=== PATIENT | female | born 1970 | race Caucasian/White ===

== ENCOUNTER 2017-08-11 17:50 | Observation (INO) ==
[2017-08-11] MEDS ORDERED: Aspirin 81 MG TAB.CHEW PO ONE (17:55)
--- NOTE | 2017-08-11 18:00 | Emergency Department Note ---
Disposition Clinical Impression: Chest pain Qualifiers: Chest pain type: unspecified Qualified Code(s): R07.9 - Chest pain, unspecified Dyspnea Qualifiers: Dyspnea type: unspecified Qualified Code(s): R06.00 - Dyspnea, unspecified Disposition: Admitted As Inpatient Condition: Good Referrals: Vishal Ramirez MD [Primary Care Provider] - Forms: ED Satisfaction Letter Time of Disposition: 19:24 Chest Pain HPI - General Chief Complaint: ED Chest Pain Stated Complaint: CP,AZAEL Time Seen by Provider: 08/11/17 17:53 Source: patient Mode of arrival: wheelchair Limitations: no limitations Vital Signs Reviewed: Yes Nursing Notes Reviewed: Yes - History of Present Illness HPI Narrative: 46-year-old comes in complaining of chest pain and shortness of breath for the last 2 months. Patient does have a history of CHF in the past. States that she spoke to her doctor on Saturday and the plan was to get an echo which has not been ordered yet. She states she has some exertional dyspnea. Review of records indicate an echo done back in May 2016 showed an EF of 50%, and a nuclear stress was negative at that time. Pt complaint: chest pain, other Onset (ago): week(s) (Dyspnea for) Onset: during exertion Pain Location: substernal, left chest Severity: moderate Quality: tightness, aching Pain Radiation: none Improves with: nothing Worsens with: exertion - Related Data Home Medications Medication Instructions Recorded Confirmed Carvedilol [Coreg] 25 mg PO BID 03/29/16 06/22/16 Losartan Potassium [Cozaar] 100 mg PO DAILY 03/29/16 06/22/16 Insulin Glargine,Hum.rec.anlog 50 unit SQ HS 06/22/16 06/22/16 [Lantus Solostar] Lantus 01/01/17 Lyrica 01/01/17 Amoxil 01/21/17 Eardrops 01/21/17 Previous Rx's Medication Instructions Recorded Promethazine [Phenergan] 25 mg PO Q6-8H PRN #9 tablet 01/01/17 Carbamide Peroxide 5 - 10 drop RIGHT EAR BID 4 Days 01/21/17 drops Allergies Allergy/AdvReac Type Severity Reaction Status Date / Time No Known Allergies Allergy Verified 06/22/16 08:56 All systems ED: reviewed and negative except as stated. Constitutional: Denies: fever, chills, weakness, weight change Eyes: Denies: eye pain, eye discharge, vision change ENT ED: Denies: ear pain, throat pain, dental pain, hearing loss, epistaxis, congestion, dysphagia Cardiovascular: Reports: chest pain, dyspnea on exertion. Denies: palpitations , edema, syncope Respiratory: Denies: cough, dyspnea, wheezes, hemoptysis, stridor Gastrointestinal: Denies: abdominal pain, nausea, vomiting, diarrhea, constipation, hematemesis, melena, hematochezia Genitourinary: Denies: dysuria, frequency, hematuria, discharge Musculoskeletal: Denies: back pain, neck pain, arthralgia, myalgia Integumentary: Denies: rash, abrasion, lesions Neurological: Denies: headache, weakness, numbness, paresthesias, confusion, abnormal gait, vertigo Psychiatric: Denies: anxiety, depression, suicidal thoughts, homicidal thoughts , auditory hallucinations, visual hallucinations Endocrine: Denies: fatigue Hematological/Lymphatic: Denies: easy bleeding, easy bruising Allergic/Immunologic: Denies: facial swelling, urticaria Chest Pain PMH - Past Medical History Medical history: Reports: other Surgical history: Reports: Psychiatric history: Reports: no psych history [employer] history: Reports: no [employer] history - Social History Smoking Status: Never smoker Alcohol use: Reports: none Drug use: Reports: none Physical Exam - General Limitations: no limitations General appearance: alert, in no apparent distress - Head Head exam: atraumatic, normocephalic, normal inspection - Eye Eye exam: Present: normal appearance - ENT ENT exam: normal exam, normal oropharynx, mucous membranes moist - Neck Neck exam: Present: normal inspection, full ROM, trachea midline - Chest Chest inspection: Present: normal inspection, symmetric chest wall rise - Respiratory Respiratory exam: Present: normal lung sounds bilaterally - Cardiovascular Cardiovascular exam: Present: regular rate, normal rhythm, normal heart sounds - Abdominal Exam Abdominal exam: Present: soft, Non-Tender. Absent: tenderness, distention, guarding, rebound, rigidity - Extremities Exam Extremities exam: Present: normal inspection, full ROM. Absent: tenderness, pedal edema - Expanded Lower Extremity Exam Neurovascular/Tendon exam: Absent: motor deficit, sensory deficit, tendon deficit Gait: not tested/not observed - Back Exam Back exam: Present: normal inspection, full ROM. Absent: tenderness - Neurological Exam Neurological exam: Present: alert - Psychiatric Psychiatric exam: Present: normal affect, normal mood - Skin Skin exam: Present: warm, dry, intact, normal color Course - Reevaluation(s) Reevaluation #1: 46-year-old with history CHF comes in complaining of increasing exertional dyspnea started about 2 months ago has gotten progressively worse. Workup here showed EKG shows underlying rhythm appears to be same as previous however she does have frequent PVCs. BNP is elevated 324 chest x-ray shows right perihilar opacities. No evidence of congestive changes. We'll admit. Time: 19:24 - Consultations Consultation #1: Discussed with Remedios Iverson, admit Time: 19:23 Vital Signs Temperature 98.1 F 08/11/17 17:56 Pulse Rate 85 08/11/17 17:56 Respiratory Rate 20 08/11/17 17:56 Blood Pressure 173/122 08/11/17 17:56 O2 Sat by Pulse Oximetry 94 08/11/17 17:56 Temperature 98.1 F 08/11/17 17:56 Pulse Rate 91 08/11/17 18:59 Respiratory Rate 18 08/11/17 18:59 Blood Pressure 164/89 08/11/17 18:59 O2 Sat by Pulse Oximetry 90 08/11/17 18:59 Oxygen Delivery Oxygen Delivery Room Air Chest Pain - Lab Data Result diagrams: 08/11/17 18:09 08/11/17 18:09 Lab Results 08/11/17 08/11/17 08/11/17 Range/Units 18:09 18:09 18:09 WBC 8.5 (4.3-11.1) K/mcL RBC 5.09 H (3.82-4.97) M/mcL Hgb 13.5 (11.5-15.4) g/dL Hct 41.6 (35.3-44.9) % MCV 81.7 L (83.0-100.0) fL MCH 26.5 L (28.0-33.3) pg MCHC 32.5 (31.6-35.5) g/dL RDW 13.3 (11.5-14.5) % Plt Count 188 (140-400) K/mcL MPV 12.0 (9.4-12.4) fL Immature Gran % 0.4 (0-4) % Seg Neutrophils % 66.2 % Lymphocytes % 27.1 % Monocytes % 4.7 % Eosinophils % 1.1 % Basophils % 0.5 % Neutrophils # 5.7 (1.6-8.9) K/mcL Lymphocytes # 2.3 (0.6-4.6) K/mcL Monocytes # 0.4 (0.0-1.3) K/mcL Eosinophils # 0.1 (0.0-0.6) K/mcL Basophils # 0.0 (0.0-0.2) K/mcL PT 11.7 (9.4-12.1) Seconds INR 1.1 APTT 32.6 (26.0-36.0) Seconds Sodium 135 L (136-145) mEq/L Potassium 3.9 (3.5-4.5) mEq/L Chloride 102 (98-109) mEq/L Carbon Dioxide 22 (19-29) mEq/L BUN 16 (7-20) mg/dL Creatinine 0.82 (0.57-1.11) mg/dL Est GFR ( Amer) > 60 (> 60) Est GFR (Non-Af Amer) > 60 (> 60) BUN/Creatinine Ratio 20 (6-26) Glucose 264 H (70-99) mg/dL Calculated Osmolality 290 (280-300) Calcium 9.1 (8.6-10.8) mg/dL Troponin I (0-0.03) ng/mL B-Natriuretic Peptide (0-100) pg/mL 08/11/17 08/11/17 Range/Units 18:09 18:09 WBC (4.3-11.1) K/mcL RBC (3.82-4.97) M/mcL Hgb (11.5-15.4) g/dL Hct (35.3-44.9) % MCV (83.0-100.0) fL MCH (28.0-33.3) pg MCHC (31.6-35.5) g/dL RDW (11.5-14.5) % Plt Count (140-400) K/mcL MPV (9.4-12.4) fL Immature Gran % (0-4) % Seg Neutrophils % % Lymphocytes % % Monocytes % % Eosinophils % % Basophils % % Neutrophils # (1.6-8.9) K/mcL Lymphocytes # (0.6-4.6) K/mcL Monocytes # (0.0-1.3) K/mcL Eosinophils # (0.0-0.6) K/mcL Basophils # (0.0-0.2) K/mcL PT (9.4-12.1) Seconds INR APTT (26.0-36.0) Seconds Sodium (136-145) mEq/L Potassium (3.5-4.5) mEq/L Chloride (98-109) mEq/L Carbon Dioxide (19-29) mEq/L BUN (7-20) mg/dL Creatinine (0.57-1.11) mg/dL Est GFR ( Amer) (> 60) Est GFR (Non-Af Amer) (> 60) BUN/Creatinine Ratio (6-26) Glucose (70-99) mg/dL Calculated Osmolality (280-300) Calcium (8.6-10.8) mg/dL Troponin I 0.01 (0-0.03) ng/mL B-Natriuretic Peptide 354 H (0-100) pg/mL - EKG Data EKG attestation: Yes I reviewed and interpreted this EKG. EKG shows normal: sinus rhythm Rate: normal Rhythm: NSR, PVC's When compared to previous EKG there are: changes noted (H and underlying morphology looks similar to previous EKG done on 06/23/2016 however recurrent PVCs are new) Heart Score - Score History: Moderately Suspicious EKG: Non Specific repolarisation Disturbance Age: 45-65 Risk Factors: Equal/Greater than 3 risk factor or history of atherosclerotic disease Troponin: Less than normal limit HEART Score Total: 5
[2017-08-11 18:25] LABS: Basophils % 0.5 %; Eosinophils # 0.1 K/mcL (0.0-0.6); Eosinophils % 1.1 %; Hematocrit 41.6 % (35.3-44.9); Hemoglobin 13.5 g/dL (11.5-15.4); Immature Granulocytes % 0.4 % (0-4); Lymphocytes # 2.3 K/mcL (0.6-4.6); Lymphocytes % 27.1 %; Mean Corpuscular HGB Conc 32.5 g/dL (31.6-35.5); Mean Corpuscular Hemoglobin 26.5 pg (28.0-33.3); Mean Corpuscular Volume 81.7 fL (83.0-100.0); Monocytes # 0.4 K/mcL (0.0-1.3); Monocytes % 4.7 %; Neutrophils # 5.7 K/mcL (1.6-8.9); Platelet Count 188 K/mcL (140-400); Red Blood Count 5.09 M/mcL (3.82-4.97); Red Cell Distribution Width 13.3 % (11.5-14.5); Segmented Neutrophils % 66.2 %
[2017-08-11 18:30] LABS: INR 1.1; Prothrombin Time 11.7 Seconds (9.4-12.1)
[2017-08-11 18:32] LABS: Activated Partial Thrombo Time 32.6 Seconds (26.0-36.0)
[2017-08-11 18:38] LABS: BUN/Creatinine Ratio 20 (6-26); Blood Urea Nitrogen 16 mg/dL (7-20); Calcium 9.1 mg/dL (8.6-10.8); Carbon Dioxide 22 mEq/L (19-29); Chloride 102 mEq/L (98-109); Glucose 264 mg/dL (70-99); Osmolality,Calculated 290 (280-300); Potassium 3.9 mEq/L (3.5-4.5); Sodium 135 mEq/L (136-145); eGFR For African Americans > 60 (> 60); eGFR For Non-African Americans > 60 (> 60)
[2017-08-11] MEDS ORDERED: Furosemide 40 MG/4 ML VIAL IVP ONE (19:12)
[2017-08-11] MEDS ORDERED: Nitroglycerin 1 INCH/GM PACKET TP ONE (19:13)
--- NOTE | 2017-08-11 21:34 | Internal Med History&Physical ---
Date of Encounter: 08/11/17 Time of Encounter: 21:34 Assessment and Plan (1) Dyspnea Current visit: Yes Status: Acute Patient reports acute on chronic dyspnea on exertion dating back to 2-3 months ago. She denies chest pain. She also endorsed weight gain in the past 2 months. Patient does have history of CHF but is currently euvolemic. Patient endorsed symptoms and signs consistent with obstructive sleep apnea and obesity hypoventilation syndrome. CXR with non-specific per-mediastinal opacities We will obtain echocardiogram. Her dyspnea seems to be possibly secondary to TAURUS/OHS. Oxygen supplementation when necessary PFT as out-patient Qualifiers: Dyspnea type: dyspnea on exertion Qualified Code(s): R06.09 - Other forms of dyspnea (2) Congestive heart failure (CHF) Current visit: Yes Status: Chronic Patient with chronic diastolic CHF. She does present with dyspnea on exertion, however patient is on Lasix at home and has no evidence of hypovolemia. She has no JVD, her chest is clear to auscultation bilaterally, chest x-ray shows no pulmonary edema or pulmonary vascular congestion, she has no pedal edema. She is a non-smoker We will continue her home doses of Lasix. We will repeat echocardiogram Qualifiers: Congestive heart failure type: diastolic Congestive heart failure chronicity: chronic Qualified Code(s): I50.32 - Chronic diastolic (congestive ) heart failure (3) HTN (hypertension) Current visit: Yes Status: Chronic Uncontrolled hypertension Resume home medications and titrate when necessary Qualifiers: Hypertension type: essential hypertension Qualified Code(s): I10 - Essential (primary) hypertension (4) Hypothyroid Current visit: Yes Status: Chronic Check TSH. Continue home doses of Synthroid. Qualifiers: Hypothyroidism type: unspecified Qualified Code(s): E03.9 - Hypothyroidism , unspecified (5) Insulin dependent diabetes mellitus Current visit: Yes Status: Chronic Fingerstick before meals at bedtime Resume insulin. Diabetic diet (6) Obesity (BMI 30-39.9) Current visit: Yes Status: Chronic Lifestyle modification Internal Medicine - H&P: HPI Chief complaint: Dyspnea on exertion Admitted From: Home Plans for Post Hospital Care: Home History of present illness: Ms. Woo is a 46 year old female with medical history of obesity, diabetes mellitus, hypertension, hypothyroidism, CHF with preserved ejection fraction. Patient presents to the ER with complaints of a 2 month history of shortness of breath on exertion. She denies chest pain. The patient reports that she has been having dyspnea on exertion and upon laying down for the past 2 months. She also reports having had to sleep in a recliner because of dyspnea. She denies PND. She presented to her primary care physician 3 days ago and ordered an echocardiogram however, patient reports she was also concerned with her dyspnea his she presented to the ER. The patient also reports that her partner has found her not breathing on many nights, with associated apneic episodes. She denies leg swelling. She is chronically on Lasix for her CHF. She denies any abdominal symptoms. She does not for home oxygen. Workup in the ER reveals essentially normal chemistry and CBC, troponin is negative. BNP 354. Chest x-ray shows right paramediastinal opacities that are nonspecific. Her EKG shows normal sinus rhythm with low voltage and other findings consistent with pulmonary disease. She had a catheter in 2012 and was normal. She had a negative stress test in 2016. Echocardiogram approximately 1 year ago was mild diastolic dysfunction. Past Med Surg Social Fam HX - Past Medical History Medical history: CHF, diabetes, hypertension, other Psychiatric history: anxiety - Past Surgical History Surgical History: - Social History Smoking Status: Never smoker Smokeless Tobacco Status: No Alcohol use: none Drug use: none - Family History Sister Living Status: Still Living Hx Family Cardiac Disorders: Yes Hx Family Endocrine Disorder: Yes Internal Medicine - H&P: Meds Carvedilol [Coreg] 25 mg PO BID 03/29/16 [History] Losartan Potassium [Cozaar] 100 mg PO DAILY 03/29/16 [History] Insulin Glargine,Hum.rec.anlog [Lantus Solostar] 30 unit SQ BID 06/22/16 [ History] Lyrica 100 mg PO TID 01/01/17 [History] DULoxetine [Cymbalta] 30 mg PO DAILY 08/11/17 [History] Furosemide [Lasix] 40 mg PO HS 08/11/17 [History] Levothyroxine [Synthroid] 75 mcg PO DAILY 08/11/17 [History] Levothyroxine [Synthroid] mcg PO 08/11/17 [History] 3 Allergy/AdvReac Type Severity Reaction Status Date / Time No Known Allergies Allergy Verified 06/22/16 08:56 All Systems PM: A 10-system review of systems was performed and is negative for pertinent findings except as documented above in the HPI. - Constitutional Constitutional: no chills, no fever(s), no night sweats - EENT Eyes: no change in vision, no discharge, no pain, no photophobia Nose, mouth and throat: no dysphagia, no nasal discharge, no neck pain, no sore throat - Cardiovascular Cardiovascular ROS IM: as per HPI - Respiratory Respiratory: as per HPI - Gastrointestinal Gastrointestinal: no abdominal pain, no diarrhea, no hematemesis, no hematochezia, no melena, no nausea, no vomiting - Genitourinary Genitourinary: no change in urinary stream, no dysuria, no flank pain, no hematuria - Musculoskeletal Musculoskeletal ROS IM: no numbness, no tingling - Integumentary Integumentary IM: no rash, no unusual bruising - Neurological Neurological ROS: no confusion, no convulsions, no focal weakness, no numbness, no tingling, no tremor(s) - Hematologic/Lymphatic Hematologic/Lymphatic: no easy bruising - Constitutional Vitals: Temp Pulse Resp BP Pulse Ox 98.1 F 83 20 168/94 90 08/11/17 17:56 08/11/17 19:48 08/11/17 20:35 08/11/17 20:35 08/11/17 19:54 General appearance: Present: A&O X 3, pleasant, no acute distress, obese, answers questions appropriately - Head Head exam: Present: atraumatic, normocephalic - Eye Eye exam: Present: PERRL, conjuntiva pink, sclera anicteric Pupils: Present: PERRL - ENT ENT exam: Present: mucous membranes moist - Neck Additional comments: No JVD - Respiratory Additional comments: Visit to auscultation bilaterally, no wheezing or crackles nor rhonchi - Cardiovascular Cardiovascular exam: Present: RRR, +S1, +S2. Absent: diastolic murmur, gallop, rubs, systolic murmur - GI/Abdominal GI/Abdominal exam: Present: normal bowel sounds, soft, no peritoneal signs. Absent: distended, tenderness - Extremities Exam Extremities exam: Present: warm, radial pulses palpable and symmetrical. Absent : calf tenderness, cyanotic, pedal edema - Neurological Exam Neurological exam: Present: alert, CN II-XII intact, oriented X3, no focal deficits. Absent: pronater drift, facial droop, speech deficit - Skin Skin exam: Present: dry, intact Internal Med - H&P Results - Labs CBC & Chem 7: 08/11/17 18:09 08/11/17 18:09
[2017-08-11] MEDS ORDERED: *HR* HYDROcodone/Acet 5/325 mg TABLET PO PRN (21:39)
[2017-08-11] MEDS ORDERED: *HR* Morphine 2 MG/ML SYRINGE IVP PRN (21:39)
[2017-08-11] MEDS ORDERED: Naloxone 0.4 MG/ML INJ IVP PRN (21:39)
[2017-08-11] MEDS ORDERED: Acetaminophen 325 MG TABLET PO PRN (21:39)
[2017-08-11] MEDS ORDERED: Ondansetron 4 MG/2 ML VIAL IVP PRN (21:39)
[2017-08-11] MEDS ORDERED: D5% in Water 1,000 ML IVC PRN (22:34)
[2017-08-11] MEDS ORDERED: *HR* Dextrose 50 % in Water (Syg) 50 ML SYRINGE IVP PRN (22:34)
[2017-08-11] MEDS ORDERED: Dextrose Gel 15 GM PO PRN ×2 (22:34)
[2017-08-12] MEDS: *HR* Heparin 5,000 UNIT/ML VIAL SQ SCH ×3 (00:43→15:48)
[2017-08-12 05:17] LABS: Basophils % 0.5 %; Eosinophils # 0.2 K/mcL (0.0-0.6); Eosinophils % 2.7 %; Hemoglobin 12.9 g/dL (11.5-15.4); Immature Granulocytes % 0.2 % (0-4); Lymphocytes % 33.7 %; Mean Corpuscular HGB Conc 32.3 g/dL (31.6-35.5); Mean Corpuscular Hemoglobin 26.7 pg (28.0-33.3); Mean Corpuscular Volume 82.8 fL (83.0-100.0); Mean Platelet Volume 12.4 fL (9.4-12.4); Monocytes # 0.4 K/mcL (0.0-1.3); Monocytes % 7.2 %; Neutrophils # 3.3 K/mcL (1.6-8.9); Platelet Count 164 K/mcL (140-400); Red Blood Count 4.83 M/mcL (3.82-4.97); Red Cell Distribution Width 13.4 % (11.5-14.5); Segmented Neutrophils % 55.7 %
[2017-08-12 05:46] LABS: BUN/Creatinine Ratio 20 (6-26); Blood Urea Nitrogen 18 mg/dL (7-20); Calcium 9.1 mg/dL (8.6-10.8); Carbon Dioxide 24 mEq/L (19-29); Chloride 101 mEq/L (98-109); Glucose 394 mg/dL (70-99); Osmolality,Calculated 298 (280-300); Potassium 3.8 mEq/L (3.5-4.5); Sodium 135 mEq/L (136-145); eGFR For African Americans > 60 (> 60); eGFR For Non-African Americans > 60 (> 60)
[2017-08-12] MEDS: Insulin LISPRO 300 UNITS/3 ML VIAL SQ SCH ×6 (08:11→17:40)
[2017-08-12] MEDS: Pregabalin 50 MG CAPSULE PO SCH ×2 (08:12→15:48)
[2017-08-12] MEDS ORDERED: Furosemide 40 MG/4 ML VIAL IVP SCH (09:00)
--- NOTE | 2017-08-12 12:17 | Cardiology Consult Note ---
Date of Encounter: 08/12/17 Time of Encounter: 12:15 Assessment and Plan (1) Chest pain Current Visit: Yes Status: Acute Per Cardiology: CT Negative PE. Trop negative x 1. Had negative stress test June 2016. Current echo shows EF 50%, moderate diastolic dysfunction, no significant valvular dysfunction. Atypical CP-- occurs at rest, with coughing, and deep inspiration. Normal coronary angiogram 2012. Negative nuclear stress test 2015. EF on echo 50%, no significant valvular abnormality. No further ischemic evaluation warranted at this time. Consider non-cardiac causes of CP. Discussed with Dr. Proctor, will s/o, re-consult PRN, has follow-up scheduled. Patient and verbalized understanding and agreed with plan. Qualifiers: Chest pain type: unspecified Qualified Code(s): R07.9 - Chest pain, unspecified (2) Congestive heart failure (CHF) Current Visit: Yes Status: Chronic Per Cardiology: Last echo May 2016 showed EF 50%, mild to moderate LV dilation, mild diastolic dysfunction. Current echo shows moderate diastolic dysfunction. BNP only 354. Chest x-ray shows no effusions. Clinically euvolemic on exam. On IV Lasix 40mg daily-- takes Lasix 40mg PO daily at home. Reports weight up about 15 lbs over past few months. Qualifiers: Congestive heart failure type: diastolic Congestive heart failure chronicity: chronic Qualified Code(s): I50.32 - Chronic diastolic (congestive ) heart failure (3) PVC (premature ventricular contraction) Current Visit: Yes Status: Chronic Per Cardiology: Hx of PVCs. Appears asymptomatic. On BB. Discussion w patient/family: The assessment and plan as outlined above was discussed with the patient and/or family members who expressed understanding and agreement. All questions were answered. Thank you for involving us in the care of your patient. Please call with any questions. History of Present Illness Consult date: 08/12/17 Consult reason: CP, CHF Chief complaint: CP, SOB History of present illness: Ms. Woo is a 46 year old female with a relevant past medical history of hypertension, hypothyroidism, diabetes mellitus type 2, CHF. Last seen by Dr. Thomas November 2016 with cardiology. Cardiology consult for diastolic heart failure and chest pain. Patient reports left chest wall aching sensation with coughing and deep inspiration. She reports chronic now for about 2 months with dry persistent cough. She denies any fever, chills, nausea, vomiting, diarrhea. Reports cough nonproductive. She reports concern of overall 15 pound weight gain over the past few months. Denies any edema or swelling. Reports takes Lasix 40 mg by mouth daily at home. She reports she feels "suffocating". She indicates difficulty with breathing at rest and with exertional activities. reports she stops breathing at night and snores. Never been diagnosed with sleep apnea in the past. She denies any history of nicotine abuse. She denies any active bleeding or blood loss. Denies any palpitations. Reports history PVCs. Past Med Surg Social Fam HX - Past Medical History Attestation: Yes The following information was validated with the patient. Source: patient, old records reviewed Medical history: CHF, diabetes, hypertension, other Psychiatric history: anxiety - Past Surgical History Surgical History: - Social History Smoking Status: Never smoker Smokeless Tobacco Status: No Alcohol use: none Drug use: none - Family History Sister Living Status: Still Living Hx Family Cardiac Disorders: Yes Hx Family Endocrine Disorder: Yes Medications and Allergies Carvedilol [Coreg] 25 mg PO BID 03/29/16 [History] Losartan Potassium [Cozaar] 100 mg PO DAILY 03/29/16 [History] Insulin Glargine,Hum.rec.anlog [Lantus Solostar] 30 unit SQ BID 06/22/16 [ History] Lyrica 100 mg PO TID 01/01/17 [History] DULoxetine [Cymbalta] 30 mg PO DAILY 08/11/17 [History] Furosemide [Lasix] 40 mg PO HS 08/11/17 [History] Levothyroxine [Synthroid] 75 mcg PO DAILY 08/11/17 [History] Levothyroxine [Synthroid] mcg PO 08/11/17 [History] 3 Allergy/AdvReac Type Severity Reaction Status Date / Time No Known Allergies Allergy Verified 06/22/16 08:56 All Systems Review: A 10-system review of systems was performed and is negative for pertinent findings except as documented above in the HPI. - Constitutional Constitutional: fatigue - Cardiovascular Cardiovascular: as per HPI, chest pain at rest, dyspnea at rest, dyspnea on exertion Physical Examination Vital Signs, Last 4 Hours Temp Pulse Resp BP Pulse Ox 08/12/17 11:13 97.6 F 65 16 112/75 96 General: Conversant, No Apparent Distress HEENT: Atraumatic, Normocephaly, Mucus Membranes Moist Neck: No JVD, Normal carotid pulses Cardiac: Reg Rate and Rhythm, Normal S1 and S2, No Murmur Lungs: Normal Breath Sounds, No Wheeze, Rales, Rhonchi Neuro: Alert and responsive, No focal deficits noted Abdomen: Soft, Non-Tender Skin: No rashes noted on visualized skin Musculoskeletal: No Chest Wall Tenderness Extremities: No Clubbing, No Cyanosis, No Edema, Normal Pulses Results 08/12/17 04:38 08/12/17 04:38 Lab Results Laboratory Tests 08/11/17 08/11/17 08/11/17 18:09 18:09 18:09 INR 1.1 Troponin I 0.01 B-Natriuretic Peptide 354 H TSH 08/12/17 04:38 INR Troponin I B-Natriuretic Peptide TSH 5.687 H ITS Impressions Chest X-Ray 08/11/17 17:55 IMPRESSION: Mild hazy right paramediastinal opacities. D/ / Avel Vazquez MD / Avel Vazquez MD Interpreting Provider: Avel Vazquez MD Chest CTA 08/12/17 00:01 IMPRESSION: 1. No evidence of pulmonary embolism. 2. Constellation of findings as described is suggestive of CHF. 3. Enlarged central pulmonary trunk which may be correlated for pulmonary hypertension. D/ / Parag Ramos MD / Parag Ramos MD Interpreting Provider: Parag Ramos MD Echocardiogram 08/12/17 21:46 Impressions: LVEF 50%. Many LV segments were not well visualized. Overall, LVEF appears grossly low normal. Mildly dilated left ventricle. Moderate left ventricular diastolic dysfunction. Mildly dilated right ventricle with normal function. Moderately dilated left atrium. No evidence of pulmonary hypertension. No obvious significant valvular dysfunction. Contrast enhancement should be used with future echocardiograms. Findings: Study Quality * Technically sub-optimal due to body habitus. ECG Findings * Normal sinus rhythm. Left Ventricle * LVEF 50%. Many LV segments were not well visualized. Overall, LVEF appears grossly low normal. * Mildly dilated left ventricle. * Moderate left ventricular diastolic dysfunction. Right Ventricle * Mildly dilated right ventricle with normal function. Left Atrium * Moderately dilated left atrium. Right Atrium * Mildly dilated right atrium. Interatrial Septum * Interatrial septum not well evaluated. Aortic Valve * Aortic valve not well visualized. * No aortic regurgitation. * No aortic stenosis. Mitral Valve * Normal mitral valve structure and function. * No mitral stenosis. * No mitral regurgitation. Tricuspid Valve * Normal tricuspid valve structure and function. * Trace tricuspid regurgitation. * No evidence of pulmonary hypertension. Pulmonic Valve * Pulmonic valve not well visualized. Aorta * Normally sized aortic root. Pericardium * The pericardium appears normal. IVC * Normal IVC dimensions and inspiratory collapse. Pulmonary Artery * Normal visualized portions of the main pulmonary artery. - Imaging and Cardiology Chest Xray: report reviewed Stress Test: report reviewed Echo: report reviewed - EKG Interpretation EKG results cardiology: personally reviewed (ST with PVCs), other Consult Discharge Plan - Plan [place] [facility] [place] [Primary Care Provider] -
[2017-08-12 14:39] VITALS: BP 126/81
--- NOTE | 2017-08-12 14:58 | Electrocardiograph Report ---
[address] [address] Test Date: 2017-08-11 Pat Name: Ally Woo Department: 102 Room: 3A33 Gender: F Block Mason: George : 1970 Requested By: Juan Méndez Order Number: [id number] Reading MD: Josué Castillo MD Measurements Intervals [place] Rate: 102 P: 17 OR: 161 QRS: 34 QRSD: 88 T: 10 QT: 424 QTc: 483 Interpretive Statements SINUS TACHYCARDIA WITH FREQUENT VENTRICULAR PREMATURE COMPLEXES INDETERMINATE AXIS LOW QRS VOLTAGE IN EXTREMITY LEADS Poor R wave progression Electronically Signed On 08-12-2017 14:56:36 EDT by Josué Castillo MD
--- NOTE | 2017-08-12 16:16 | Discharge Summary ---
Date of Encounter: 08/12/17 Time of Encounter: 16:14 - Discharge Diagnosis (1) Congestive heart failure (CHF) Priority: Primary Status: Chronic Qualifiers: Congestive heart failure type: diastolic Congestive heart failure chronicity: acute on chronic Qualified Code(s): I50.33 - Acute on chronic diastolic (congestive) heart failure (2) Dyspnea Priority: Secondary Status: Acute Qualifiers: Dyspnea type: dyspnea on exertion Qualified Code(s): R06.09 - Other forms of dyspnea (3) HTN (hypertension) Priority: Secondary Status: Chronic Qualifiers: Hypertension type: essential hypertension Qualified Code(s): I10 - Essential (primary) hypertension (4) Hypothyroid Priority: Secondary Status: Chronic Qualifiers: Hypothyroidism type: unspecified Qualified Code(s): E03.9 - Hypothyroidism , unspecified (5) Insulin dependent diabetes mellitus Priority: Secondary Status: Chronic (6) Obesity (BMI 30-39.9) Priority: Secondary Status: Chronic (7) Bilateral pleural effusion Priority: Secondary Status: Acute - Discharge Medications Prescriptions: Furosemide [Lasix] 40 mg PO BID #30 tablet Home Medications: Carvedilol [Coreg] 25 mg PO BID 03/29/16 [History] Losartan Potassium [Cozaar] 100 mg PO DAILY 03/29/16 [History] Insulin Glargine,Hum.rec.anlog [Lantus Solostar] 30 unit SQ BID 06/22/16 [ History] Lyrica 100 mg PO TID 01/01/17 [History] DULoxetine [Cymbalta] 30 mg PO DAILY 08/11/17 [History] Levothyroxine [Synthroid] 75 mcg PO DAILY 08/11/17 [History] Levothyroxine [Synthroid] mcg PO 08/11/17 [History] Furosemide [Lasix] 40 mg PO BID #30 tablet 08/12/17 [Rx] Allergies/Adverse Reactions: 3 Allergy/AdvReac Type Severity Reaction Status Date / Time No Known Allergies Allergy Verified 06/22/16 08:56 Procedures/tests Complete & Pending: Procedures Performed prior 72 hours Category Date Time Status CT angio chest [CT] Stat Cat Scan 08/12/17 00:01 Completed EV echocardiogram Routine Y 08/12/17 21:46 Completed - Notes to Outpatient Provider TSH slightly elevated at 5.6. Consider increasing the levothyroxine dosage if not recently increased. Date of admission: 08/11/17 20:04 Primary care physician: Vishal Ramirez MD Consults: 08/12/17 11:27 Consult to Cardiology [CONS] Routine Comment: Consulting Provider: Olaf Pino Reason for Consult: Diastolic CHF- per Echo/ Chest pain Time Notified: 11:31 Call Completed: Yes Discharging clinician: Lu Liriano Anticipated date of discharge: 08/12/17 - Patient Status Disposition: Home, Self-Care Condition: Good Functional capacity at discharge: independent ambulation Overall status at discharge: patient is progressing back to baseline - Ambulatory Orders Ambulatory Orders: XR chest 1V [XR] Time Frame: 1 Month, Facility: [facility], Location: Radiology Basic Metabolic Panel [CHEM] Time Frame: 1 Week, Facility: [facility], Location: Lab - Discharge Instructions Instructions: Heart Failure (DC), Chronic Hypertension (DC) Follow Up With: Vishal Ramirez MD [Primary Care Provider] - (in 1 week) Additional Instructions: Follow up with cardiology as scheduled. Sleep study as outpatient. Take Lasix 40 mg twice daily for 1 week and then change back to 40 mg daily. - Diet and Activity Activity: increase activity as tolerated (Return to work 08/14/17) Diet: diabetic diet, low fat, low cholesterol, low salt diet, other (Fluid restriction to 1.5-2 L per 24 hours) Hospital course: Ms. Woo is a 46 year old female sent with a history of diastolic heart failure who came to the ER with complaints of worsening exertional dyspnea for the past 2-3 months with worsening weight gain, orthopnea and PND. She had also been having episodes of snoring at night she stops breathing. She follows up with cardiology as outpatient. Her chest x-ray suggested pulmonary congestion. CT scan of the chest was also done which did not show any pulmonary embolism. Patient did have mild to moderate bilateral pleural effusions. Her BNP was slightly elevated at 354 which is above her baseline. She had also been having increased weight gain recently. Given these findings, she was observed for evaluation for dyspnea and exertion possibly related to acute congestive heart failure. She was treated with IV Lasix. This morning she feels somewhat better but also reported some left-sided chest pain. Cardiology was consulted. They evaluated the patient and did not think that the patient was having anginal pain. They recommended no further ischemic workup. For her heart failure, and recommended continuing Lasix and outpatient follow-up in the clinic. At this time, patient is stable to be discharged home. I am increasing her Lasix dosage to 40 mg twice daily which she can continue for 1 week and then switch back down to 40 mg daily. She will also be referred for sleep study as outpatient as she is having undiagnosed obstructive sleep apnea. I did discuss with her about the need to do pulmonary function tests but the symptoms that she had lung function test done within the past 2 years which did not show any obstructive disease. Patient does have hypothyroidism and takes levothyroxine. Her TSH level was 5.6. She can follow up further with her primary care provider. I do recommend increasing dosage of levothyroxine if this was not recently increased. - Time Spent with Patient Total time spent providing and/or coordinating discharge services: Greater than 30 minutes (32 min) - Constitutional Vitals: Temp Pulse Resp BP Pulse Ox 97.4 F L 63 16 126/81 97 08/12/17 14:36 08/12/17 14:36 08/12/17 14:36 08/12/17 14:36 08/12/17 14:36 General appearance: Present: A&O X 3, pleasant, no acute distress, obese, answers questions appropriately - Neck Neck exam general surgery: Present: supple, trachea midline. Absent: lymphadenopathy - Respiratory Respiratory exam: Present: decreased breath sounds (At both bases). Absent: accessory muscle use, rales, rhonchi, wheezes - Cardiovascular Cardiovascular exam: Present: RRR, +S1, +S2. Absent: diastolic murmur, gallop, rubs, systolic murmur - GI/Abdominal GI/Abdominal exam: Present: normal bowel sounds, soft, no peritoneal signs. Absent: distended, tenderness - Extremities Exam Extremities exam: Present: pedal edema, warm, radial pulses palpable and symmetrical. Absent: calf tenderness, cyanotic
[2017-08-12] MEDS ORDERED: Nitroglycerin 0.4 MG TAB.SUBL SL PRN (16:31)
[2017-08-12] MEDS ORDERED: FLUARIX QUAD 2017-18 36MOS UP/PF 0.5 ML SYRINGE IM ONE (17:11)
[2017-08-12] MEDS ORDERED: Insulin LISPRO 300 UNITS/3 ML VIAL SQ SCH (21:00)
[2017-08-12] MEDS ORDERED: Insulin DETEMIR 100 UNIT/ML X5UNITS SQ SCH (21:00)
== END 2017-08-12 18:00 | disposition home or self-care (01) ==
LOC: EMEROO 17:50 → 3NENU 17:50 → 3ANU 08-12 10:06
PROVIDERS: ADMIT Internal Medicine; ATTEND Internal Medicine

== ENCOUNTER 2019-02-28 15:46 | Inpatient (IN) ==
[2019-02-28] MEDS ORDERED: *HR* HYDROmorphone (PF) 1 MG/ML SYRINGE IVP ONE (17:50)
--- NOTE | 2019-02-28 18:42 | Podiatry Consult Note ---
Date of Encounter: 02/28/19 Time of Encounter: 17:35 Assessment and Plan (1) Closed trimalleolar fracture of right ankle Current visit: Yes Status: Acute Uncontrolled diabetic neuropathic female with right trimalleolar ankle fracture/dislocation unable to be reduced, transferred from [place] I had a thorough review with the patient regarding her injury/condition, my findings, and recommendations for treatment. We discussed the fracture and dislocation of the right ankle joint. We discussed that she will have arthritis of her ankle joint due to her injury. Discussed the fracture does need surgical intervention and with the tenting of the skin present and inability to reduce the ankle the patient will be brought to the operating room for ORIF of the right trimalleolar ankle fracture. Nature of this procedure, risks versus benefits potential complications and consequences of surgery and her condition discussed at length including but not limited to infection bleeding swelling numbness tingling nerve damage persistent or worsening pain heart attack pulmonary embolism blood clot pneumonia scar wound healing problems delayed or nonunion of fracture lack of procedure to produce desired outcome loss of functionality loss of leg need for hardware removal need for further surgery etc. all of her questions were answered and the informed consent was signed. We did discuss a typical course of recovery and she will be nonweightbearing for at least 2-3 months or longer. The patient directly told me that she is not going to be compliant with nonweightbearing status. I told her if she is not compliant in the increased risks she has 4 developing delayed or nonhealing of bone or disrupting the healing and causing deformity and dislocation of her ankle or wound healing problems or other complications that could ultimately result in the loss of her leg or her demise. Patient says she understands. I did discuss with the patient that it is imperative that she control her blood sugar otherwise she is been more likely to have complications. Patient was discussed with hospitalist DANAO. call center associate to OR. Qualifiers: Encounter type: initial encounter Qualified Code(s): S82.851A - Displaced trimalleolar fracture of right lower leg, initial encounter for closed fracture History of Present Illness Chief complaint: right ankle fracture/dislocation HPI: Ms. Woo is a 48 year old uncontrolled diabetic female who was transferred from [place] with a right ankle fracture dislocation. The patient said she had just been discharged from the ER in [facility] where she says she was treated for a UTI and prescribed two antibiotics of which she does not know the name. She went to the [facility]. She says there she twisted her ankle and fell. She was unable to walk and was taken by EMS back to the ER. She says her ankle was deformed. She says she is an uncontrolled diabetic and does have neuropathy but she does have pain all around the right ankle. She says her knees have been unstable and had previously seen Dr. Suarez but does not know if her knees gave out and caused this fall. The ER in [place] reported the ankle fracture was open. I came in to examine the patient. Her ankle was not reduced and skin significantly tenting the skin but not open. She last ate or drank any thing at noon today. She says she is diabetic and it is not controlled well. She does not know her A1c but says she knows it's higher than 10%. Past Med Surg Social Fam HX - Past Medical History Medical history: CHF, diabetes, hypertension, migraine, thyroid disease, other Additional medical history: UTI Psychiatric history: anxiety - Past Surgical History Surgical History: Additional surgical history: LEEP procedure x2 - Social History Smoking Status: Never smoker Smokeless Tobacco Status: No Alcohol use: none Drug use: none - Family History Sister Living Status: Still Living Hx Family Cardiac Disorders: Yes (MIx2) Hx Family Endocrine Disorder: Yes Medications and Allergies Carvedilol [Coreg] 25 mg PO BID 03/29/16 [History] Insulin Glargine,Hum.rec.anlog [Lantus Solostar] 30 unit SQ BID 06/22/16 [History] Lyrica 100 mg PO TID 01/01/17 [History] DULoxetine [Cymbalta] 30 mg PO DAILY 08/11/17 [History] Levothyroxine [Synthroid] 75 mcg PO DAILY 08/11/17 [History] Furosemide [Lasix] 40 mg PO BID #30 tablet 08/12/17 [Rx] Allergy/AdvReac Type Severity Reaction Status Date / Time No Known Allergies Allergy Verified 06/22/16 08:56 All Systems Reviewed: The remainder of the systems were reviewed and are negative - Constitutional Constitutional: no fever(s) - Cardiovascular Cardiovascular: no chest pain, no dyspnea - Respiratory Respiratory: no cough, no dyspnea - Musculoskeletal Musculoskeletal: as per HPI, joint swelling, numbness, other (ankle deformity) Physical Exam - Constitutional Vitals: Temp Pulse Resp BP Pulse Ox 97.7 F 68 16 117/70 97 02/28/19 17:26 02/28/19 17:26 02/28/19 17:26 02/28/19 17:26 02/28/19 17:26 General appearance: cooperative, obese - Head Head exam: Present: atraumatic - Eye Eye exam: Present: EOMI - Respiratory Respiratory exam: Absent: respiratory distress - Cardiovascular Cardiovascular exam: Present: +S1, +S2 - Skin Skin Exam: Present: cyanosis Additional comments: ecchymosis - Ankle & Foot Appearance ankle: swelling, abrasion Tenderness with palpation ankle: anterior ankle, anteromedial ankle, lateral ankle Exam: Capillary refill time is intact to all digits of the right foot. Unable to assess range of motion secondary to injury and pain. Patient has pain with palpation medial lateral and anterior medial ankle. Abrasion is present anteromedial ankle. Small area of necrosis. No exposed bone. The dislocation of the ankle joint is significantly tenting the medial ankle skin. Patient has absent sensation to touch. X-rays: Trimalleolar ankle fracture dislocation Results - Labs Labs: All other labs normal. Consult Discharge Plan - Plan Referrals: Tracy Rizzo CNP [Primary Care Provider] -
--- NOTE | 2019-02-28 19:11 | Internal Med History&Physical ---
Date of Encounter: 02/28/19 Time of Encounter: 17:00 Internal Medicine - H&P: HPI Chief complaint: Ankle pain Admitted From: Home Plans for Post Hospital Care: Home History of present illness: Patient is a 48-year-old female with past medical history significant for systolic heart failure, hypertension, hypothyroid, diabetes and obesity who presents after tripping over a curb fracturing her ankle. Patient was taken to [facility] ER where she was found to have right trimalleolar ankle fracture/dislocation and was subsequently transferred here for surgical management. Surgery team has assessed the patient with recommendations to take patient to the OR today. Past Med Surg Social Fam HX - Past Medical History Medical history: CHF, diabetes, hypertension, migraine, thyroid disease, other Additional medical history: UTI Psychiatric history: anxiety - Past Surgical History Surgical History: Additional surgical history: LEEP procedure x2 - Social History Smoking Status: Never smoker Smokeless Tobacco Status: No Alcohol use: none Drug use: none - Family History Sister Living Status: Still Living Hx Family Cardiac Disorders: Yes (MIx2) Hx Family Endocrine Disorder: Yes Internal Medicine - H&P: Meds Carvedilol [Coreg] 25 mg PO BID 03/29/16 [History] Insulin Glargine,Hum.rec.anlog [Lantus Solostar] 30 unit SQ BID 06/22/16 [History] Lyrica 100 mg PO TID 01/01/17 [History] DULoxetine [Cymbalta] 30 mg PO DAILY 08/11/17 [History] Levothyroxine [Synthroid] 75 mcg PO DAILY 08/11/17 [History] Furosemide [Lasix] 40 mg PO BID #30 tablet 08/12/17 [Rx] Allergy/AdvReac Type Severity Reaction Status Date / Time No Known Allergies Allergy Verified 06/22/16 08:56 All Systems PM: A 10-system review of systems was performed and is negative for pertinent findings except as documented above in the HPI. - Constitutional Vitals: Temp Pulse Resp BP Pulse Ox 97.9 F 63 17 130/79 96 02/28/19 18:40 02/28/19 18:40 02/28/19 18:40 02/28/19 18:40 02/28/19 18:40 Exam: General appearance: Present: A&O X 3, no acute distress - Head Head exam: Present: normocephalic - Eye Eye exam: Present: normal appearance - ENT ENT exam: Present: mucous membranes moist - Respiratory Respiratory exam: Present: CTAB. Absent: accessory muscle use, rales, rhonchi, wheezes - Cardiovascular Cardiovascular exam: Present: RRR, +S1, +S2. Absent: diastolic murmur, gallop, rubs, systolic murmur - GI/Abdominal GI/Abdominal exam: Present: normal bowel sounds, soft, no peritoneal signs. Absent: distended, tenderness - Extremities Exam Extremities exam: Absent: pedal edema - Neurological Exam Neurological exam: Present: alert, oriented X3, no focal deficits. Absent: altered - Psychiatric Psychiatric exam: -normal mood Skin exam: -normal color - Assessment and Plan (1) Closed trimalleolar fracture of right ankle Current Visit: Yes Status: Acute Assessment and plan: Patient was taken to [facility] ER where she was found to have right trimalleolar ankle fracture/dislocation and was subsequently transferred here for surgical management. Surgery team has assessed the patient with recommendations to take patient to the OR today. Qualifiers: Encounter type: initial encounter Qualified Code(s): S82.851A - Displaced trimalleolar fracture of right lower leg, initial encounter for closed fracture (2) HTN (hypertension) Current Visit: No Status: Chronic Assessment and plan: Continue home medications Qualifiers: Hypertension type: essential hypertension Qualified Code(s): I10 - Essential (primary) hypertension (3) Hypothyroid Current Visit: No Status: Chronic Assessment and plan: Continue home medications Qualifiers: Hypothyroidism type: unspecified Qualified Code(s): E03.9 - Hypothyroidism, unspecified (4) Insulin dependent diabetes mellitus Current Visit: No Status: Chronic Assessment and plan: Continue home medications (5) CHF (congestive heart failure) Current Visit: Yes Status: Acute Assessment and plan: Euvolemic; continue home medications Qualifiers: Heart failure chronicity: chronic Qualified Code(s): I50.9 - Heart failure, unspecified - Time Spent With Patient Total time spent is greater than 50% in coordination of care (as documented) at patient's floor/unit and/or counseling patient:
[2019-02-28] MEDS ORDERED: Naloxone 0.4 MG/ML INJ IVP PRN ×2 (19:14→19:16)
--- NOTE | 2019-02-28 20:10 | Anesthesia Evaluation PreOp ---
Date of Encounter: 02/28/19 Time of Encounter: 20:08 - Past History Planned Operation: ORIF Right Ankle Cardiac History: CHF, HTN Pulmonary History: Denies Any Significant HX DIGITAL PRODUCT MANAGER History: Denies Any Significant HX, Other (Anxiety) Other Medical History: Diabetes Type II (Diabetic Neuropathy), Thyroid (Hypo) Anesthesia History: No Prior Anesthetic Complications, Past Anesthesia (c/s, LEEP x 2) : No Test: Negative (02/28/2019) Alcohol Use: none Drug use: none Medications and Allergies RX: Carvedilol [Coreg] 25 mg PO BID 03/29/16 [History] Lyrica 100 mg PO QAM 01/01/17 [History] RX: DULoxetine [Cymbalta] 30 mg PO DAILY 08/11/17 [History] RX: Levothyroxine [Synthroid] 75 mcg PO DAILY 08/11/17 [History] Furosemide [Lasix] 40 mg PO BID #30 tablet 08/12/17 [Rx] Aspirin [Lo-Dose Aspirin EC] 81 mg PO DAILY 02/28/19 [History] Entresto 97 mg-103 mg Tablet 02/28/19 [History] HumuLIN R U-500 BID 02/28/19 [History] Pregabalin [Lyrica] 200 mg PO QPM 02/28/19 [History] Trulicity QWEEK 02/28/19 [History] Allergy/AdvReac Type Severity Reaction Status Date / Time No Known Allergies Allergy Verified 06/22/16 08:56 - Meds/Allergy Pre-op Review Medications Reviewed: Yes Allergies Reviewed: Yes Beta Blockers on Current Med List: Yes If Beta Blockers taken, Date/Time (Last Dose taken): 18:23 02/28/2019 Anesthesia Results - Labs Laboratory Tests 08/11/17 10/04/18 10/04/18 18:09 17:05 17:05 WBC 7.5 Hgb 13.1 Hct 40.7 Plt Count 211 INR 1.1 Sodium 136 Potassium 4.1 Chloride 101 Carbon Dioxide 21 L BUN 37 H Creatinine 1.12 - Imaging EKG: report reviewed (SINUS RHYTHM PATTERN CONSISTENT WITH PULMONARY DISEASE LEFT ANTERIOR FASCICULAR BLOCK) Additional studies: Echocardiogram Name: Ally Tea Woo Date of Study: 03/31/2018 EV/EV echocardiogram Impressions: Unable to accurately determine the LVEF. Grossly, it appears low normal. Recommend a repeat study with [facility] at [facility]. Mildly dilated left ventricle. Indeterminate diastolic function. Normal right ventricular structure and function. No evidence of pulmonary hypertension. No significant valvular dysfunction. 07/03 Stress No ischemia EF - 57% June 2016. Echo shows EF 50%, moderate diastolic dysfunction, no significant valvular dysfunction. Anesthesia Exam Vital Signs/O2 Sat, Most Current Temp Pulse Resp BP Pulse Ox 97.9 F 63 17 130/79 96 02/28/19 18:40 02/28/19 18:40 02/28/19 18:40 02/28/19 18:40 02/28/19 18:40 Blood glucose: 142 NPO (# of Hours): > 8 hrs Pain Scale: 0 Pain Scale Used: Numeric (1 - 10) - HEENT Pupil (Motor): Pupils equal, EOMI Mallampati: II Teeth: Normal Oral Opening: Greater than 3 - DIGITAL PRODUCT MANAGER LOC: Oriented DIGITAL PRODUCT MANAGER Motor: Normal RUE, Normal LUE, Normal RLE, Normal LLE, Normal Face DIGITAL PRODUCT MANAGER Sensory: Normal: RUE, LUE, RLE, LLE, Face - Cardiac Rhythm: Regular Murmur: None JVD: No Carotid Bruit: No - Pulmonary Breath Sounds: bilateral Clear Respiratory Effort: Symmetrical Anesthesia Assess/Plan ASA Score: 3 Level of consciousness: Cooperative Anesthetic Plan: General Autologous Blood: Yes Monitoring Plan: Standard Monitors Recovery Plan: PACU
[2019-02-28] MEDS ORDERED: *HR* OxyCODONE/APAP 5/325 TABLET PO PRN (21:36)
[2019-02-28] MEDS ORDERED: *HR* Propofol 200 MG/20 ML VIAL IVP ONE (23:11)
[2019-02-28] MEDS ORDERED: *HR* FentaNYL (PF) 100 MCG/2 ML VIAL ONE (23:11)
[2019-02-28] MEDS ORDERED: Bupivacaine/EPI 1:200k 0.25%PF 30 ML VIAL ONE (23:14)
[2019-02-28] MEDS ORDERED: *HR* Labetalol 20 MG/4 ML SYRINGE IVP PRN (23:40)
[2019-02-28] MEDS ORDERED: *HR* Promethazine 25 MG/ML VIAL IVP PRN (23:40)
[2019-02-28] MEDS ORDERED: *HR* OxyCODONE Immed Rel 5 MG TABLET PO PRN (23:40)
[2019-02-28] MEDS ORDERED: Ondansetron 4 MG/2 ML VIAL IVP ONE (23:40)
[2019-02-28] MEDS ORDERED: Albuterol 2.5 MG/3 ML NEBULIZER IH ONE (23:40)
[2019-02-28] MEDS ORDERED: *HR* Morphine 2 MG/ML SYRINGE IVP PRN (23:40)
[2019-02-28] MEDS ORDERED: ceFAZolin 2,000 MG in Water for inj. (sterile) 20 ML IVP ONE (23:48)
[2019-03-01] MEDS ORDERED: *HR* Rocuronium Bromide 50 MG/5 ML VIAL ONE (00:02)
[2019-03-01] MEDS ORDERED: Dexamethasone 4 MG/ML VIAL ONE (00:02)
[2019-03-01] MEDS ORDERED: Ondansetron 4 MG/2 ML VIAL ONE (00:02)
[2019-03-01] MEDS ORDERED: *HR* Succinylcholine 200 MG/10 ML VIAL IVP ONE (00:02)
[2019-03-01] MEDS ORDERED: Lidocaine -MPF 2% 2 ML VIAL ONE (00:02)
[2019-03-01] MEDS ORDERED: ceFAZolin 2,000 MG in 0.9 % Sodium Chloride 100 ML IVP ONE (02:00)
--- NOTE | 2019-03-01 02:04 | Anesthesia Evaluation Post Op ---
Date of Encounter: 03/01/19 Time of Encounter: 02:18 - Vital Signs Vital Signs: Vital Signs/O2 Sat, Most Current Temp Pulse Resp BP Pulse Ox 98.2 F 67 14 129/73 92 03/01/19 01:54 03/01/19 02:14 03/01/19 02:14 03/01/19 02:14 03/01/19 02:14 - Lungs Lungs: Clear Ascult./Percussion - Airway Airway: Non-obstructed - Cardiovascular Regular Rate - Mental Status Mental Status: Alert & Oriented, Answers Appropriately - Pain Pain Scale: 0 Pain Scale used: Numeric (1 - 10) - Nausea Vomiting Nausea Vomiting: Not Present - Hydration Hydration: Ice chips, Has not voided - Discharge PostOp Status: Transfer Patient to floor
--- NOTE | 2019-03-01 02:08 | Operative Note ---
Date of procedure: 03/01/19 Pre-op diagnosis: right ankle fracture/dislocation Post-op diagnosis: same Procedure: ORIF right trimalleolar ankle fracture Implants: [id number] locking plate/screws, 4.0mm cannulated screw Complications: none Anesthesia: GETA Local Anesthetics: 0.25% Sensorcaine HCL with Epinephrine 1:200,000 SubQ (cc) Surgeon: Bassam Chaves Was there an purchasing assistant present: No Estimated blood loss (cc): 5 Specimen: right 5th toe culture Condition: stable Disposition: PACU Procedure in Detail: Indications: 48-year-old uncontrolled diabetic female with neuropathy sustained a right trimalleolar ankle fracture dislocation with tenting of the medial skin. Nature of procedure, risks versus benefits potential complications and consequences of surgery and her condition discussed at length. Discussed with patient is imperative that she controls her blood sugar and adheres to nonweightbearing instructions to the right lower extremity. Discussed that she is at increased risk for complications with her high blood sugar and not following directions. It was explained to the patient that she could lose her leg. All of her questions have been answered and informed consent was signed. Patient was taken from the preoperative holding area and operating room placed on the operating room table in the supine position. The right lower extremity was scrubbed prepped and draped in the usual sterile fashion. The right ankle had 0.25% Marcaine with epinephrine injected around it. Patient was also given a common peroneal posterior tibial nerve block. A thigh tourniquet was applied and inflated to 300 mmHg. The following procedure then began. ORIF right trimalleolar ankle fracture. Attention was directed to the lateral aspect of the patient's right ankle were #15 blade was used to make a skin incision approximately 8 cm in length over the fibula. The skin incision was deepened through blunt dissection, all traversing veins were divided and ligated using the Bovie or Vicryl ties as deemed appropriate. Care was taken to avoid neurovascular tendon structures. The periosteal layer was incised and freed from the fibula exposing the fracture zone of the lateral malleolus which was obliquely oriented. Hematoma was evacuated from the fracture zone. The ankle was held in a reduced position with the talus under the tibia and well aligned and the ankle mortise. C-arm was utilized to confirm reduction of the talus and the ankle mortise and that the fibula was out to length. Reduction clamps were used to stabilize the fracture zone and an aj0nwidy 3.5 cortical lag screw was thrown using standard technique. Excellent compression was noted across the fracture zone clinically. Using standard technique an [id number] locking plate was applied using 3.5 mm locking and nonlocking screws and 2.7mm locking screws to the lateral aspect of the fibula bridging the fracture zone. Given her profound neuropathy 3 screws were thrown through the plate [id number]. The fibula was out to length. The site was flushed with saline irrigation. Stability of the fracture zone was assessed and the fracture zone had good apposition and the ankle was noted to be in good position and alignment on the C-arm. Attention was then directed medially where a #15 blade was used to make a skin incision over the medial malleolus. Skin incision was deepened through blunt dissection care was taken to avoid neurovascular tendinous structures. Hematoma was evacuated from the fracture zone and periosteum removed from the fracture zone. The medial malleolar fracture fragment was then reduced with a reduction clamp and pinned temporarily. C-arm was utilized to confirm position and alignment of the k-wire traversing the fracture zone. Fracture was noted to be reduced haydee 4.0mm partially threaded cannulated [id number] screw was thrown across the fracture zone. No increase in medial clear space was noted and good tib-fib overlap was present. Reduction of the fracture zone was noted. The posterior malleolar fragment was small and the decision was made not to fixate the fragment. C-arm was utilized to confirm position and alignment of the fracture zones. There was no increased and medial clear space there was good tib-fib overlap and the talus was aligned in the ankle mortise and the fibula was out to length. Periosteal and deep layers were closed with 0 Vicryl and subcutaneous tissues were closed with 2-0 Vicryl. The skin was reapproximated with toby laterally. Postoperative bandaging included Xeroform, Adpatic (over site where skin had been tented), 4 x 4 gauze, Kerlix and an adequately padded posterior splint. The patient tolerated the anesthesia and the procedure well and was escorted to the recovery room with vital signs stable and vascular status intact to the right foot noted by instant capillary refill time to all digits of the right foot. Elevation. Strict instructions given for non-weightbearing to the right lower extremity. She will return to the floor after being monitored in the PACU. Of note at the conclusion of the procedure while applying the splint a blister was noted on the dorsolateral aspect of the 5th digit which did contain purulent drainage. A culture was obtained. toe was dressed with a sterile dressing.
[2019-03-01] MEDS ORDERED: Naloxone 0.4 MG/ML INJ IVP PRN (02:26)
[2019-03-01] MEDS ORDERED: *HR* Promethazine 25 MG/ML VIAL IVP PRN (02:26)
[2019-03-01] MEDS: *HR* OxyCODONE/APAP 5/325 TABLET PO PRN ×2 (03:16→08:07)
[2019-03-01] MEDS ORDERED: Dextrose Gel 15 GM/37.5 ML TUBE PO PRN ×2 (03:25)
[2019-03-01] MEDS ORDERED: *HR* Dextrose 50 % in Water (Syg) 50 ML SYRINGE IVP PRN (03:25)
[2019-03-01] MEDS ORDERED: D5% in Water 1,000 ML IVC PRN (03:25)
[2019-03-01] MEDS: Pregabalin 50 MG CAPSULE PO SCH ×2 (03:49→17:39)
[2019-03-01] MEDS: Insulin LISPRO 300 UNITS/3 ML VIAL SQ SCH ×5 (03:50→20:43)
[2019-03-01] MEDS: *HR* Heparin 5,000 UNIT/ML VIAL SQ SCH ×3 (06:14→21:44)
[2019-03-01 07:53] LABS: Basophils % 0.2 %; Hematocrit 31.4 % (35.3-44.9); Hemoglobin 9.9 g/dL (11.5-15.4); Immature Granulocytes % 0.5 % (0-4); Lymphocytes # 0.7 K/mcL (0.6-4.6); Lymphocytes % 11.6 %; Mean Corpuscular HGB Conc 31.5 g/dL (31.6-35.5); Mean Corpuscular Volume 85.8 fL (83.0-100.0); Monocytes # 0.2 K/mcL (0.0-1.3); Monocytes % 3.6 %; Neutrophils # 5.2 K/mcL (1.6-8.9); Platelet Count 122 K/mcL (140-400); Red Blood Count 3.66 M/mcL (3.82-4.97); Red Cell Distribution Width 13.8 % (11.5-14.5); Segmented Neutrophils % 84.1 %
[2019-03-01] MEDS ORDERED: ceFAZolin 2,000 MG in D5% in Water 100 ML IVPB SCH (08:00)
[2019-03-01] MEDS: ceFAZolin 2,000 MG in 0.9 % Sodium Chloride 100 ML IVPB SCH ×2 (08:06→16:17)
[2019-03-01 09:00] LABS: BUN/Creatinine Ratio 33 (6-26); Blood Urea Nitrogen 38 mg/dL (6-20); Calcium 8.6 mg/dL (8.6-10.3); Carbon Dioxide 25 mEq/L (23-29); Chloride 101 mEq/L (98-107); Glucose 377 mg/dL (70-105); Osmolality,Calculated 303 (280-300); Potassium 4.7 mEq/L (3.5-5.1); Sodium 134 mEq/L (136-145); eGFR For Non-African Americans 50 (> 60)
--- NOTE | 2019-03-01 09:04 | Internal Med Progress Note ---
Hospitalist Progress Note - Encounter Date of Encounter: 03/01/19 Time of Encounter: 09:00 - Subjective Interval History: Had ankle ORIF ovenright - Exam Vitals: Temp Pulse Resp BP Pulse Ox 97.5 F L 66 16 141/70 95 03/01/19 07:00 03/01/19 07:00 03/01/19 07:00 03/01/19 07:00 03/01/19 07:00 Exam: General appearance: Present: A&O X 3, no acute distress Head exam: Present: normocephalic Respiratory exam: Present: CTAB. Absent: accessory muscle use, rales, rhonchi, wheezes Cardiovascular exam: Present: RRR, +S1, +S2. Absent: diastolic murmur, gallop, rubs, systolic murmur GI/Abdominal exam: Soft, NT, ND, +BS Extremities exam: Ankle boot in place Neurological exam: Present: alert, oriented X3, no focal deficits. - Assessment and Plan (1) Closed trimalleolar fracture of right ankle Current Visit: Yes Status: Acute Assessment and Plan: Patient was taken to [facility] ER where she was found to have right trimalleolar ankle fracture/dislocation and was subsequently transferred here for surgical management. Seen by podiatry and had ORIF done in last 24hrs . PT on board and plan for discharge to rehab [facility] for DVT prophylaxis (2) HTN (hypertension) Current Visit: Yes Status: Chronic Assessment and Plan: Continue home medications (3) Hypothyroid Current Visit: Yes Status: Chronic Assessment and Plan: Continue levothyroxine (4) Insulin dependent diabetes mellitus Current Visit: Yes Status: Chronic Assessment and Plan: Patient has poor compliance with diet and insulin use Continue short and long acting insulin. Monitor fingersticks (5) CHF (congestive heart failure) Current Visit: Yes Status: Acute Assessment and Plan: Euvolemic; continue home medications. No acute exacerbation DVT Prophylaxis: Heparin sc q 8 - Time Spent with Patient Total time spent is greater than 50% in coordination of care (as documented) at patient's floor/unit and/or counseling patient: Internal Medicine: Result - Labs CBC & Chem 7: 03/01/19 07:24 03/01/19 07:24 Labs: Short CBC 03/01/19 Range/Units 07:24 WBC 6.1 (4.3-11.1) K/mcL Hgb 9.9 L (11.5-15.4) g/dL Hct 31.4 L (35.3-44.9) % Plt Count 122 L (140-400) K/mcL Neutrophils # 5.2 (1.6-8.9) K/mcL BMP 03/01/19 07:24 Sodium 134 L Potassium 4.7 Chloride 101 Carbon Dioxide 25 BUN 38 H Creatinine 1.16 Glucose 377 H Calcium 8.6 - Impressions Impressions Fluoroscopy 03/01/19 00:00 IMPRESSION: Right ankle open reduction and internal fixation with fluoroscopic guidance and spot images as above. D/ / Sancho Brady MD / Sancho Brady MD Interpreting Provider: Sancho Brady MD Consult Discharge Plan - Plan Referrals: Tracy Rizzo, BR[employer] HEAD MAKER [Primary Care Provider] - (1) Closed trimalleolar fracture of right ankle Qualifiers: Encounter type: subsequent encounter Fracture healing: with routine healing Qualified Code(s): S82.851D - Displaced trimalleolar fracture of right lower leg, subsequent encounter for closed fracture with routine healing (2) HTN (hypertension) Qualifiers: Hypertension type: essential hypertension Qualified Code(s): I10 - Essential (primary) hypertension (3) Hypothyroid Qualifiers: Hypothyroidism type: unspecified Qualified Code(s): E03.9 - Hypothyroidism, unspecified (5) CHF (congestive heart failure) Qualifiers: Heart failure chronicity: chronic
--- NOTE | 2019-03-01 09:46 | Podiatry Progress Note ---
Date of Encounter: 03/01/19 Time of Encounter: 09:42 - Assessment and Plan (1) Closed trimalleolar fracture of right ankle Current Visit: Yes Status: Acute 1. Patient progressing well POD 1 s/p ORIF right ankle fracture. Continue NWB and keep dressing/splint intact. Do not get the dressing wet. Rest and elevation of the limb above the level of the heart recommended. 2. Will need PT/OT evaluation prior to discharge. She prefers to use the walker and has a knee scooter at home. 3. Follow up with Podiatry 1 week after discharge. 4. Xarelto 10mg daily for 21 days at discharge for DVT prophylaxis. Qualifiers: Encounter type: subsequent encounter Fracture healing: with routine healing Qualified Code(s): S82.851D - Displaced trimalleolar fracture of right lower leg, subsequent encounter for closed fracture with routine healing Subjective Principal diagnosis: s/p ORIF right ankle fracture Interval history: Patient progressing well POD 1 s/p ORIF right trimalleolar ankle fracture performed by Dr. Chaves. She denies pain. Dressing and splint clean, dry, intact. She has foot in dependent position at bedside. 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 She states that she has been NWB and using walker to get to the bathroom. She denies n/v/f/c, chest pain, SOB, calf pain. Objective - Vital Signs Vital Signs: Vital Signs Temp Pulse Resp BP Pulse Ox 03/01/19 07:00 97.5 F L 66 16 141/70 95 03/01/19 06:09 98.2 F 64 14 131/71 96 03/01/19 04:55 98.4 F 70 16 112/72 96 03/01/19 03:47 98.2 F 70 14 123/67 96 03/01/19 03:10 98.2 F 68 16 136/81 96 03/01/19 02:48 84 03/01/19 02:37 97.7 F 79 14 128/85 94 03/01/19 02:24 98.1 F 67 16 137/77 92 03/01/19 02:14 67 14 129/73 92 03/01/19 02:04 67 12 133/83 92 03/01/19 01:54 98.2 F 71 12 132/76 93 02/28/19 18:40 97.9 F 63 17 130/79 96 02/28/19 17:26 97.7 F 68 16 117/70 97 Intake and Output 02/28/19 03/01/19 03/01/19 23:59 07:59 15:59 Intake Total Output Total 200 / 200 Balance -200 / -200 Intake: IV Fluids Ancef 2,000 MG In Water for inj . (sterile) 20 ML @ 200 mls/hr IVP PREOP ONE Rx#:[id number] Output: Urine 200 / 200 Estimated Blood Loss Other: # Voids 1 Weight 124 kg 125.6 kg Blood Glucose* 142 271 318 Patient Weight 03/01/19 23:59 Weight 125.6 kg - Exam Exam: Alert, oriented x3, no acute distress. Vascular: Capillary refill less than 3 seconds to digits of right foot. Dermatology: No streaking redness of the foot or leg. No strikethrough of dressing. Musculoskeletal: No pain with manual compression of calf. Able to actively move all toes of right foot. Neuro: Sensations diminished to toes of right foot. - Lab Result Diagrams: 03/01/19 07:24 03/01/19 07:24 Labs: Abnormal lab results RBC 3.66 M/mcL (3.82-4.97) L 03/01/19 07:24 Hgb 9.9 g/dL (11.5-15.4) L 03/01/19 07:24 Hct 31.4 % (35.3-44.9) L 03/01/19 07:24 MCH 27.0 pg (28.0-33.3) L 03/01/19 07:24 MCHC 31.5 g/dL (31.6-35.5) L 03/01/19 07:24 Plt Count 122 K/mcL (140-400) L 03/01/19 07:24 MPV 13.0 fL (9.4-12.4) H 03/01/19 07:24 Sodium 134 mEq/L (136-145) L 03/01/19 07:24 BUN 38 mg/dL (6-20) H 03/01/19 07:24 Est GFR (Non-Af Amer) 50 (> 60) L 03/01/19 07:24 BUN/Creatinine Ratio 33 (6-26) H 03/01/19 07:24 Glucose 377 mg/dL (70-105) H 03/01/19 07:24 POC Glucose 318 mg/dL (70-99) H 03/01/19 08:01 Calculated Osmolality 303 (280-300) H 03/01/19 07:24 Microbiology, Last 48 Hours 03/01/19 01:33 Wound Culture - Preliminary Right Fifth Toe Culture is incubating. 03/01/19 01:33 Anaerobic Culture - Preliminary Right Fifth Toe Culture is incubating. Consult Discharge Plan - Plan Referrals: Tracy Rizzo, BACK ORDER CLERK [Primary Care Provider] -
[2019-03-01] MEDS: *HR* OxyCODONE/APAP 10/325 TABLET PO PRN ×2 (12:13→18:46)
[2019-03-01] MEDS ORDERED: Insulin LISPRO 300 UNITS/3 ML VIAL SQ ONE ×2 (14:17→18:39)
[2019-03-01 19:20] LABS: Calcium 8.7 mg/dL (8.6-10.3); Potassium 4.3 mEq/L (3.5-5.1)
[2019-03-01] MEDS: Insulin DETEMIR 100 UNIT/ML X5UNITS SQ SCH (20:43)
[2019-03-01] MEDS: Doxycycline 100 MG CAPSULE PO SCH (20:43)
[2019-03-01] MEDS: levoFLOXacin 750 MG TABLET PO SCH (20:43)
[2019-03-01] MEDS ORDERED: Insulin DETEMIR 100 UNIT/ML X5UNITS SQ SCH (21:00)
[2019-03-01] MEDS: *HR* HYDROcodone/Acet 5/325 mg TABLET PO PRN (22:29)
[2019-03-02] MEDS: ceFAZolin 2,000 MG in 0.9 % Sodium Chloride 100 ML IVPB SCH ×2 (00:24→07:40)
[2019-03-02] MEDS: *HR* Heparin 5,000 UNIT/ML VIAL SQ SCH ×3 (05:01→21:08)
[2019-03-02] MEDS: *HR* OxyCODONE/APAP 10/325 TABLET PO PRN ×2 (05:01→11:40)
[2019-03-02 07:13] LABS: Basophils % 0.2 %; Eosinophils # 0.1 K/mcL (0.0-0.6); Eosinophils % 0.9 %; Hematocrit 27.3 % (35.3-44.9); Hemoglobin 8.8 g/dL (11.5-15.4); Immature Granulocytes % 0.2 % (0-4); Lymphocytes # 1.7 K/mcL (0.6-4.6); Lymphocytes % 31.1 %; Mean Corpuscular HGB Conc 32.2 g/dL (31.6-35.5); Mean Corpuscular Hemoglobin 26.9 pg (28.0-33.3); Mean Corpuscular Volume 83.5 fL (83.0-100.0); Monocytes # 0.6 K/mcL (0.0-1.3); Monocytes % 11.3 %; Neutrophils # 3.1 K/mcL (1.6-8.9); Platelet Count 110 K/mcL (140-400); Red Blood Count 3.27 M/mcL (3.82-4.97); Red Cell Distribution Width 13.9 % (11.5-14.5); Segmented Neutrophils % 56.3 %
[2019-03-02 07:33] LABS: BUN/Creatinine Ratio 32 (6-26); Blood Urea Nitrogen 33 mg/dL (6-20); Calcium 8.4 mg/dL (8.6-10.3); Carbon Dioxide 26 mEq/L (23-29); Chloride 103 mEq/L (98-107); Glucose 177 mg/dL (70-105); Magnesium 1.7 mg/dL (1.6-2.6); Osmolality,Calculated 292 (280-300); Phosphorous 3.1 mg/dL (2.7-4.5); Potassium 3.9 mEq/L (3.5-5.1); Sodium 135 mEq/L (136-145); eGFR For Non-African Americans 57 (> 60)
[2019-03-02] MEDS: Doxycycline 100 MG CAPSULE PO SCH ×2 (07:37→21:07)
[2019-03-02] MEDS: Insulin LISPRO 300 UNITS/3 ML VIAL SQ SCH ×4 (07:39→21:07)
[2019-03-02 08:28] LABS: Estimated Average Glucose 318 mg/dl; Hemoglobin A1C 12.7 %
--- NOTE | 2019-03-02 09:11 | Internal Med Progress Note ---
Hospitalist Progress Note - Encounter Date of Encounter: 03/02/19 Time of Encounter: 09:00 - Subjective Interval History: No acute events overnight - Exam Vitals: Temp Pulse Resp BP Pulse Ox 97.4 F L 56 16 116/74 96 03/02/19 07:15 03/02/19 07:15 03/02/19 07:15 03/02/19 07:15 03/02/19 07:15 Exam: General appearance: Present: A&O X 3, no acute distress Head exam: Present: normocephalic Respiratory exam: Present: CTAB. Absent: accessory muscle use, rales, rhonchi, wheezes Cardiovascular exam: Present: RRR, +S1, +S2. Absent: diastolic murmur, gallop, rubs, systolic murmur GI/Abdominal exam: Soft, NT, ND, +BS Extremities exam: Ankle boot in place Neurological exam: Present: alert, oriented X3, no focal deficits. - Assessment and Plan (1) Closed trimalleolar fracture of right ankle Current Visit: Yes Status: Acute Assessment and Plan: Patient was taken to [facility] ER where she was found to have right trimalleolar ankle fracture/dislocation and was subsequently transferred here for surgical management. Seen by podiatry and had ORIF done in last 24hrs . PT on board. Patient refusing rehab and wants to go home with home health Has multiple home needs include ramp that will need to be setup prior to d/c. Await clearance from s/w Brendanrelto for DVT prophylaxis (2) HTN (hypertension) Current Visit: Yes Status: Chronic Assessment and Plan: Continue home medications (3) Hypothyroid Current Visit: Yes Status: Chronic Assessment and Plan: Continue levothyroxine (4) Insulin dependent diabetes mellitus Current Visit: Yes Status: Chronic Assessment and Plan: Patient has poor compliance with diet and insulin use Continue short and long acting insulin. Monitor fingersticks (5) CHF (congestive heart failure) Current Visit: Yes Status: Acute Assessment and Plan: Euvolemic; continue home medications. No acute exacerbation DVT Prophylaxis: Heparin sc q 8 - Time Spent with Patient Total time spent is greater than 50% in coordination of care (as documented) at patient's floor/unit and/or counseling patient: Internal Medicine: Result - Labs CBC & Chem 7: 03/02/19 05:53 03/02/19 05:53 Labs: Short CBC 03/02/19 Range/Units 05:53 WBC 5.5 (4.3-11.1) K/mcL Hgb 8.8 L (11.5-15.4) g/dL Hct 27.3 L (35.3-44.9) % Plt Count 110 L (140-400) K/mcL Neutrophils # 3.1 (1.6-8.9) K/mcL BMP 03/01/19 03/02/19 18:49 05:53 Sodium 131 L 135 L Potassium 4.3 3.9 Chloride 97 L 103 Carbon Dioxide 26 26 BUN 38 H 33 H Creatinine 1.27 H 1.04 Glucose 470 H 177 H Calcium 8.7 8.4 L Consult Discharge Plan - Plan Referrals: Tracy Rizzo, SPLICING TECHNICIAN [Primary Care Provider] - (1) Closed trimalleolar fracture of right ankle Qualifiers: Qualified Code(s): S82.851D - Displaced trimalleolar fracture of right lower leg, subsequent encounter for closed fracture with routine healing (2) HTN (hypertension) Qualifiers: Qualified Code(s): I10 - Essential (primary) hypertension (3) Hypothyroid Qualifiers: Qualified Code(s): E03.9 - Hypothyroidism, unspecified
--- NOTE | 2019-03-02 15:48 | Podiatry Progress Note ---
Date of Encounter: 03/02/19 Time of Encounter: 15:46 - Assessment and Plan (1) Closed trimalleolar fracture of right ankle Current Visit: Yes Status: Acute Assessment: S/P ORIF right trimalleolar ankle fracture on 03/[address] Chaves Ecchymosis noted to medial aspect of right lower extremity No tenting noted, minimal erythema and edema noted WBC 5.5 WC pending right 5th toe Plan: Removed splint Cleansed incisions and right 5th toe with 0.9 NS Painted right 5th toe with betadine Covered incisions with adaptic, 4x4 dry gauze, and kerlix Secured RLE with cast padding, splint, and DOUG bandage Ok to D/C once evaluated by PT/OT and ok with hard candy spinner. Patient to follow up in office in 1 week. Please make appointment prior to d/c. Qualifiers: Encounter type: subsequent encounter Fracture healing: with routine healing Qualified Code(s): S82.851D - Displaced trimalleolar fracture of right lower leg, subsequent encounter for closed fracture with routine healing Subjective Principal diagnosis: s/p ORIF right ankle fracture Interval history: Patient awake sitting in chair. Transfers to bed with minimal assistance. Denies any fevers, chills, nausea, vomiting, or diarrhea. Denies any calf pain, chest pain, or shortness of breath. States she was evaluated by PT/OT but can not go home d/t no way to get home at this time. Denies any overnight events. No questions or concerns at this time. Objective - Vital Signs Vital Signs: Vital Signs Temp Pulse Resp BP Pulse Ox 03/02/19 15:11 97.8 F 63 18 121/71 94 03/02/19 11:15 97.5 F L 65 18 145/91 99 03/02/19 07:15 97.4 F L 56 16 116/74 96 03/02/19 05:16 97.6 F 63 20 114/66 93 03/01/19 21:47 98.4 F 71 16 126/80 94 03/01/19 18:51 97.6 F 71 17 135/81 96 03/01/19 16:05 97.8 F 65 16 163/82 93 Intake and Output 03/01/19 03/02/19 03/02/19 23:59 07:59 15:59 Intake Total 100 / 100 100 / 100 100 / 100 Output Total 800 / 800 Balance 100 / 100 -700 / -700 100 / 100 Intake: IV Fluids 100 / 100 100 / 100 100 / 100 Ancef 2,000 MG In 0.9 % Sodium 100 / 100 100 / 100 100 / 100 Chloride 100 ML @ 200 mls/hr IVPB Q8HR VITO Rx#:[id number] Oral 0 / 0 Output: Urine 800 / 800 Other: Meal Lunch Percent of Meal Consumed 90% # Voids 1 1 Blood Glucose* 358 146 123 - Exam Exam: Constitiutional: Alert and oriented x 3. Well nourished. No acute distress noted Vascular: 2/4 DP/PT RLE, CFT <3 sec to all digits RLE, warm to warm from tibia to toes RLE, no calf pain with squeeze RLE Neurologic: Diminished sensation to touch, normal plantar response Dermatologic: Incision noted to right lateral mal with toby noted. Well approximated, minimal erythema noted, expected postoperatively. Incision noted to right medial mal with toby noted. Ecchymosis noted above incision. No tenting noted. Minimal erythema noted. Moderate edema noted 2/4 to RLE. Stable diabetic ulcer grade 1 noted to 2nd met head, plantar aspect. Right 5th digit with open bullae noted. No drainage noted. No foul odor noted. No streaking noted. Musculoskeletal: 3/5 muscle strength and normal tone RLE. - Lab Result Diagrams: 03/02/19 05:53 03/02/19 05:53 Labs: Abnormal lab results RBC 3.27 M/mcL (3.82-4.97) L 03/02/19 05:53 Hgb 8.8 g/dL (11.5-15.4) L 03/02/19 05:53 Hct 27.3 % (35.3-44.9) L 03/02/19 05:53 MCH 26.9 pg (28.0-33.3) L 03/02/19 05:53 Plt Count 110 K/mcL (140-400) L 03/02/19 05:53 MPV 13.0 fL (9.4-12.4) H 03/02/19 05:53 Sodium 135 mEq/L (136-145) L 03/02/19 05:53 BUN 33 mg/dL (6-20) H 03/02/19 05:53 Est GFR (Non-Af Amer) 57 (> 60) L 03/02/19 05:53 BUN/Creatinine Ratio 32 (6-26) H 03/02/19 05:53 Glucose 177 mg/dL (70-105) H 03/02/19 05:53 POC Glucose 146 mg/dL (70-99) H 03/02/19 07:18 Hemoglobin A1c 12.7 % (-5.6) H 03/02/19 05:53 Calcium 8.4 mg/dL (8.6-10.3) L 03/02/19 05:53 Microbiology, Last 48 Hours 03/01/19 01:33 Wound Culture - Final Right Fifth Toe Strep agalactiae - (Group B) 03/01/19 01:33 Anaerobic Culture - Preliminary Right Fifth Toe Culture is incubating. Consult Discharge Plan - Plan Additional Instructions: Follow up in podiatry office in 1 week. Please make appointment prior to d/c. Referrals: Tracy Rizzo CRIPPLE CUTTER [Primary Care Provider] -
[2019-03-02] MEDS: Pregabalin 50 MG CAPSULE PO SCH (17:43)
[2019-03-02] MEDS ORDERED: levoFLOXacin 750 MG TABLET PO SCH (21:00)
[2019-03-02] MEDS: Insulin DETEMIR 100 UNIT/ML X5UNITS SQ SCH (21:07)
[2019-03-02] MEDS: levoFLOXacin 750 MG TABLET PO SCH (21:07)
[2019-03-03 02:56] LABS: Basophils % 0.2 %; Eosinophils % 0.7 %; Hematocrit 29.4 % (35.3-44.9); Hemoglobin 9.3 g/dL (11.5-15.4); Immature Granulocytes % 0.2 % (0-4); Lymphocytes # 1.8 K/mcL (0.6-4.6); Lymphocytes % 31.2 %; Mean Corpuscular HGB Conc 31.6 g/dL (31.6-35.5); Mean Corpuscular Hemoglobin 26.6 pg (28.0-33.3); Mean Platelet Volume 12.2 fL (9.4-12.4); Monocytes # 0.7 K/mcL (0.0-1.3); Monocytes % 11.6 %; Neutrophils # 3.3 K/mcL (1.6-8.9); Platelet Count 131 K/mcL (140-400); Red Cell Distribution Width 14.1 % (11.5-14.5); Segmented Neutrophils % 56.1 %
[2019-03-03 03:12] LABS: BUN/Creatinine Ratio 27 (6-26); Blood Urea Nitrogen 25 mg/dL (6-20); Calcium 8.8 mg/dL (8.6-10.3); Carbon Dioxide 26 mEq/L (23-29); Chloride 103 mEq/L (98-107); Glucose 108 mg/dL (70-105); Magnesium 1.6 mg/dL (1.6-2.6); Osmolality,Calculated 289 (280-300); Phosphorous 2.6 mg/dL (2.7-4.5); Sodium 137 mEq/L (136-145); eGFR For Non-African Americans > 60 (> 60)
[2019-03-03] MEDS: Nitroglycerin 0.4 MG TAB.SUBL SL PRN ×2 (03:21→03:29)
[2019-03-03] MEDS ORDERED: *HR* Morphine 2 MG/ML SYRINGE IVP ONE (03:34)
[2019-03-03] MEDS ORDERED: Isovue-370 500 ML BOTTLE IVP ONE (04:35)
--- NOTE | 2019-03-03 05:58 | Event Note ---
Date of Encounter: 03/03/19 Time of Encounter: 02:31 Alerted by patient's nurse REYNOLD Garcia that patient had been admitted for ankle fracture. Patient reporting midsternal chest pain rated 7 out of 10 with no radiation. Patient reports heavy pressure in chest and heart pounding. BP 157/99 and HR 73 at the time. Stat EKG ordered which shows sinus rhythm with occasional PVCs. Sublingual nitroglycerin ordered and patient given dose. Stat troponin ordered which was less than 0.03. Nitroglycerin administration, patient still reporting chest pain 7 out of 10. BP 158/84 and heart rate 74 at the time. Nurse instructed to administer second dose of nitroglycerin. Pt. rated CP 3/10 following second SL nitro. Went to see patient immediately who is resting in bed. Due to sudden onset of chest pain and shortness of breath, stat d-dimer ordered returned elevated at 1126. Stat CT of the chest to rule out PE ordered which showed negative study for acute pulmonary embolism. Marked enlargement of the main pulmonary artery suggesting underlying pulmonary hypertension, unchanged. Mild cardiomegaly. Nurse instructed to continue monit oring patient very closely and alert me immediately of any adverse changes.
[2019-03-03] MEDS: *HR* Heparin 5,000 UNIT/ML VIAL SQ SCH ×3 (06:48→22:53)
[2019-03-03] MEDS: Insulin LISPRO 300 UNITS/3 ML VIAL SQ SCH ×4 (07:41→20:56)
[2019-03-03] MEDS: Doxycycline 100 MG CAPSULE PO SCH ×2 (08:44→20:52)
--- NOTE | 2019-03-03 09:10 | Internal Med Progress Note ---
Hospitalist Progress Note - Encounter Date of Encounter: 03/03/19 Time of Encounter: 08:00 - Subjective Interval History: No acute events overnight - Exam Vitals: Temp Pulse Resp BP Pulse Ox 97.6 F 66 16 159/85 96 03/03/19 07:27 03/03/19 07:27 03/03/19 07:27 03/03/19 07:27 03/03/19 07:27 Exam: General appearance: Present: A&O X 3, no acute distress Head exam: Present: normocephalic Respiratory exam: Present: CTAB. Absent: accessory muscle use, rales, rhonchi, wheezes Cardiovascular exam: Present: RRR, +S1, +S2. Absent: diastolic murmur, gallop, rubs, systolic murmur GI/Abdominal exam: Soft, NT, ND, +BS Extremities exam: Ankle boot in place Neurological exam: Present: alert, oriented X3, no focal deficits. - Assessment and Plan (1) Chest pain Current Visit: Yes Status: Acute Assessment and Plan: Patient complained of chest pain overnight. Has risk factors for CAD. Pain was relieved by nitroglycerin Obtain 2d echo and stress test. troponins negative (2) Closed trimalleolar fracture of right ankle Current Visit: Yes Status: Acute Assessment and Plan: Patient was taken to [facility] ER where she was found to have right trimalleolar ankle fracture/dislocation and was subsequently transferred here for surgical management. Seen by podiatry and had ORIF done in last 24hrs . PT on board. Patient refusing rehab and wants to go home with home health Has multiple home needs include ramp that will need to be setup prior to d/c. Await clearance from s/w Yohannes for DVT prophylaxis (3) HTN (hypertension) Current Visit: Yes Status: Chronic Assessment and Plan: Continue home medications (4) Hypothyroid Current Visit: Yes Status: Chronic Assessment and Plan: Continue levothyroxine (5) Insulin dependent diabetes mellitus Current Visit: Yes Status: Chronic Assessment and Plan: Patient has poor compliance with diet and insulin use Continue short and long acting insulin. Monitor fingersticks (6) CHF (congestive heart failure) Current Visit: Yes Status: Acute Assessment and Plan: Euvolemic; continue home medications. No acute exacerbation DVT Prophylaxis: Heparin sc q 8 - Time Spent with Patient Total time spent is greater than 50% in coordination of care (as documented) at patient's floor/unit and/or counseling patient: Internal Medicine: Result - Labs CBC & Chem 7: 03/03/19 02:41 03/03/19 02:41 Labs: Short CBC 03/03/19 Range/Units 02:41 WBC 5.8 (4.3-11.1) K/mcL Hgb 9.3 L (11.5-15.4) g/dL Hct 29.4 L (35.3-44.9) % Plt Count 131 L (140-400) K/mcL Neutrophils # 3.3 (1.6-8.9) K/mcL BMP 03/03/19 02:41 Sodium 137 Potassium 4.0 Chloride 103 Carbon Dioxide 26 BUN 25 H Creatinine 0.92 Glucose 108 H Calcium 8.8 Cardiac Enzymes 03/03/19 Range/Units 02:41 Troponin I < 0.03 (< 0.04) ng/mL - ABG Interpretation ABG results: PT/INR, D-dimer D-Dimer 1126 ng/mLFEU (0-500) H 03/03/19 02:41 - Impressions Impressions Chest CTA 03/03/19 04:35 IMPRESSION: Negative for acute pulmonary embolism. Marked enlargement of the main pulmonary artery suggests underlying pulmonary hypertension, unchanged. Mild cardiomegaly. D/ / Carlos Davis / Carlos Davis Interpreting Provider: Carlos Davis Consult Discharge Plan - Plan Additional Instructions: Follow up in podiatry office in 1 week. Please make appointment prior to d/c. Referrals: Tracy Rizzo, CLINICAL INVESTIGATOR [Primary Care Provider] - (1) Chest pain Qualifiers: Chest pain type: unspecified Qualified Code(s): R07.9 - Chest pain, unspecified (2) Closed trimalleolar fracture of right ankle Qualifiers: Encounter type: subsequent encounter Fracture healing: with routine healing Qualified Code(s): S82.851D - Displaced trimalleolar fracture of right lower leg, subsequent encounter for closed fracture with routine healing (3) HTN (hypertension) Qualifiers: Hypertension type: essential hypertension Qualified Code(s): I10 - Essential (primary) hypertension (4) Hypothyroid Qualifiers: Hypothyroidism type: unspecified Qualified Code(s): E03.9 - Hypothyroidism, unspecified (6) CHF (congestive heart failure) Qualifiers: Heart failure chronicity: chronic
[2019-03-03] MEDS ORDERED: Perflutren Lipid Microsphere 1.3 ML in 0.9 % Sodium Chloride 8.7 ML IVP ONE (11:21)
[2019-03-03] MEDS ORDERED: Perflutren Lipid Microsphere 2 ML VIAL ONE (11:24)
--- NOTE | 2019-03-03 15:11 | Physician Discharge Referral ---
Home Health/Hosp Referral Info Transfer to: Home Health - Diagnosis (1) Closed trimalleolar fracture of right ankle Priority: Primary Status: Acute (2) HTN (hypertension) Priority: Primary Status: Chronic (3) Hypothyroid Priority: Primary Status: Chronic (4) Insulin dependent diabetes mellitus Priority: Primary Status: Chronic (5) CHF (congestive heart failure) Priority: Primary Status: Acute - Respiratory Orders Smoking Cessation: Smoking cessation has been advised. For more information, call the [place] Tobacco Quit Line at 8-003-ZNXC-NOW. - Diet/Nutrition Diet/Nutrition Orders: Cardiac - Activity Activity Orders: Walker - Services Needed Following services are medically necessary services: Nursing, Home Health Aide, Physical Therapy - Transfer Medications Home Medications: Carvedilol [Coreg] 50 mg PO BID 03/29/16 [History] DULoxetine [Cymbalta] 30 mg PO BID 08/11/17 [History] Levothyroxine [Synthroid] 75 mcg PO DAILY 08/11/17 [History] Furosemide [Lasix] 40 mg PO BID #30 tablet 08/12/17 [Rx] Aspirin [Lo-Dose Aspirin EC] 81 mg PO DAILY 02/28/19 [History] Pregabalin [Lyrica] 200 mg PO QPM 02/28/19 [History] Doxycycline 100 mg PO BID 03/01/19 [History] Dulaglutide [Trulicity] 1.5 mg SQ MO 03/01/19 [History] Insulin Regular U-500 [HumuLIN R U-500] 60 unit SQ BID 03/01/19 [History] Levofloxacin [Levaquin] 750 mg PO DAILY 03/01/19 [History] Pregabalin [Lyrica] 100 mg PO QAM 03/01/19 [History] Sacubitril/Valsartan 97/103 mg [Entresto 97 mg-103 mg Tablet] 1 tab PO BID 03/01/19 [History] Spironolactone 25 mg PO QAM 03/02/19 [History] Trazodone HCl 100 mg PO HS PRN 03/02/19 [History] Allergies/Adverse Reactions: Allergy/AdvReac Type Severity Reaction Status Date / Time vancomycin Allergy Severe See Verified 03/02/19 13:23 Comments Certification: Further, I certify that my clinical findings support that this patient is homebound (i.e. absences from home require considerable and taxing effort and are for medical reasons or jewish services or infrequently or short duration when for other reasons) because: Homebound Reason: Patient requires assistance of a person or device to safely leave home Attestation: My signature below is to certify that this patient is under my care and that I, or nurse practitioner, or a physician's acute care assistant working with me, has a [id number] encounter with this patient.
[2019-03-03] MEDS: Pregabalin 50 MG CAPSULE PO SCH (17:01)
[2019-03-03] MEDS: *HR* HYDROcodone/Acet 5/325 mg TABLET PO PRN (17:01)
[2019-03-03] MEDS: levoFLOXacin 750 MG TABLET PO SCH (20:52)
[2019-03-03] MEDS: Insulin DETEMIR 100 UNIT/ML X5UNITS SQ SCH (20:55)
[2019-03-04] MEDS: *HR* OxyCODONE/APAP 5/325 TABLET PO PRN ×3 (01:36→15:34)
[2019-03-04] MEDS: *HR* Heparin 5,000 UNIT/ML VIAL SQ SCH ×3 (04:14→21:29)
[2019-03-04] MEDS ORDERED: Regadenoson 0.4 MG/5 ML SYRINGE IVP ONE (06:24)
[2019-03-04 07:39] LABS: Basophils % 0.3 %; Eosinophils # 0.1 K/mcL (0.0-0.6); Eosinophils % 1.2 %; Hematocrit 30.5 % (35.3-44.9); Hemoglobin 9.5 g/dL (11.5-15.4); Immature Granulocytes % 0.5 % (0-4); Lymphocytes # 1.4 K/mcL (0.6-4.6); Lymphocytes % 24.3 %; Mean Corpuscular HGB Conc 31.1 g/dL (31.6-35.5); Mean Corpuscular Hemoglobin 26.6 pg (28.0-33.3); Mean Corpuscular Volume 85.4 fL (83.0-100.0); Mean Platelet Volume 11.9 fL (9.4-12.4); Monocytes # 0.6 K/mcL (0.0-1.3); Monocytes % 9.9 %; Neutrophils # 3.8 K/mcL (1.6-8.9); Platelet Count 147 K/mcL (140-400); Red Blood Count 3.57 M/mcL (3.82-4.97); Red Cell Distribution Width 13.6 % (11.5-14.5); Segmented Neutrophils % 63.8 %
[2019-03-04] MEDS: Insulin LISPRO 300 UNITS/3 ML VIAL SQ SCH ×4 (07:51→21:28)
[2019-03-04 07:59] LABS: BUN/Creatinine Ratio 19 (6-26); Blood Urea Nitrogen 16 mg/dL (6-20); Calcium 8.9 mg/dL (8.6-10.3); Carbon Dioxide 30 mEq/L (23-29); Chloride 101 mEq/L (98-107); Glucose 117 mg/dL (70-105); Magnesium 1.6 mg/dL (1.6-2.6); Osmolality,Calculated 286 (280-300); Phosphorous 3.5 mg/dL (2.7-4.5); Potassium 3.9 mEq/L (3.5-5.1); Sodium 137 mEq/L (136-145); eGFR For Non-African Americans > 60 (> 60)
[2019-03-04] MEDS: Doxycycline 100 MG CAPSULE PO SCH ×2 (09:07→21:29)
[2019-03-04] MEDS: Ondansetron 4 MG/2 ML VIAL IVP PRN (10:14)
--- NOTE | 2019-03-04 10:17 | Podiatry Progress Note ---
Date of Encounter: 03/04/19 Time of Encounter: 10:14 - Assessment and Plan (1) Closed trimalleolar fracture of right ankle Current Visit: Yes Status: Acute Assessment: S/P ORIF right trimalleolar ankle fracture on 03/[address] Chaves Ecchymosis noted to medial aspect of right lower extremity Fracture blisters noted anteriorly Tenting of right medial aspect of ankle noted. Ecchymosis noted to medial aspect of ankle. WBC 5.9 WC returned group b strep, purulent drainage noted of right 5th toe Plan: NWB RLE XR ordered of right ankle/foot for evaluation NPO at [facility] OR tomorrow for revision of ORIF Removed splint Cleansed incisions and right 5th toe with 0.9 NS Painted right 5th toe with betadine Covered incisions with adaptic, 4x4 dry gauze, and kerlix Secured RLE with cast padding, splint, and DOUG bandage Patient currently on heparin subq, will need transitioned to xarelto prior to d/c Qualifiers: Encounter type: subsequent encounter Fracture healing: with routine healing Qualified Code(s): S82.851D - Displaced trimalleolar fracture of right lower leg, subsequent encounter for closed fracture with routine healing Subjective Principal diagnosis: s/p ORIF right ankle fracture Interval history: Patient awake in bed. Reports when going for stress test she went to transfer and placed weight to E and felt a pop. Reports pain 10/10. States the pain is worse than when she originally fractured ankle. Denies any fevers, chills, vomiting, or diarrhea. Reports nausea. Denies any calf pain, chest pain, or shortness of breath. No questions or concerns at this time. Objective - Vital Signs Vital Signs: Vital Signs Temp Pulse Resp BP Pulse Ox 03/04/19 07:02 98.3 F 62 15 148/91 97 03/03/19 23:18 97.5 F L 67 15 161/83 93 03/03/19 19:38 98.0 F 64 16 151/87 94 03/03/19 15:00 98.6 F 69 14 152/88 96 03/03/19 12:25 98.6 F 65 14 153/86 96 Intake and Output 03/03/19 03/04/19 03/04/19 23:59 07:59 15:59 Output Total 250 / 250 400 / 400 Balance -250 / -250 -400 / -400 Output: Urine 250 / 250 400 / 400 Other: # Voids 1 Blood Glucose* 159 112 - Exam Exam: Constitiutional: Alert and oriented x 3. Well nourished. No acute distress noted Vascular: nonpalpable DP/PT RLE d/t edema, 3/4 edema RLE, CFT <3 sec to all digits RLE, warm to warm from tibia to toes RLE, no calf pain with squeeze RLE Neurologic: Diminished sensation to touch, normal plantar response Dermatologic: Incision noted to right lateral mal with toby noted. Well approximated, minimal erythema noted, expected postoperatively. Incision noted to right medial mal with toby noted. Ecchymosis noted above incision. Tenting noted to right medial mal. Minimal erythema noted. Edema noted 3/4 to RLE. Fract ure blistering noted to right anterior medial and lateral lower extremity. Stable diabetic ulcer grade 1 noted to 2nd met head, plantar aspect. Right 5th digit with open bullae noted. Purulent drainage noted. Erythema noted. No foul odor noted. No streaking noted. Musculoskeletal: 3/5 muscle strength and normal tone RLE. - Lab Result Diagrams: 03/04/19 04:00 03/04/19 04:00 Labs: Abnormal lab results RBC 3.57 M/mcL (3.82-4.97) L 03/04/19 04:00 Hgb 9.5 g/dL (11.5-15.4) L 03/04/19 04:00 Hct 30.5 % (35.3-44.9) L 03/04/19 04:00 MCH 26.6 pg (28.0-33.3) L 03/04/19 04:00 MCHC 31.1 g/dL (31.6-35.5) L 03/04/19 04:00 D-Dimer 1126 ng/mLFEU (0-500) H 03/03/19 02:41 Carbon Dioxide 30 mEq/L (23-29) H 03/04/19 04:00 Glucose 117 mg/dL (70-105) H 03/04/19 04:00 POC Glucose 112 mg/dL (70-99) H 03/04/19 07:02 Hemoglobin A1c 12.7 % (-5.6) H 03/02/19 05:53 Microbiology, Last 48 Hours 03/01/19 01:33 Anaerobic Culture - Preliminary Right Fifth Toe At this time, no anaerobic growth is present. The culture will be finalized after 5 days of incubation. 03/01/19 01:33 Wound Culture - Final Right Fifth Toe Strep agalactiae - (Group B) Consult Discharge Plan - Plan Additional Instructions: Follow up in podiatry office in 1 week. Please make appointment prior to d/c. Referrals: Tracy Rizzo CLINICAL CYTOPATHOLOGIST [Primary Care Provider] -
--- NOTE | 2019-03-04 11:25 | Internal Med Progress Note ---
Hospitalist Progress Note - Encounter Date of Encounter: 03/04/19 Time of Encounter: 11:23 - Subjective Interval History: Patient was seen and examined. She status post right ORIF with complications while here. Podiatry is following with plans to take back to the OR for revision as x-ray showed persistent subluxation. Stay, thereby chest pain with remarkable EKG, troponins are negative, negative CK. Stress test was done this morning and pending results. - Exam Vitals: Temp Pulse Resp BP Pulse Ox 98.4 F 69 15 150/86 97 03/04/19 11:03 03/04/19 11:03 03/04/19 11:03 03/04/19 11:03 03/04/19 11:03 Exam: GEN: NAD CVS: RRR. S1, S2, No m/r/g RESP: CTAB ABD: Soft, NT, ND, +BS EXT: No edema. 2+ DP. No rashes NEURO: Nonfocal - Assessment and Plan (1) Closed trimalleolar fracture of right ankle Current Visit: Yes Status: Acute Assessment and Plan: Status post ORIF. Seems to be undergoing complications and x-ray done this morning showed subluxation. Plan to take the OR tomorrow per the screener operator noted. (2) Chest pain Current Visit: Yes Status: Acute Assessment and Plan: Stress test pending this morning. No chest pain (3) Diabetic foot ulcer Current Visit: Yes Status: Acute Assessment and Plan: Cultures are positive for strep agalactiae. Patient has been started on doxycycline since admission. (4) HTN (hypertension) Current Visit: Yes Status: Chronic Assessment and Plan: Continue home meds (5) Hypothyroid Current Visit: Yes Status: Chronic Assessment and Plan: Continue home meds (6) Insulin dependent diabetes mellitus Current Visit: Yes Status: Chronic Assessment and Plan: Continue sliding scale insulin. On Levemir 45 units daily at bedtime. Continue Accu-Cheks. (7) CHF (congestive heart failure) Current Visit: Yes Status: Acute Assessment and Plan: Stable continue home meds. DVT Prophylaxis: Patient is on Xarelto - Time Spent with Patient Total time spent is greater than 50% in coordination of care (as documented) at patient's floor/unit and/or counseling patient: Internal Medicine: Result - Labs CBC & Chem 7: 03/04/19 04:00 03/04/19 04:00 Labs: Short CBC 03/04/19 Range/Units 04:00 WBC 5.9 (4.3-11.1) K/mcL Hgb 9.5 L (11.5-15.4) g/dL Hct 30.5 L (35.3-44.9) % Plt Count 147 (140-400) K/mcL Neutrophils # 3.8 (1.6-8.9) K/mcL BMP 03/04/19 04:00 Sodium 137 Potassium 3.9 Chloride 101 Carbon Dioxide 30 H BUN 16 Creatinine 0.86 Glucose 117 H Calcium 8.9 - ABG Interpretation ABG results: PT/INR, D-dimer D-Dimer 1126 ng/mLFEU (0-500) H 03/03/19 02:41 - Impressions Impressions Echocardiogram Limited Views 03/03/19 09:01 Impressions: LVEF 55-60%. Mildly dilated left ventricle. Moderately dilated left atrium. Mild segmental left ventricular systolic dysfunction. The IVC is dilated. Left Ventricular Wall Motion: Rest Echo Findings The apical anterior wall was hypokinetic. All other wall segments showed normal motion. Findings: Study Quality * Technically adequate exam. ECG Findings * Normal sinus rhythm. Left Ventricle * LVEF 55%. * Definity echo contrast was used. * Atypical septal motion noted. * Mildly dilated left ventricle. * There is no LV thrombus. * Mild segmental left ventricular systolic dysfunction. Left Atrium * Moderately dilated left atrium. Right Atrium * Mildly dilated right atrium. IVC * The IVC is dilated. Ankle X-Ray 03/04/19 09:12 IMPRESSION: Postsurgical changes as described above. Medial subluxation of the tibial plafond with respect to the talus. D/ / 03/04/2019 10:55:27 Kofi Urbina MD / Michelle Suarez Interpreting Provider: Kofi Urbina MD Foot X-Ray 03/04/19 10:08 IMPRESSION: 1. Soft tissue gas in the 5th digit. No acute osseous abnormality in the forefoot. 2. Disruption/dislocation of the ankle better characterized on the concurrent ankle radiographs. D/ / 03/04/2019 11:10:02 Mike Sprague MD / eric Interpreting Provider: Mike Sprague MD Consult Discharge Plan - Plan Additional Instructions: Follow up in podiatry office in 1 week. Please make appointment prior to d/c. Referrals: Tracy Rizzo CNP [Primary Care Provider] - ___ (1) Closed trimalleolar fracture of right ankle Qualifiers: Encounter type: subsequent encounter Fracture healing: with routine healing Qualified Code(s): S82.851D - Displaced trimalleolar fracture of right lower leg, subsequent encounter for closed fracture with routine healing (2) Chest pain Qualifiers: Chest pain type: unspecified Qualified Code(s): R07.9 - Chest pain, unsp ecified (3) Diabetic foot ulcer Qualifiers: Diabetic foot ulcer location: toe Diabetes mellitus type: type 2 Laterality: right Non-pressure ulcer stage: unspecified non-pressure ulcer stage Qualified Code(s): E11.621 - Type 2 diabetes mellitus with foot ulcer; L97.519 - Non- pressure chronic ulcer of other part of right foot with unspecified severity (4) HTN (hypertension) Qualifiers: Hypertension type: essential hypertension Qualified Code(s): I10 - Essential (primary) hypertension (5) Hypothyroid Qualifiers: Hypothyroidism type: unspecified Qualified Code(s): E03.9 - Hypothyroidism, unspecified (7) CHF (congestive heart failure) Qualifiers: Heart failure chronicity: chronic
[2019-03-04] MEDS ORDERED: Magnesium Oxide 400 MG TABLET PO ONE (11:28)
[2019-03-04] MEDS: Furosemide 40 MG TABLET PO SCH (16:44)
[2019-03-04] MEDS: Pregabalin 50 MG CAPSULE PO SCH (16:45)
--- NOTE | 2019-03-04 17:53 | Electrocardiograph Report ---
[address] [address] Test Date: 2019-03-03 Pat Name: Ally Woo Department: 114 Room: [facility] Gender: F Senior Sharepoint Architect: LAKEISHA : 1970 Requested By: Gilbert Lindsay Order Number: [id number] Reading MD: Avel Fulton Measurements Intervals [place] Rate: 68 P: 50 [place]: 172 QRS: -4 QRSD: 105 T: 4 QT: 387 QTc: 404 Interpretive Statements SINUS RHYTHM WITH OCCASIONAL ECTOPIC PREMATURE COMPLEXES INDETERMINATE AXIS Low-voltage QRS complexes Electronically Signed On 03-04-2019 17:51:43 EDT by Avel Fulton
--- NOTE | 2019-03-04 17:55 | Anesthesia Evaluation PreOp ---
Addendum entered and electronically signed by Carolyn Gill MD 03/05/19 15:37: Vital Signs Temp Pulse Resp BP Pulse Ox 03/05/19 10:59 98.6 F 61 18 143/84 96 03/05/19 07:55 97.8 F 61 18 146/86 96 03/05/19 03:45 98.0 F 62 15 143/86 92 03/04/19 23:55 98.5 F 64 15 141/71 95 03/04/19 19:22 98.4 F 66 15 107/70 94 03/04/19 15:39 97.4 F L 71 14 132/94 96 Intake and Output 03/04/19 03/05/19 03/05/19 23:59 07:59 15:59 Intake Total 0 / 0 Balance 0 / 0 Intake: Oral 0 / 0 Other: Meal Lunch Percent of Meal Consumed 0% # Voids 0 Weight 125.7 kg Blood Glucose* 213 82 Patient Weight 03/05/19 23:59 Weight 125.7 kg Laboratory Results WBC 6.5 K/mcL (4.3-11.1) 03/05/19 03:10 RBC 3.56 M/mcL (3.82-4.97) L 03/05/19 03:10 Hgb 9.5 g/dL (11.5-15.4) L 03/05/19 03:10 Hct 30.7 % (35.3-44.9) L 03/05/19 03:10 MCV 86.2 fL (83.0-100.0) 03/05/19 03:10 MCH 26.7 pg (28.0-33.3) L 03/05/19 03:10 MCHC 30.9 g/dL (31.6-35.5) L 03/05/19 03:10 RDW 13.5 % (11.5-14.5) 03/05/19 03:10 Plt Count 167 K/mcL (140-400) 03/05/19 03:10 MPV 11.9 fL (9.4-12.4) 03/05/19 03:10 Immature Gran % 0.3 % (0-4) 03/05/19 03:10 Seg Neutrophils % 63.2 % 03/05/19 03:10 Lymphocytes % 26.1 % 03/05/19 03:10 Monocytes % 8.6 % 03/05/19 03:10 Eosinophils % 1.5 % 03/05/19 03:10 Basophils % 0.3 % 03/05/19 03:10 Neutrophils # 4.1 K/mcL (1.6-8.9) 03/05/19 03:10 Lymphocytes # 1.7 K/mcL (0.6-4.6) 03/05/19 03:10 Monocytes # 0.6 K/mcL (0.0-1.3) 03/05/19 03:10 Eosinophils # 0.1 K/mcL (0.0-0.6) 03/05/19 03:10 Basophils # 0.0 K/mcL (0.0-0.2) 03/05/19 03:10 D-Dimer 1126 ng/mLFEU (0-500) H 03/03/19 02:41 Sodium 140 mEq/L (136-145) 03/05/19 03:10 Potassium 4.0 mEq/L (3.5-5.1) 03/05/19 03:10 Chloride 102 mEq/L (98-107) 03/05/19 03:10 Carbon Dioxide 31 mEq/L (23-29) H 03/05/19 03:10 BUN 20 mg/dL (6-20) 03/05/19 03:10 Creatinine 0.93 mg/dL (0.60-1.20) 03/05/19 03:10 Est GFR ( Amer) > 60 (> 60) 03/05/19 03:10 Est GFR (Non-Af Amer) > 60 (> 60) 03/05/19 03:10 BUN/Creatinine Ratio 22 (6-26) 03/05/19 03:10 Glucose 105 mg/dL (70-105) 03/05/19 03:10 POC Glucose 70 mg/dL (70-99) 03/05/19 08:05 Est Mean Plasma Glucose 318 mg/dl 03/02/19 05:53 Hemoglobin A1c 12.7 % (-5.6) H 03/02/19 05:53 Calculated Osmolality 293 (280-300) 03/05/19 03:10 Calcium 8.8 mg/dL (8.6-10.3) 03/05/19 03:10 Phosphorus 3.9 mg/dL (2.7-4.5) 03/05/19 03:10 Magnesium 1.5 mg/dL (1.6-2.6) L 03/05/19 03:10 Troponin I < 0.03 ng/mL (< 0.04) 03/03/19 08:53 Urine Test Negative (Negative) 02/28/19 20:20 Impressions \ Echocardiogram Limited Views 03/03/19 09:01 Impressions: LVEF 55-60%. Mildly dilated left ventricle. Moderately dilated left atrium. Mild segmental left ventricular systolic dysfunction. The IVC is dilated. Left Ventricular Wall Motion: Rest Echo Findings The apical anterior wall was hypokinetic. All other wall segments showed normal motion. Findings: Study Quality * Technically adequate exam. ECG Findings * Normal sinus rhythm. Left Ventricle * LVEF 55%. * Definity echo contrast was used. * Atypical septal motion noted. * Mildly dilated left ventricle. * There is no LV thrombus. * Mild segmental left ventricular systolic dysfunction. Left Atrium * Moderately dilated left atrium. Right Atrium * Mildly dilated right atrium. IVC * The IVC is dilated. Original Note: Date of Encounter: 03/04/19 Time of Encounter: 17:53 - Past History Planned Operation: Right Subtalor Joint Fusion Cardiac History: CHF (H/O CHF), HTN Pulmonary History: Other (Anxiety) SUPERVISOR TELEVISION CHASSIS REPAIR History: Other (Diabetic Neuropathy) Other Medical History: Diabetes Type II, Thyroid (Hypo) Anesthesia History: No Prior Anesthetic Complications, Past Anesthesia (c/s, LEEP x 2, ORIF R-ankle) : No Test: Negative Alcohol Use: none Drug use: none Medications and Allergies Carvedilol [Coreg] 50 mg PO BID 03/29/16 [History] DULoxetine [Cymbalta] 30 mg PO BID 08/11/17 [History] Levothyroxine [Synthroid] 75 mcg PO DAILY 08/11/17 [History] Furosemide [Lasix] 40 mg PO BID #30 tablet 08/12/17 [Rx] Aspirin [Lo-Dose Aspirin EC] 81 mg PO DAILY 02/28/19 [History] Pregabalin [Lyrica] 200 mg PO QPM 02/28/19 [History] Doxycycline 100 mg PO BID 03/01/19 [History] Dulaglutide [Trulicity] 1.5 mg SQ MO 03/01/19 [History] Insulin Regular U-500 [HumuLIN R U-500] 60 unit SQ BID 03/01/19 [History] Levofloxacin [Levaquin] 750 mg PO DAILY 03/01/19 [History] Pregabalin [Lyrica] 100 mg PO QAM 03/01/19 [History] Sacubitril/Valsartan 97/103 mg [Entresto 97 mg-103 mg Tablet] 1 tab PO BID 03/01/19 [History] Spironolactone 25 mg PO QAM 03/02/19 [History] Trazodone HCl 100 mg PO HS PRN 03/02/19 [History] Allergy/AdvReac Type Severity Reaction Status Date / Time vancomycin Allergy Severe See Verified 03/02/19 13:23 Comments - Meds/Allergy Pre-op Review Medications Reviewed: Yes Allergies Reviewed: Yes Beta Blockers on Current Med List: No Anesthesia Results - Labs 03/04/19 04:00 03/04/19 04:00 - Imaging EKG: report reviewed (SINUS RHYTHM WITH OCCASIONAL ECTOPIC PREMATURE COMPLEXES INDETERMINATE AXIS Low-voltage QRS complexes) Additional studies: Limited Echo with Imaging Enhancement Agent Name: Ally Woo Date of Study: 03/03/2019 EV/EV limited echo w enhance Impressions: LVEF 55-60%. Mildly dilated left ventricle. Moderately dilated left atrium. Mild segmental left ventricular systolic dysfunction. The IVC is dilated. 03/03/19 Fixed perfusion Defecit Apical inferior, Apical septa, and apical wall EF- 53% No Ischemia Anesthesia Exam Vital Signs/O2 Sat, Most Current Temp Pulse Resp BP Pulse Ox 98.4 F 66 15 107/70 94 03/04/19 19:22 03/04/19 19:22 03/04/19 19:22 03/04/19 19:22 03/04/19 19:22 - HEENT Pupil (Motor): Pupils equal, EOMI Mallampati: II Teeth: Normal Oral Opening: Greater than 3 - SUPERVISOR TELEVISION CHASSIS REPAIR LOC: Oriented SUPERVISOR TELEVISION CHASSIS REPAIR Motor: Normal RUE, Normal LUE, Normal RLE, Normal LLE, Normal Face SUPERVISOR TELEVISION CHASSIS REPAIR Sensory: Normal: RUE, LUE, RLE, LLE, Face - Cardiac Rhythm: Regular Murmur: None JVD: No Carotid Bruit: No - Pulmonary Breath Sounds: bilateral Clear Respiratory Effort: Symmetrical Anesthesia Assess/Plan ASA Score: 3 Level of consciousness: Cooperative Anesthetic Plan: General, Regional Nerve Block Regional Nerve Block Plan: Popliteal Autologous Blood: Yes Monitoring Plan: Standard Monitors Recovery Plan: PACU
[2019-03-04] MEDS: Insulin DETEMIR 100 UNIT/ML X5UNITS SQ SCH (21:28)
[2019-03-04] MEDS: levoFLOXacin 750 MG TABLET PO SCH (21:29)
--- NOTE | 2019-03-04 21:34 | Podiatry Progress Note ---
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 I asked the patient if she wants an amputation of her leg now and she said no. I told her she is not going to have a choice other than an above or below the knee amputation should she mess up surgery if we do it again. She is going to require a tibiotalocalcaneal arthrodesis with hardware and bone graft. I discussed with her should she put any pressure whatsoever on her operated leg that she is most likely going to cause the surgery to fail and will need an amputation of the leg. Discussed it is imperative she improve her A1c or the likelihood of infection is signficant which could also lead to an amputation of her leg. I told the patient she is her own detriment and has to remain non- weight bearing and has to be compliant with trying to help herself or the complications that arise are no ones fault but her own. I told her the likelihood of her leg be salvaged should she continue down this path is very low and I don't think she will have a leg in the near future. Nature of this procedure, risks versus benefits potential complications and consequences of surgery and her condition discussed at length including but not limited to infection bleeding swelling numbness tingling nerve damage persistent or worsening pain heart attack pulmonary embolism blood clot pneumonia scar wound healing problems delayed or nonunion of fracture/fusion lack of procedure to produce desired outcome loss of functionality loss of leg need for hardware removal need for further surgery etc. all of her questions were answered and the informed consent was signed. We did discuss a typical course of recovery and she will be nonweightbearing for at least 3 months or longer. I made it clear to her these complications could ultimately lead to her demise. Patient says she understands. Patient requested to stay at [facility]. All questions answered, informed consent was signed. NPO after midnight. Qualifiers: Encounter type: subsequent encounter Fracture healing: with nonunion Qualified Code(s): S82.851K - Displaced trimalleolar fracture of right lower leg, subsequent encounter for closed fracture with nonunion Subjective Principal diagnosis: s/p ORIF right ankle fracture Interval history: Reported to me patient was standing and walking on her right LE which had been operated on and she heard a "crunch". Xray was ordered showing a dislocated tibiotalar joint with disruption of her ankle fracture repair. When I came to the room to evaluate the patient she said "I didn't walk on it that much." She says she should have been in a boot so she can walk on it. She says she has pain in the leg and asks what we can do to fix it. Objective - Vital Signs Vital Signs: Vital Signs Temp Pulse Resp BP Pulse Ox 03/04/19 19:22 98.4 F 66 15 107/70 94 03/04/19 15:39 97.4 F L 71 14 132/94 96 03/04/19 11:03 98.4 F 69 15 150/86 97 03/04/19 07:02 98.3 F 62 15 148/91 97 03/03/19 23:18 97.5 F L 67 15 161/83 93 Intake and Output 03/04/19 03/04/19 03/04/19 07:59 15:59 23:59 Output Total 400 / 400 Balance -400 / -400 Output: Urine 400 / 400 Other: # Voids 1 1 Blood Glucose* 112 101 213 - Exam Exam: feet warm to touch. CFT intact. no purulence from 5th digit. obvious deformity of the medial leg without tenting or new necrosis. xray: dislocated tibiotalar joint with hardware disruption there is no soft tissue gas around her right 5th toe - Lab Result Diagrams: 03/05/19 03:10 03/05/19 03:10 Labs: Abnormal lab results RBC 3.57 M/mcL (3.82-4.97) L 03/04/19 04:00 Hgb 9.5 g/dL (11.5-15.4) L 03/04/19 04:00 Hct 30.5 % (35.3-44.9) L 03/04/19 04:00 MCH 26.6 pg (28.0-33.3) L 03/04/19 04:00 MCHC 31.1 g/dL (31.6-35.5) L 03/04/19 04:00 D-Dimer 1126 ng/mLFEU (0-500) H 03/03/19 02:41 Carbon Dioxide 30 mEq/L (23-29) H 03/04/19 04:00 Glucose 117 mg/dL (70-105) H 03/04/19 04:00 POC Glucose 176 mg/dL (70-99) H 03/04/19 16:07 Hemoglobin A1c 12.7 % (-5.6) H 03/02/19 05:53 Microbiology, Last 48 Hours 03/01/19 01:33 Anaerobic Culture - Preliminary Right Fifth Toe At this time, no anaerobic growth is present. The culture will be finalized after 5 days of incubation. Consult Discharge Plan - Plan Additional Instructions: Follow up in podiatry office in 1 week. Please make appointment prior to d/c. Referrals: Tracy Rizzo WHARF WORKER [Primary Care Provider] -
[2019-03-05] MEDS: *HR* OxyCODONE/APAP 5/325 TABLET PO PRN ×2 (03:27→13:26)
[2019-03-05 03:37] LABS: Basophils % 0.3 %; Eosinophils # 0.1 K/mcL (0.0-0.6); Eosinophils % 1.5 %; Hematocrit 30.7 % (35.3-44.9); Hemoglobin 9.5 g/dL (11.5-15.4); Immature Granulocytes % 0.3 % (0-4); Lymphocytes # 1.7 K/mcL (0.6-4.6); Lymphocytes % 26.1 %; Mean Corpuscular HGB Conc 30.9 g/dL (31.6-35.5); Mean Corpuscular Hemoglobin 26.7 pg (28.0-33.3); Mean Corpuscular Volume 86.2 fL (83.0-100.0); Mean Platelet Volume 11.9 fL (9.4-12.4); Monocytes # 0.6 K/mcL (0.0-1.3); Monocytes % 8.6 %; Neutrophils # 4.1 K/mcL (1.6-8.9); Platelet Count 167 K/mcL (140-400); Red Blood Count 3.56 M/mcL (3.82-4.97); Red Cell Distribution Width 13.5 % (11.5-14.5); Segmented Neutrophils % 63.2 %
[2019-03-05 03:58] LABS: BUN/Creatinine Ratio 22 (6-26); Blood Urea Nitrogen 20 mg/dL (6-20); Calcium 8.8 mg/dL (8.6-10.3); Carbon Dioxide 31 mEq/L (23-29); Chloride 102 mEq/L (98-107); Glucose 105 mg/dL (70-105); Magnesium 1.5 mg/dL (1.6-2.6); Osmolality,Calculated 293 (280-300); Phosphorous 3.9 mg/dL (2.7-4.5); Sodium 140 mEq/L (136-145); eGFR For Non-African Americans > 60 (> 60)
[2019-03-05] MEDS: *HR* Heparin 5,000 UNIT/ML VIAL SQ SCH ×3 (05:33→21:40)
[2019-03-05] MEDS: Doxycycline 100 MG CAPSULE PO SCH ×2 (08:29→21:10)
[2019-03-05] MEDS: Pregabalin 50 MG CAPSULE PO SCH ×2 (08:30→16:56)
[2019-03-05] MEDS: Insulin LISPRO 300 UNITS/3 ML VIAL SQ SCH ×4 (08:52→21:40)
--- NOTE | 2019-03-05 11:04 | Internal Med Progress Note ---
Hospitalist Progress Note - Encounter Date of Encounter: 03/05/19 Time of Encounter: 11:02 - Subjective Interval History: Patient was seen and examined. She status post right ORIF of ankle with complications while here. She was not compliant with nonweightbearing instructions and ended up dislocating the ORIF area. Podiatry is following with plans to take back to the OR for revision today as x-ray showed persistent subluxation. Stress test was negative. No chest pain - Exam Vitals: Temp Pulse Resp BP Pulse Ox 98.6 F 61 18 143/84 96 03/05/19 10:59 03/05/19 10:59 03/05/19 10:59 03/05/19 10:59 03/05/19 10:59 Exam: GEN: NAD CVS: RRR. S1, S2, No m/r/g RESP: CTAB ABD: Soft, NT, ND, +BS EXT: No edema. 2+ DP. No rashes NEURO: Nonfocal - Assessment and Plan (1) Closed trimalleolar fracture of right ankle Current Visit: Yes Status: Acute Assessment and Plan: Status post ORIF. Was not compliant with nonweightbearing instructions and ended up with subluxation at the area of the previous ORIF. Plan to take the OR today for revision. (2) Chest pain Current Visit: Yes Status: Acute Assessment and Plan: Stress test negative. Chest chest pain free. (3) Diabetic foot ulcer Current Visit: Yes Status: Acute Assessment and Plan: Cultures are positive for strep agalactiae. Patient has been started on doxycycline since admission. (4) HTN (hypertension) Current Visit: Yes Status: Chronic Assessment and Plan: Continue home meds (5) Hypothyroid Current Visit: Yes Status: Chronic Assessment and Plan: Continue home meds (6) Insulin dependent diabetes mellitus Current Visit: Yes Status: Chronic Assessment and Plan: Continue sliding scale insulin. On Levemir 45 units daily at bedtime. Continue Accu-Cheks. (7) CHF (congestive heart failure) Current Visit: Yes Status: Acute Assessment and Plan: Stable continue home meds. DVT Prophylaxis: Patient is on Xarelto - Time Spent with Patient Total time spent is greater than 50% in coordination of care (as documented) at patient's floor/unit and/or counseling patient: Internal Medicine: Result - Labs CBC & Chem 7: 03/05/19 03:10 04/18/19 03:10 Labs: Short CBC 03/05/19 Range/Units 03:10 WBC 6.5 (4.3-11.1) K/mcL Hgb 9.5 L (11.5-15.4) g/dL Hct 30.7 L (35.3-44.9) % Plt Count 167 (140-400) K/mcL Neutrophils # 4.1 (1.6-8.9) K/mcL BMP 03/05/19 03:10 Sodium 140 Potassium 4.0 Chloride 102 Carbon Dioxide 31 H BUN 20 Creatinine 0.93 Glucose 105 Calcium 8.8 - ABG Interpretation ABG results: PT/INR, D-dimer D-Dimer 1126 ng/mLFEU (0-500) H 03/03/19 02:41 - Impressions Impressions Foot X-Ray 03/04/19 10:08 IMPRESSION: 1. Soft tissue gas in the 5th digit. No acute osseous abnormality in the forefoot. 2. Disruption/dislocation of the ankle better characterized on the concurrent ankle radiographs. D/ / 03/04/2019 11:10:02 Mike Sprague MD / eric Interpreting Provider: Mike Sprague MD Consult Discharge Plan - Plan Additional Instructions: Follow up in podiatry office in 1 week. Please make appointment prior to d/c. Referrals: Tracy Rizzo, SHIPPING AND RECEIVING [Primary Care Provider] - (1) Closed trimalleolar fracture of right ankle Qualifiers: Encounter type: subsequent encounter Fracture healing: with nonunion Qualified Code(s): S82.851K - Displaced trimalleolar fracture of right lower leg, subsequent encounter for closed fracture with nonunion (2) Chest pain Qualifiers: Chest pain type: unspecified Qualified Code(s): R07.9 - Chest pain, unspecified (3) Diabetic foot ulcer Qualifiers: Diabetic foot ulcer location: toe Diabetes mellitus type: type 2 Laterality: right Non-pressure ulcer stage: unspecified non-pressure ulcer stage Qualified Code(s): E11.621 - Type 2 diabetes mellitus with foot ulcer; L97.519 - Non- pressure chronic ulcer of other part of right foot with unspecified severity (4) HTN (hypertension) Qualifiers: Hypertension type: essential hypertension Qualified Code(s): I10 - Essential (primary) hypertension (5) Hypothyroid Qualifiers: Hypothyroidism type: unspecified Qualified Code(s): E03.9 - Hypothyroidism, unspecified (7) CHF (congestive heart failure) Qualifiers: Heart failure chronicity: chronic
[2019-03-05] MEDS: *HR* Morphine 2 MG/ML SYRINGE IVP PRN ×3 (11:33→21:40)
[2019-03-05] MEDS: Furosemide 40 MG TABLET PO SCH (16:57)
--- NOTE | 2019-03-05 17:06 | Operative Note ---
Date of procedure: 03/05/19 Pre-op diagnosis: right ankle fracture/dislocation non-union Post-op diagnosis: same Procedure: right ankle arthrodesis subtalar arthrodesis removal of hardware Implants: [id number] intramedullary nail, bone graft Anesthesia: ANATOLIYA Surgeon: Bassam Chaves Was there an business assistant present: No Estimated blood loss (cc): 50 Specimen: none Condition: stable Disposition: PACU Procedure in Detail: Indications: 48-year-old diabetic neuropathic female who is admittedly noncompliant with weightbearing status after her ankle fracture ORIF and sustained further ankle fracture/dislocation of the right lower extremity due to walking on her ankle. No guarantees were made that the patient's leg would be able to be salvaged and it was explained to the patient that she could end up requiring an amputation of her leg due to her noncompliance and this surgery would be her last chance at salvaging her right lower extremity. Nature of the procedure, risks versus benefits potential complications consequences of surgery and her condition discussed at length. She understood and it was repeatedly explained it is imperative that she remain nonweightbearing to the right lower extremity and control her blood sugar otherwise she is looking at an amputation of her leg. All of her questions have been answered and the informed consent was signed. Patient was taken from the preoperative holding area into the operating room and placed on the operating room table in the supine position. A thigh tourniquet was applied and inflated to 300 mmHg. The right lower extremity was scrubbed prepped and draped in the usual sterile fashion and the following procedure began. Removal of hardware right ankle. Attention was direct lateral aspect of the patient's right ankle where toby were removed and a skin incision made over the previous incision site and blunt dissection was carried out down to the level of the hardware and the soft tissue was freed surrounding the hardware and the lateral ankle plate and screws were removed. Attention was then directed medially stab incision was made and K wire inserted into the cannulated screw and the screw was removed. Right ankle and subtalar joint arthrodesis. Attention was then directed to the proximal aspect of the fibula through the lateral incision which was lengthened proximally. A sagittal saw was used to resect the fibula and the ankle joint was identified as well as the subtalar joint. Using a combination of the curette, osteotomes and rotary bur the cartilage was removed from the tibiotalar joint as well as the subtalar joint. Infuse was applied to the ankle joint and subtalar joint fusion zone. Bleeding cancellous bone was present and the ankle joint and subtalar joint were held in alignment and temporarily pinned. Next under fluoroscopy a guidewire was thrown and using standard technique a 12 mm Triway [id number] intramedullary nail was inserted using standard technique. Appropriate screws were placed and clinically good apposition was obtained of the fusion zones with the ankle in good position and alignment. C-arm was utilized to confirm position and alignment under fluoroscopy. Deep and subcutaneous tissue was reapproximated with 0 Vicryl and skin reapproximated with toby and 2-0 Prolene. Patient tolerated anesthesia procedure well. Postoperative bandaging included Xeroform, 4 x 4 gauze Kerlix and an adequately padded posterior splint. Prior to surgery and again after surgery was discussed with the patient that she is to remain nonweightbearing to the right lower extremity and she demonstrated understanding by nodding her head. She will return to the floor.
[2019-03-05] MEDS: levoFLOXacin 750 MG TABLET PO SCH (21:10)
--- NOTE | 2019-03-05 21:11 | Event Note ---
Date of Encounter: 03/05/19 Time of Encounter: 09:00 Discussed with patient current situation with operating room still doing scheduled cases and there are emergent add ons that are going to be going on well into tomorrow that have bumped our surgery. Patient in agreement to proceed tomorrow instead of waiting into the morning hours. She may eat/drink until midnight and then she will be NPO after midnight. Discussed with nurse. Plan is for OR tomorrow but again she was made aware this is as an add on and I cannot guarantee a time.
[2019-03-05] MEDS: Insulin DETEMIR 100 UNIT/ML X5UNITS SQ SCH (22:00)
[2019-03-06] MEDS: *HR* Morphine 2 MG/ML SYRINGE IVP PRN ×5 (01:32→16:35)
[2019-03-06 03:30] LABS: Basophils % 0.2 %; Eosinophils # 0.1 K/mcL (0.0-0.6); Eosinophils % 1.8 %; Hematocrit 32.9 % (35.3-44.9); Hemoglobin 10.4 g/dL (11.5-15.4); Immature Granulocytes % 0.7 % (0-4); Lymphocytes # 1.6 K/mcL (0.6-4.6); Lymphocytes % 26.5 %; Mean Corpuscular HGB Conc 31.6 g/dL (31.6-35.5); Mean Corpuscular Hemoglobin 26.7 pg (28.0-33.3); Mean Corpuscular Volume 84.6 fL (83.0-100.0); Mean Platelet Volume 11.5 fL (9.4-12.4); Monocytes # 0.5 K/mcL (0.0-1.3); Monocytes % 8.9 %; Neutrophils # 3.7 K/mcL (1.6-8.9); Platelet Count 198 K/mcL (140-400); Red Blood Count 3.89 M/mcL (3.82-4.97); Red Cell Distribution Width 13.5 % (11.5-14.5); Segmented Neutrophils % 61.9 %
[2019-03-06 03:47] LABS: BUN/Creatinine Ratio 21 (6-26); Blood Urea Nitrogen 24 mg/dL (6-20); Calcium 9.1 mg/dL (8.6-10.3); Carbon Dioxide 31 mEq/L (23-29); Chloride 97 mEq/L (98-107); Glucose 181 mg/dL (70-105); Magnesium 1.7 mg/dL (1.6-2.6); Osmolality,Calculated 297 (280-300); Phosphorous 4.6 mg/dL (2.7-4.5); Potassium 3.6 mEq/L (3.5-5.1); Sodium 139 mEq/L (136-145); eGFR For Non-African Americans 51 (> 60)
[2019-03-06] MEDS: *HR* Heparin 5,000 UNIT/ML VIAL SQ SCH ×3 (05:29→22:22)
[2019-03-06] MEDS: Pregabalin 50 MG CAPSULE PO SCH ×2 (08:33→16:40)
[2019-03-06] MEDS: Furosemide 40 MG TABLET PO SCH ×2 (08:33→16:35)
[2019-03-06] MEDS: Ondansetron 4 MG/2 ML VIAL IVP PRN (08:34)
[2019-03-06] MEDS: Doxycycline 100 MG CAPSULE PO SCH ×2 (08:35→22:22)
[2019-03-06] MEDS: Insulin LISPRO 300 UNITS/3 ML VIAL SQ SCH ×3 (08:36→16:35)
--- NOTE | 2019-03-06 11:23 | Podiatry Progress Note ---
Date of Encounter: 03/06/19 Time of Encounter: 11:17 - Assessment and Plan (1) Closed trimalleolar fracture of right ankle Current Visit: Yes Status: Acute Assessment: S/P ORIF right trimalleolar ankle fracture on 03/[address] Chaves Splint noted to RLE. No strike through noted WC returned group b strep Plan: NWB RLE NPO at SD OR today for revision of ORIF Patient currently on heparin subq, will need transitioned to xarelto prior to d/c Qualifiers: Encounter type: subsequent encounter Fracture healing: with nonunion Qualified Code(s): S82.851K - Displaced trimalleolar fracture of right lower leg, subsequent encounter for closed fracture with nonunion Subjective Principal diagnosis: s/p ORIF right ankle fracture Interval history: Patient awake in bed. Reports plan for OR tonight. Reports pain /10. Patient questioning why she may need an amputation if stands of foot again. Denies any fevers, chills, vomiting, or diarrhea. Reports nausea. Denies any calf pain or chest pain. Reports shortness of breath. No questions or concerns at this time Objective - Vital Signs Vital Signs: Vital Signs Temp Pulse Resp BP Pulse Ox 03/06/19 08:15 97.9 F 61 12 145/82 98 03/06/19 06:48 97.5 F L 62 19 145/85 90 03/06/19 03:04 98.7 F 63 15 137/82 90 03/05/19 23:37 98.7 F 63 16 128/80 95 03/05/19 19:25 97.2 F L 59 17 172/91 96 03/05/19 16:41 98.3 F 60 15 164/81 96 Intake and Output 03/05/19 03/06/19 03/06/19 23:59 07:59 15:59 Intake Total 0 / 0 Output Total 1000 / 1000 Balance -1000 / -1000 Intake: Oral 0 / 0 Output: Urine 1000 / 1000 Other: # Voids 1 1 Weight 125.8 kg Blood Glucose* 73 196 135 Patient Weight 03/06/19 23:59 Weight 125.8 kg - Exam Exam: Constitiutional: Alert and oriented x 3. Well nourished. No acute distress noted Vascular: splint in place, CFT <3 sec to all digits, Neurologic: Diminished sensation to touch, Dermatologic: Splint in place, no strike through Musculoskeletal: 2/5 muscle strength and normal tone bilaterally. - Lab Result Diagrams: 03/06/19 03:07 03/06/19 03:07 Labs: Abnormal lab results Hgb 10.4 g/dL (11.5-15.4) L 03/06/19 03:07 Hct 32.9 % (35.3-44.9) L 03/06/19 03:07 MCH 26.7 pg (28.0-33.3) L 03/06/19 03:07 D-Dimer 1126 ng/mLFEU (0-500) H 03/03/19 02:41 Chloride 97 mEq/L (98-107) L 03/06/19 03:07 Carbon Dioxide 31 mEq/L (23-29) H 03/06/19 03:07 BUN 24 mg/dL (6-20) H 03/06/19 03:07 Est GFR (Non-Af Amer) 51 (> 60) L 03/06/19 03:07 Glucose 181 mg/dL (70-105) H 03/06/19 03:07 Hemoglobin A1c 12.7 % (-5.6) H 03/02/19 05:53 Phosphorus 4.6 mg/dL (2.7-4.5) H 03/06/19 03:07 Microbiology, Last 48 Hours 03/01/19 01:33 Anaerobic Culture - Preliminary Right Fifth Toe At this time, no anaerobic growth is present. The culture will be finalized after 5 days of incubation. Consult Discharge Plan - Plan Additional Instructions: Follow up in podiatry office in 1 week. Please make appointment prior to d/c. Referrals: Tracy Rizzo, FINGER BUFFS ASSEMBLER [Primary Care Provider] -
[2019-03-06] MEDS: *HR* OxyCODONE/APAP 5/325 TABLET PO PRN (13:04)
[2019-03-06] MEDS ORDERED: Bupivacaine/EPI 1:200k 0.25%PF 30 ML VIAL ONE (16:45)
--- NOTE | 2019-03-06 17:00 | Anesthesia Evaluation PreOp ---
Date of Encounter: 03/06/19 Time of Encounter: 17:00 - Past History Planned Operation: right ankle fx Cardiac History: CHF, HTN, Other Pulmonary History: Denies Any Significant HX CROSSBAR SWITCH ADJUSTER History: Denies Any Significant HX Other Medical History: Thyroid, Other (anxiety chronic pain) Anesthesia History: No Prior Anesthetic Complications, Past Anesthesia (leepx2) Alcohol Use: none Drug use: none Medications and Allergies Carvedilol [Coreg] 50 mg PO BID 03/29/16 [History] DULoxetine [Cymbalta] 30 mg PO BID 08/11/17 [History] Levothyroxine [Synthroid] 75 mcg PO DAILY 08/11/17 [History] Furosemide [Lasix] 40 mg PO BID #30 tablet 08/12/17 [Rx] Aspirin [Lo-Dose Aspirin EC] 81 mg PO DAILY 02/28/19 [History] Pregabalin [Lyrica] 200 mg PO QPM 02/28/19 [History] Doxycycline 100 mg PO BID 03/01/19 [History] Dulaglutide [Trulicity] 1.5 mg SQ MO 03/01/19 [History] Insulin Regular U-500 [HumuLIN R U-500] 60 unit SQ BID 03/01/19 [History] Levofloxacin [Levaquin] 750 mg PO DAILY 03/01/19 [History] Pregabalin [Lyrica] 100 mg PO QAM 03/01/19 [History] Sacubitril/Valsartan 97/103 mg [Entresto 97 mg-103 mg Tablet] 1 tab PO BID 03/01/19 [History] Spironolactone 25 mg PO QAM 03/02/19 [History] Trazodone HCl 100 mg PO HS PRN 03/02/19 [History] Allergy/AdvReac Type Severity Reaction Status Date / Time vancomycin Allergy Severe See Verified 03/02/19 13:23 Comments Anesthesia Results - Labs 03/06/19 03:07 03/06/19 03:07
[2019-03-06] MEDS ORDERED: ROPIVACAINE HCL/PF 0.5% 30 ML VIAL ONE (17:06)
[2019-03-06] MEDS ORDERED: ROPIVACAINE/PF/NS SYRINGE INTRAART ONE (17:06)
--- NOTE | 2019-03-06 17:42 | Anesthesia Procedures ---
Date of Encounter: 03/06/19 Time of Encounter: 17:30 Procedures: Anesthesia - Nerve Block Procedure Date: 03/06/19 Time: 17:30 Allergies/Adv Reactions: vanco Pre-op Diagnosis: right ankle dislocation/fx Surgical Procedure: right ankle fx orif Checklist: Correct Patient Identifier, Correct procedure, History checked Correct side: Right Blood Thinner: No Monitor Applied: EKG, BP, Pulse Oximetry Supplemental Oxygen via Nasal Cannula (L/min): 2 Sedation: Fentanyl (mcg): 100 Indication: Post Op Analgesia Pre-op Neuro Deficits: No Block Type: Popliteal, Other (adductor canal ) Catheter placed: No Sterile Technique: Yes Ultrasound used: Yes Anatomy identified: Yes Visual spread of Local: Yes Neuro Stimulation: Yes Nerve Stimulator Range: 0.2 - 0.4 mA Blood on Needle Aspiration: No Smooth Injection of Local: Yes Pain with Injection of Local: No Prep: Chlorhexadine Needle: 21 x 100 mm Stimuplex Local: Ropivacaine (0.5% with 8mg decadron( pop block) + ropi 0.25% (adductor canal) ) Volume (cc): 50 Number of Attempts: 1 Complications: None/effective block Vitals: Vital Signs - Last 8 Hours Temp Pulse Resp BP Pulse Ox 03/06/19 17:38 61 140/78 99 03/06/19 17:34 63 145/81 99 03/06/19 15:34 97.9 F 60 17 152/86 92 03/06/19 10:50 97.8 F 60 12 127/82 98 Intake and Output 03/06/19 03/06/19 03/06/19 07:59 15:59 23:59 Other: # Voids 1 1 Weight 125.8 kg Blood Glucose* 196 135 93 Patient Weight 03/06/19 23:59 Weight 125.8 kg
[2019-03-06] MEDS ORDERED: Dexamethasone 4 MG/ML VIAL ONE (18:12)
[2019-03-06] MEDS ORDERED: Ondansetron 4 MG/2 ML VIAL ONE (18:12)
[2019-03-06] MEDS ORDERED: Lidocaine -MPF 2% 2 ML VIAL ONE (18:12)
[2019-03-06] MEDS ORDERED: *HR* FentaNYL (PF) 100 MCG/2 ML VIAL ONE (18:12)
[2019-03-06] MEDS ORDERED: *HR* Propofol 200 MG/20 ML VIAL IVP ONE (18:12)
--- NOTE | 2019-03-06 18:27 | Internal Med Progress Note ---
Hospitalist Progress Note - Encounter Date of Encounter: 03/06/19 Time of Encounter: 11:25 - Subjective Interval History: Patient waiting to get surgery today. Nothing by mouth. Review of the lab. Pain is appropriately controlled on current medicine Denies fever chills nausea vomiting headache dizziness chest pain short of breath abdominal pain urinary bowel complaint - Exam Vitals: Temp Pulse Resp BP Pulse Ox 97.9 F 61 17 140/78 99 03/06/19 15:34 03/06/19 17:38 03/06/19 15:34 03/06/19 17:38 03/06/19 17:38 Exam: GEN: NAD , alert awake oriented CVS: RRR. S1, S2, No m/r/g RESP: CTAB ABD: Soft, NT, ND, +BS EXT: No edema. 2+ DP. No rashes right ankle wrapped NEURO: Nonfocal neurological deficit - Assessment and Plan (1) Closed trimalleolar fracture of right ankle Current Visit: Yes Status: Acute Assessment and Plan: Status post ORIF. Was not compliant with nonweightbearing instructions and ended up with subluxation at the area of the previous ORIF. Plan to take the OR today for revision. The patient nothing by mouth. (2) HTN (hypertension) Current Visit: Yes Status: Chronic Assessment and Plan: Continue home meds (3) Hypothyroid Current Visit: Yes Status: Chronic Assessment and Plan: Continue home meds (4) Chest pain Current Visit: Yes Status: Acute Assessment and Plan: Stress test negative. Chest chest pain free. (5) Insulin dependent diabetes mellitus Current Visit: Yes Status: Chronic Assessment and Plan: Continue sliding scale insulin. On Levemir 45 units daily at bedtime. Continue Accu-Cheks. Diabetes diet able to eat (6) CHF (congestive heart failure) Current Visit: Yes Status: Acute Assessment and Plan: Stable continue home meds. (7) Diabetic foot ulcer Current Visit: Yes Status: Acute Assessment and Plan: Cultures are positive for strep agalactiae. Patient has been started on doxycycline since admission. - Time Spent with Patient Total time spent is greater than 50% in coordination of care (as documented) at patient's floor/unit and/or counseling patient: 25 - 35 minutes Plan of Care Discussed with: patient Internal Medicine: Result - Labs CBC & Chem 7: 03/06/19 03:07 03/06/19 03:07 Labs: Short CBC 03/06/19 Range/Units 03:07 WBC 6.0 (4.3-11.1) K/mcL Hgb 10.4 L (11.5-15.4) g/dL Hct 32.9 L (35.3-44.9) % Plt Count 198 (140-400) K/mcL Neutrophils # 3.7 (1.6-8.9) K/mcL BMP 03/06/19 03:07 Sodium 139 Potassium 3.6 Chloride 97 L Carbon Dioxide 31 H BUN 24 H Creatinine 1.13 Glucose 181 H Calcium 9.1 - ABG Interpretation ABG results: PT/INR, D-dimer D-Dimer 1126 ng/mLFEU (0-500) H 03/03/19 02:41 - Impressions Impressions Ankle X-Ray 03/04/19 09:12 IMPRESSION: Postsurgical changes as described above. Medial subluxation of the tibial plafond with respect to the talus. D/ / 03/04/2019 10:55:27 Kofi Urbina MD / Michelle Suarez Interpreting Provider: Kofi Urbina MD Consult Discharge Plan - Plan Additional Instructions: Follow up in podiatry office in 1 week. Please make appointment prior to d/c. Referrals: Tracy Rizzo, BLEACH MACHINE OPERATOR [Primary Care Provider] - (1) Closed trimalleolar fracture of right ankle Qualifiers: Encounter type: subsequent encounter Fracture healing: with nonunion Qualified Code(s): S82.851K - Displaced trimalleolar fracture of right lower leg, subsequent encounter for closed fracture with nonunion (2) HTN (hypertension) Qualifiers: Hypertension type: essential hypertension Qualified Code(s): I10 - Essential (primary) hypertension (3) Hypothyroid Qualifiers: Hypothyroidism type: unspecified Qualified Code(s): E03.9 - Hypothyroidism, unspecified (4) Chest pain Qualifiers: Chest pain type: unspecified Qualified Code(s): R07.9 - Chest pain, unspecified (6) CHF (congestive heart failure) Qualifiers: Heart failure chronicity: chronic (7) Diabetic foot ulcer Qualifiers: Diabetic foot ulcer location: toe Diabetes mellitus type: type 2 Laterality: right Non-pressure ulcer stage: unspecified non-pressure ulcer stage Qualified Code(s): E11.621 - Type 2 diabetes mellitus with foot ulcer; L97.519 - Non- pressure chronic ulcer of other part of right foot with unspecified severity
--- NOTE | 2019-03-06 21:08 | Operative Note ---
Date of procedure: 03/06/19 Pre-op diagnosis: right ankle fracture/dislocation, diabetes with neuropathy with use of insu Post-op diagnosis: same Procedure: Removal of right ankle hardware right ankle joint fusion right subtalar joint fusion Implants: [id number] Triway 11mm tibiotalocalcaneal intramedullary arthrodesis nail, In-fuse (2.5cc) Complications: none Anesthesia: GETA Surgeon: Bassam Chaves Was there an patent legal assistant present: No Estimated blood loss (cc): 75 Tourniquet Time (Minutes): 120 Specimen: none Condition: stable Disposition: PACU Procedure in Detail: Indications: 48-year-old diabetic neuropathic female who is admittedly noncompliant with weightbearing status after her ankle fracture ORIF and sustained further ankle fracture/dislocation of the right lower extremity due to walking on her ankle. No guarantees were made that the patient's leg would be able to be salvaged and it was explained to the patient that she could end up requiring an amputation of her leg due to her noncompliance and this surgery would be her last chance at salvaging her right lower extremity. Nature of the procedure, risks versus benefits potential complications consequences of surgery and her condition discussed at length. She understood and it was repeatedly explained it is imperative that she remain nonweightbearing to the right lower extremity and control her blood sugar otherwise she is looking at an amputation of her leg. All of her questions have been answered and the informed consent was signed. Patient was taken from the preoperative holding area, given a popliteal block by anesthesia and then brought into the operating room and placed on the operating room table in the supine position. A thigh tourniquet was applied and inflated to 300 mmHg. The right lower extremity was scrubbed prepped and draped in the usual sterile fashion and the following procedure began. Removal of hardware right ankle. Attention was direct lateral aspect of the patient's right ankle where toby were removed and a skin incision made over the previous incision site and blunt dissection was carried out down to the level of the hardware which was disrupted and the soft tissue was freed surrou nding the hardware and the lateral ankle plate and screws were removed. The plate was broken. All of the hardware was removed from the lateral ankle. Attention was then directed medially stab incision was made and K wire inserted into the cannulated screw and the screw was removed. Right ankle and subtalar joint arthrodesis. Attention was then directed to the proximal aspect of the fibula through the lateral incision which was lengthened proximally and distally. A sagittal saw was used to resect the fibula and the ankle joint was identified as well as the subtalar joint. Using a combination of the curettes, osteotomes and rotary bur the cartilage was removed from the tibiotalar joint as well as the subtalar joint. In-fuse was applied to the ankle joint and subtalar joint fusion zone. Bleeding cancellous bone was present and the ankle joint and subtalar joint and the joints were fenestrated with a drill. They were held in alignment and temporarily pinned. Next under fluoroscopy a guidewire was thrown and using standard technique a 11 mm Triway [id number] intramedullary nail was inserted using standard technique. Appropriate screws were placed and clinically good apposition was obtained of the fusion zones with the ankle in neutral position and alignment. C-arm was utilized to confirm position and alignment under fluoroscopy. The tourniquet was deflated. The bovie was used to cauterize any bleeders. Adequate hemostasis was present. Deep and subcutaneous tissue were reapproximated with 0-Vicryl and skin reapproximated with toby and 2-0 Prolene. Patient tolerated anesthesia procedure well. Postoperative bandaging included Xeroform, 4 x 4 gauze Kerlix and an adequately padded posterior splint. Prior to surgery and again after surgery was discussed with the patient that she is to remain nonweightbearing to the right lower extremity and she demonstrated understanding by nodding her head. She will return to the floor.
--- NOTE | 2019-03-06 21:11 | Anesthesia Evaluation Post Op ---
Date of Encounter: 03/06/19 Time of Encounter: 21:10 - Vital Signs Vital Signs: Vital Signs/O2 Sat, Most Current Temp Pulse Resp BP Pulse Ox 98.7 F 63 14 144/71 97 03/06/19 20:46 03/06/19 21:06 03/06/19 21:06 03/06/19 21:06 03/06/19 21:06 - Lungs Lungs: Clear Ascult./Percussion - Airway Airway: Non-obstructed - Cardiovascular Regular Rate - Mental Status Mental Status: Alert & Oriented, Answers Appropriately - Pain Pain Scale: 0 Pain Scale used: Numeric (1 - 10) - Nausea Vomiting Nausea Vomiting: Not Present - Hydration Hydration: Ice chips, Has not voided - Discharge PostOp Status: Transfer Patient to floor
[2019-03-06] MEDS ORDERED: *HR* Promethazine 25 MG/ML VIAL IVP PRN (21:31)
[2019-03-06] MEDS ORDERED: Naloxone 0.4 MG/ML INJ IVP PRN (21:31)
[2019-03-06] MEDS ORDERED: Ondansetron 4 MG/2 ML VIAL IVP PRN (21:31)
[2019-03-06] MEDS ORDERED: *HR* Dextrose 50 % in Water (Syg) 50 ML SYRINGE IVP PRN (21:31)
[2019-03-06] MEDS ORDERED: Dextrose Gel 15 GM/37.5 ML TUBE PO PRN ×2 (21:31)
[2019-03-06] MEDS ORDERED: D5% in Water 1,000 ML IVC PRN (21:31)
[2019-03-06] MEDS ORDERED: Nitroglycerin 0.4 MG TAB.SUBL SL PRN (21:31)
[2019-03-07 01:31] LABS: Basophils % 0.2 %; Eosinophils % 0.1 %; Hematocrit 33.9 % (35.3-44.9); Hemoglobin 10.6 g/dL (11.5-15.4); Lymphocytes # 0.7 K/mcL (0.6-4.6); Lymphocytes % 7.6 %; Mean Corpuscular HGB Conc 31.3 g/dL (31.6-35.5); Mean Corpuscular Hemoglobin 26.4 pg (28.0-33.3); Mean Corpuscular Volume 84.3 fL (83.0-100.0); Mean Platelet Volume 11.7 fL (9.4-12.4); Monocytes # 0.1 K/mcL (0.0-1.3); Monocytes % 1.3 %; Neutrophils # 7.8 K/mcL (1.6-8.9); Platelet Count 224 K/mcL (140-400); Red Blood Count 4.02 M/mcL (3.82-4.97); Red Cell Distribution Width 13.5 % (11.5-14.5); Segmented Neutrophils % 89.8 %
[2019-03-07 02:06] LABS: Calcium 8.9 mg/dL (8.6-10.3); Magnesium 1.7 mg/dL (1.6-2.6); Phosphorous 4.7 mg/dL (2.7-4.5); Potassium 4.7 mEq/L (3.5-5.1)
[2019-03-07] MEDS: *HR* Heparin 5,000 UNIT/ML VIAL SQ SCH ×3 (05:54→20:17)
[2019-03-07] MEDS: *HR* OxyCODONE/APAP 5/325 TABLET PO PRN ×2 (06:03→14:39)
[2019-03-07] MEDS: Insulin LISPRO 300 UNITS/3 ML VIAL SQ SCH ×4 (08:52→20:09)
[2019-03-07] MEDS: *HR* HYDROcodone/Acet 5/325 mg TABLET PO PRN ×2 (08:52→19:38)
[2019-03-07] MEDS: Doxycycline 100 MG CAPSULE PO SCH ×2 (08:52→20:09)
[2019-03-07] MEDS: Furosemide 40 MG TABLET PO SCH ×2 (08:53→16:58)
[2019-03-07] MEDS: Pregabalin 50 MG CAPSULE PO SCH ×2 (08:54→16:58)
--- NOTE | 2019-03-07 09:46 | Podiatry Progress Note ---
Date of Encounter: 03/07/19 Time of Encounter: 08:30 - Assessment and Plan (1) Closed trimalleolar fracture of right ankle Current Visit: Yes Status: Acute Uncontrolled diabetic neuropathic female with right trimalleolar ankle fracture/dislocation revision with intramedullary nail Says her right foot/ankle/leg hurt some. No falls. Says she is not going to put weight on her right foot. Says she is going to use a knee scooter which she has to stay off her right foot. No calf pain with squeeze. No strikethrough on bandage. Posterior splint is clean dry and intact. Reviewed with patient her surgical procedure and intraoperative findings and course of recovery. We discussed again as we have multiple times the importance of remaining nonweigh tbearing to the right lower extremity otherwise her surgery will not heal and she will ultimately lose her leg. Patient would benefit from ECF stay. Qualifiers: Encounter type: subsequent encounter Fracture healing: with nonunion Qualified Code(s): S82.851K - Displaced trimalleolar fracture of right lower leg, subsequent encounter for closed fracture with nonunion Subjective Principal diagnosis: s/p ORIF right ankle fracture Interval history: . Objective - Vital Signs Vital Signs: Vital Signs Temp Pulse Resp BP Pulse Ox 03/07/19 06:35 97.4 F L 75 16 145/77 92 03/07/19 00:18 97.5 F L 67 15 130/76 95 03/06/19 23:45 98.7 F 88 16 132/84 96 03/06/19 22:45 98.5 F 76 16 142/88 95 03/06/19 22:15 98.3 F 68 16 129/78 96 03/06/19 21:45 98.4 F 78 16 142/89 95 03/06/19 21:16 98.4 F 61 14 144/80 99 03/06/19 21:06 63 14 144/71 97 03/06/19 20:56 62 14 152/80 94 03/06/19 20:46 98.7 F 65 16 130/86 91 03/06/19 17:38 61 140/78 99 03/06/19 17:34 63 145/81 99 03/06/19 15:34 97.9 F 60 17 152/86 92 03/06/19 10:50 97.8 F 60 12 127/82 98 Intake and Output 03/06/19 03/07/19 03/07/19 23:59 07:59 15:59 Output Total 75 / 75 300 / 300 Balance -75 / -75 -300 / -300 Output: Urine 300 / 300 Estimated Blood Loss 75 / 75 Other: # Voids 1 Blood Glucose* 135 331 - Lab Result Diagrams: 03/07/19 01:05 03/07/19 01:05 Labs: Abnormal lab results Hgb 10.6 g/dL (11.5-15.4) L 03/07/19 01:05 Hct 33.9 % (35.3-44.9) L 03/07/19 01:05 MCH 26.4 pg (28.0-33.3) L 03/07/19 01:05 MCHC 31.3 g/dL (31.6-35.5) L 03/07/19 01:05 D-Dimer 1126 ng/mLFEU (0-500) H 03/03/19 02:41 Sodium 134 mEq/L (136-145) L 03/07/19 01:05 Chloride 95 mEq/L (98-107) L 03/07/19 01:05 BUN 32 mg/dL (6-20) H 03/07/19 01:05 Creatinine 1.24 mg/dL (0.60-1.20) H 03/07/19 01:05 Est GFR ( Amer) 56 (> 60) L 03/07/19 01:05 Est GFR (Non-Af Amer) 46 (> 60) L 03/07/19 01:05 Glucose 374 mg/dL (70-105) H 03/07/19 01:05 POC Glucose 331 mg/dL (70-99) H 03/07/19 07:33 Hemoglobin A1c 12.7 % (-5.6) H 03/02/19 05:53 Phosphorus 4.7 mg/dL (2.7-4.5) H 03/07/19 01:05 Microbiology, Last 48 Hours 03/01/19 01:33 Anaerobic Culture - Final Right Fifth Toe No anaerobes were recovered. Consult Discharge Plan - Plan Additional Instructions: Follow up in podiatry office in 1 week. Please make appointment prior to d/c. Referrals: Tracy Rizzo ENGINE ROOM HELPER [Primary Care Provider] -
--- NOTE | 2019-03-07 14:27 | Internal Med Progress Note ---
Hospitalist Progress Note - Encounter Date of Encounter: 03/07/19 Time of Encounter: 14:27 - Subjective Interval History: Postop day 1. Pain is appropriately controlled. PT OT on board. Labs reviewed. High blood glucose level. Levemir was put on hold as patient was in operating room last evening Denies fever chills nausea vomiting chest pain shortness of breath abdominal pain urinary or bowel complaint - Exam Vitals: Temp Pulse Resp BP Pulse Ox 97.4 F L 75 16 145/77 92 03/07/19 06:35 03/07/19 06:35 03/07/19 06:35 03/07/19 06:35 03/07/19 06:35 Exam: GEN: NAD , alert awake oriented CVS: RRR. S1, S2, No m/r/g RESP: CTAB ABD: Soft, NT, ND, +BS EXT: No edema. 2+ DP. Right lower extremity wrapped status post surgery NEURO: Nonfocal neurological deficit - Assessment and Plan (1) Closed trimalleolar fracture of right ankle Current Visit: Yes Status: Acute Assessment and Plan: Patient has revised surgery of trimalleolar ankle fracture with dislocation with intramedullary nail, postop day 1. Pain control. Stopped IV fluid. Tolerating oral diet. PT OT on board. Plan to discharge once social staff worker back on the Saturday . DVT prophylaxis with heparin subcutaneous Status post ORIF. Was not compliant with nonweightbearing instructions and ended up with subluxation at the area of the previous ORIF. (2) HTN (hypertension) Current Visit: Yes Status: Chronic Assessment and Plan: Continue home meds (3) Hypothyroid Current Visit: Yes Status: Chronic Assessment and Plan: Continue home meds (4) Chest pain Current Visit: Yes Status: Acute Assessment and Plan: Stress test negative. Chest chest pain free. (5) Insulin dependent diabetes mellitus Current Visit: Yes Status: Chronic Assessment and Plan: Continue sliding scale insulin. On Levemir 45 units daily at bedtime. Continue Accu-Cheks. Diabetic diet. High blood glucose level today as Levemir was put on hold by covering provider last night as patient was in OR. Change sliding scale to high SSI. Will resume Levemir tonight. (6) CHF (congestive heart failure) Current Visit: Yes Status: Acute Assessment and Plan: Stable continue home meds. (7) Diabetic foot ulcer Current Visit: Yes Status: Acute Assessment and Plan: Cultures are positive for strep agalactiae. Patient has been started on doxycycline since admission. - Time Spent with Patient Total time spent is greater than 50% in coordination of care (as documented) at patient's floor/unit and/or counseling patient: 25 - 35 minutes Plan of Care Discussed with: patient Internal Medicine: Result - Labs CBC & Chem 7: 03/07/19 01:05 03/07/19 01:05 Labs: Short CBC 03/07/19 Range/Units 01:05 WBC 8.6 (4.3-11.1) K/mcL Hgb 10.6 L (11.5-15.4) g/dL Hct 33.9 L (35.3-44.9) % Plt Count 224 (140-400) K/mcL Neutrophils # 7.8 (1.6-8.9) K/mcL BMP 03/07/19 01:05 Sodium 134 L Potassium 4.7 D Chloride 95 L Carbon Dioxide 28 BUN 32 H Creatinine 1.24 H Glucose 374 H Calcium 8.9 - ABG Interpretation ABG results: PT/INR, D-dimer D-Dimer 1126 ng/mLFEU (0-500) H 03/03/19 02:41 - Impressions Impressions Ankle X-Ray 03/04/19 09:12 IMPRESSION: Postsurgical changes as described above. Medial subluxation of the tibial plafond with respect to the talus. D/ / 03/04/2019 10:55:27 Kofi Urbina MD / Michelle Suarez Interpreting Provider: Kofi Urbina MD Fluoroscopy 03/06/19 18:05 IMPRESSION: Please refer to the operative note for a description of the procedure. D/ / Laurent Campos MD / Laurent Campos MD Interpreting Provider: Laurent Campos MD Consult Discharge Plan - Plan Additional Instructions: Follow up in podiatry office in 1 week. Please make appointment prior to d/c. Referrals: Tracy Rizzo, [employer] [Primary Care Provider] - (1) Closed trimalleolar fracture of right ankle Qualifiers: Encounter type: subsequent encounter Fracture healing: with nonunion Qualified Code(s): S82.851K - Displaced trimalleolar fracture of right lower leg, subsequent encounter for closed fracture with nonunion (2) HTN (hypertension) Qualifiers: Hypertension type: essential hypertension Qualified Code(s): I10 - Essential (primary) hypertension (3) Hypothyroid Qualifiers: Hypothyroidism type: unspecified Qualified Code(s): E03.9 - Hypothyroidism, unspecified (4) Chest pain Qualifiers: Chest pain type: unspecified Qualified Code(s): R07.9 - Chest pain, unspecified (6) CHF (congestive heart failure) Qualifiers: Heart failure chronicity: chronic (7) Diabetic foot ulcer Qualifiers: Diabetic foot ulcer location: toe Diabetes mellitus type: type 2 Laterality: right Non-pressure ulcer stage: unspecified non-pressure ulcer stage Qualified Code(s): E11.621 - Type 2 diabetes mellitus with foot ulcer; L97.519 - Non- pressure chronic ulcer of other part of right foot with unspecified severity
[2019-03-07] MEDS: levoFLOXacin 750 MG TABLET PO SCH (20:09)
[2019-03-07] MEDS: Insulin DETEMIR 100 UNIT/ML X5UNITS SQ SCH (20:10)
[2019-03-07] MEDS ORDERED: Insulin LISPRO 300 UNITS/3 ML VIAL SQ SCH (21:00)
[2019-03-07] MEDS: *HR* Morphine 2 MG/ML SYRINGE IVP PRN (23:20)
[2019-03-08] MEDS: *HR* Morphine 2 MG/ML SYRINGE IVP PRN (02:30)
[2019-03-08] MEDS: *HR* OxyCODONE/APAP 5/325 TABLET PO PRN ×3 (06:08→20:46)
[2019-03-08] MEDS: *HR* Heparin 5,000 UNIT/ML VIAL SQ SCH ×3 (06:09→20:46)
[2019-03-08] MEDS: Insulin LISPRO 300 UNITS/3 ML VIAL SQ SCH ×7 (07:23→20:47)
[2019-03-08] MEDS: Furosemide 40 MG TABLET PO SCH (09:47)
[2019-03-08] MEDS: Pregabalin 50 MG CAPSULE PO SCH ×2 (09:48→17:10)
[2019-03-08] MEDS: *HR* HYDROcodone/Acet 5/325 mg TABLET PO PRN ×3 (09:52→23:34)
--- NOTE | 2019-03-08 14:24 | Internal Med Progress Note ---
Hospitalist Progress Note - Encounter Date of Encounter: 03/08/19 Time of Encounter: 14:21 - Subjective Interval History: Patient resting on bed. Complaint of pain in operated leg but controlled on current medicine. Better controlled blood glucose level now. A.m. labs ordered Denies fever chills nausea vomiting chest pain shortness of breath abdominal pain urinary bowel complaint - Exam Vitals: Temp Pulse Resp BP Pulse Ox 97.9 F 62 18 115/75 93 03/08/19 11:13 03/08/19 11:13 03/08/19 11:13 03/08/19 11:13 03/08/19 11:13 Exam: GEN: NAD , alert awake oriented CVS: RRR. S1, S2, No m/r/g RESP: CTAB ABD: Soft, NT, ND, +BS EXT: No edema. 2+ DP. Right lower extremity wrapped status post surgery NEURO: Nonfocal neurological deficit - Assessment and Plan (1) Closed trimalleolar fracture of right ankle Current Visit: Yes Status: Acute Assessment and Plan: Patient has revised surgery of trimalleolar ankle fracture with dislocation with intramedullary nail, postop day 2. Pain reasonably controlled . Stopped IV fluid. Tolerating oral diet. PT OT on board. Plan to discharge once psychiatric social worker supervisor back on the Saturday . DVT prophylaxis with heparin subcutaneous Status post ORIF. Was not compliant with nonweightbearing instructions and ended up with subluxation at the area of the previous ORIF. (2) HTN (hypertension) Current Visit: Yes Status: Chronic Assessment and Plan: Continue home meds (3) Hypothyroid Current Visit: Yes Status: Chronic Assessment and Plan: Continue home meds (4) Chest pain Current Visit: Yes Status: Acute Assessment and Plan: Stress test negative. Chest chest pain free. (5) Insulin dependent diabetes mellitus Current Visit: Yes Status: Chronic Assessment and Plan: Continue sliding scale insulin. On Levemir 45 units daily at bedtime. Continue Accu-Cheks. Diabetic diet. Better controlled blood glucose level now after resuming home medicine. Accu- Chek change to the low sliding scale. (6) CHF (congestive heart failure) Current Visit: Yes Status: Acute Assessment and Plan: Stable continue home meds. Does not appear in acute exacerbation Echo done on March 03 2019 Impressions: LVEF 55-60%. Mildly dilated left ventricle. Moderately dilated left atrium. Mild segmental left ventricular systolic dysfunction. The IVC is dilated. Left Ventricular Wall Motion: Rest Echo Findings The apical anterior wall was hypokinetic. All other wall segments showed normal motion. (7) Diabetic foot ulcer Current Visit: Yes Status: Acute Assessment and Plan: Cultures are positive for strep agalactiae on 03/01/2019. Patient has been started on doxycycline since admission. (8) DVT prophylaxis Current Visit: No Status: Acute Assessment and Plan: Heparin subcutaneous - Time Spent with Patient Total time spent is greater than 50% in coordination of care (as documented) at patient's floor/unit and/or counseling patient: 25 - 35 minutes Plan of Care Discussed with: patient Internal Medicine: Result - Labs CBC & Chem 7: 03/07/19 01:05 03/07/19 01:05 - ABG Interpretation ABG results: PT/INR, D-dimer D-Dimer 1126 ng/mLFEU (0-500) H 03/03/19 02:41 - Impressions Impressions Foot X-Ray 03/04/19 10:08 IMPRESSION: 1. Soft tissue gas in the 5th digit. No acute osseous abnormality in the forefoot. 2. Disruption/dislocation of the ankle better characterized on the concurrent ankle radiographs. D/ / 03/04/2019 11:10:02 Mike Sprague MD / eric Interpreting Provider: Mike Sprague MD Consult Discharge Plan - Plan Additional Instructions: Follow up in podiatry office in 1 week. Please make appointment prior to d/c. Referrals: Tracy Rizzo, [employer] [Primary Care Provider] - (1) Closed trimalleolar fracture of right ankle Qualifiers: Encounter type: subsequent encounter Fracture healing: with nonunion Qualified Code(s): S82.851K - Displaced trimalleolar fracture of right lower leg, subsequent encounter for closed fracture with nonunion (2) HTN (hypertension) Qualifiers: Hypertension type: essential hypertension Qualified Code(s): I10 - Essential (primary) hypertension (3) Hypothyroid Qualifiers: Hypothyroidism type: unspecified Qualified Code(s): E03.9 - Hypothyroidism, unspecified (4) Chest pain Qualifiers: Chest pain type: unspecified Qualified Code(s): R07.9 - Chest pain, un specified (6) CHF (congestive heart failure) Qualifiers: Heart failure type: combined systolic and diastolic Heart failure chronicity: chronic Qualified Code(s): I50.42 - Chronic combined systolic (congestive) and diastolic (congestive) heart failure (7) Diabetic foot ulcer Qualifiers: Diabetic foot ulcer location: toe Diabetes mellitus type: type 2 Laterality: right Non-pressure ulcer stage: unspecified non-pressure ulcer stage Qualified Code(s): E11.621 - Type 2 diabetes mellitus with foot ulcer; L97.519 - Non- pressure chronic ulcer of other part of right foot with unspecified severity
[2019-03-08] MEDS ORDERED: traZODone 50 MG TABLET PO PRN (14:31)
[2019-03-08] MEDS: levoFLOXacin 750 MG TABLET PO SCH (20:46)
[2019-03-08] MEDS: Insulin DETEMIR 100 UNIT/ML X5UNITS SQ SCH (20:47)
[2019-03-09] MEDS: *HR* OxyCODONE/APAP 5/325 TABLET PO PRN ×4 (03:16→21:16)
[2019-03-09] MEDS: *HR* Heparin 5,000 UNIT/ML VIAL SQ SCH ×3 (06:09→21:16)
[2019-03-09] MEDS: *HR* HYDROcodone/Acet 5/325 mg TABLET PO PRN ×2 (06:10→12:23)
[2019-03-09 06:21] LABS: Basophils % 0.3 %; Eosinophils # 0.1 K/mcL (0.0-0.6); Hematocrit 29.8 % (35.3-44.9); Hemoglobin 9.3 g/dL (11.5-15.4); Immature Granulocytes % 0.5 % (0-4); Lymphocytes # 2.4 K/mcL (0.6-4.6); Lymphocytes % 28.1 %; Mean Corpuscular HGB Conc 31.2 g/dL (31.6-35.5); Mean Corpuscular Hemoglobin 26.8 pg (28.0-33.3); Mean Corpuscular Volume 85.9 fL (83.0-100.0); Mean Platelet Volume 11.7 fL (9.4-12.4); Monocytes # 1.1 K/mcL (0.0-1.3); Monocytes % 12.9 %; Platelet Count 238 K/mcL (140-400); Red Blood Count 3.47 M/mcL (3.82-4.97); Red Cell Distribution Width 13.7 % (11.5-14.5); Segmented Neutrophils % 57.2 %
[2019-03-09 06:45] LABS: Calcium 8.5 mg/dL (8.6-10.3); Magnesium 1.6 mg/dL (1.6-2.6); Potassium 3.9 mEq/L (3.5-5.1)
[2019-03-09] MEDS: Insulin LISPRO 300 UNITS/3 ML VIAL SQ SCH ×4 (08:37→21:25)
[2019-03-09] MEDS: Aspirin Enteric Coated 81 MG Tablet PO SCH (08:59)
[2019-03-09] MEDS: Pregabalin 50 MG CAPSULE PO SCH ×2 (08:59→17:27)
[2019-03-09] MEDS ORDERED: Spironolactone 25 MG TABLET PO SCH (09:00)
--- NOTE | 2019-03-09 15:13 | Podiatry Progress Note ---
Date of Encounter: 03/09/19 Time of Encounter: 13:00 - Assessment and Plan (1) Closed trimalleolar fracture of right ankle Current Visit: Yes Status: Acute s/p ORIF right trimalleolar ankle fracture on 03/01 with revision and Removal of right ankle hardware, right ankle joint fusion, right subtalar joint fusion 03/05 with . PLAN: Assessed at bedside Dressing removed, all areas appear to be healing without complication all surgical lines well approximated with minimal edema and no erythema. No clinical signs of infection noted Patient to be discharged to LTCF, pending placement Elevate and ice as needed for pain NWB to RLE at all times Patient will need to be followed and see in podiatry clinic in 1 week following discharge, please make appointment prior to discharge with Call sooner with any fevers, chills, n/v fls or dressing saturation ED with calf pain or sob Cleansed all surgical lines with saline, pat dry Applied adaptic, 4x4, cast padding, posterior splint, cast padding and DOUG Patient notes comfort toes warm, cap refill <3 seconds. Patient denies any complaints to cast Leave in place until post op visit. There is healing noted to lesion of toe #5 right, there is sloughing of devitalized tissue surrounding toe with exposure of healthy granulation tissue below. Minimal erythema or edema. No drainage. No appearance of infection noted. continue to monitor. Patient will need to be discharged on DVT prophylaxis (xarelto or lovenox) [id number] and pain medication for pain control Qualifiers: Encounter type: subsequent encounter Fracture healing: with nonunion Qualified Code(s): S82.851K - Displaced trimalleolar fracture of right lower leg, subsequent encounter for closed fracture with nonunion (2) Diabetic foot ulcer Current Visit: Yes Status: Acute Assessment: Stable healing jones stage II diabetic ulceration sub mt head #2 right foot PLAN Healing well and without complication No appearance of infection Chronic ulceration Cleansed with saline Applied adaptic, 4x4 and bulk dressing leave dressing intact Continue to monitor. Qualifiers: Diabetic foot ulcer location: toe Diabetes mellitus type: type 2 Laterality: right Non-pressure ulcer stage: unspecified non-pressure ulcer stage Qualified Code(s): E11.621 - Type 2 diabetes mellitus with foot ulcer; L97.519 - Non-pressure chronic ulcer of other part of right foot with unspecified severity Subjective Principal diagnosis: s/p ORIF right ankle fracture Interval history: s/p ORIF right trimalleolar ankle fracture on 03/01 with revision and Removal of right ankle hardware, right ankle joint fusion, right subtalar joint fusion 03/05 with . Patient resting comfortably on arrival. States pain is 8/10 to ankle at this time but she is able to rest ok. Patient states she is waiting on to tell her which LTCF accepts her insurance. Patient denies any fevers, chills, n/v or fls. Denies any calf pain or sob. Patient dressing CDI and elevated with ice behind her knee. Objective - Vital Signs Vital Signs: Vital Signs Temp Pulse Resp BP Pulse Ox 03/09/19 12:03 98.2 F 69 17 119/66 92 03/09/19 07:03 98.2 F 63 18 122/75 93 03/08/19 22:31 97.7 F 77 16 112/73 95 03/08/19 20:46 95 03/08/19 18:55 97.8 F 77 16 112/73 96 03/08/19 16:23 97.7 F 77 16 112/73 95 Intake and Output 03/08/19 03/09/19 03/09/19 23:59 07:59 15:59 Intake Total 500 / 500 900 / 900 240 / 240 Balance 500 / 500 900 / 900 240 / 240 Intake: Oral 500 / 500 900 / 900 240 / 240 Other: Meal Dinner Lunch Percent of Meal Consumed 100% 100% # Voids 1 Blood Glucose* 122 108 224 - Exam Exam: Podiatry General Exam: General appearance: alert awake oriented X 3. Calm and pleasant, no acute distress.. Vascular: Pedal pulses +2/4 DP/PT , No evidence of cyanosis, pallor or rubor, Edema graded at 1+/4, Skin Temperature warm, No calf pain with manual compression. capillary refill time is immediate to digits. Neurologic: Sensation intact with light touch to foot. . Postop Exam: S/P Sutures and toby intact to multiple incision lines, no signs of dehiscence. No open area, no drainage, no odor, no erythema, no streaking. Minimal edema. Appears to be healing well and without complication at this time. Foot in good alignment at this time There is a known chronic diabetic foot ulceration sub mt head #2 right. This is healing and without complcation at this time 0.4cmx0.4cmx0.2cm, no drainage , no surrounding edema, erythema or warmth. No appearance of infection There was a ulceration/bullous lesion to toe #5 right which is now healing. There is sloughing of devitalized tissue revealing healthy granulation tissue below. There is scaling skin noted to entire toe. No drainage. minimal edema and erythema noted to toe. Continue to monitor. Will cover in adaptic and continue to let heal. - Lab Result Diagrams: 03/09/19 05:44 03/09/19 05:44 Labs: Abnormal lab results RBC 3.47 M/mcL (3.82-4.97) L 03/09/19 05:44 Hgb 9.3 g/dL (11.5-15.4) L 03/09/19 05:44 Hct 29.8 % (35.3-44.9) L 03/09/19 05:44 MCH 26.8 pg (28.0-33.3) L 03/09/19 05:44 MCHC 31.2 g/dL (31.6-35.5) L 03/09/19 05:44 D-Dimer 1126 ng/mLFEU (0-500) H 03/03/19 02:41 Carbon Dioxide 31 mEq/L (23-29) H 03/09/19 05:44 BUN 41 mg/dL (6-20) H 03/09/19 05:44 Est GFR ( Amer) 58 (> 60) L 03/09/19 05:44 Est GFR (Non-Af Amer) 48 (> 60) L 03/09/19 05:44 BUN/Creatinine Ratio 34 (6-26) H 03/09/19 05:44 Glucose 110 mg/dL (70-105) H 03/09/19 05:44 POC Glucose 108 mg/dL (70-99) H 03/09/19 07:06 Hemoglobin A1c 12.7 % (-5.6) H 03/02/19 05:53 Calcium 8.5 mg/dL (8.6-10.3) L 03/09/19 05:44 Phosphorus 4.7 mg/dL (2.7-4.5) H 03/07/19 01:05 Consult Discharge Plan - Plan Additional Instructions: Follow up in podiatry office in 1 week. Please make appointment prior to d/c. Referrals: Tracy Rizzo CNP [Primary Care Provider] -
--- NOTE | 2019-03-09 15:58 | Internal Med Progress Note ---
Hospitalist Progress Note - Encounter Date of Encounter: 03/09/19 Time of Encounter: 15:58 - Subjective Interval History: Patient sitting on chair watching TV. Complaint of pain at operative site but somewhat reasonably controlled on current medicine. Review the lab. Review of the consult note. Patient has intermittent PVCs on telemetry. Denies fever chills nausea vomiting dizziness chest pain shortness of breath abdominal pain diarrhea - Exam Vitals: Temp Pulse Resp BP Pulse Ox 98.2 F 69 17 119/66 92 03/09/19 12:03 03/09/19 12:03 03/09/19 12:03 03/09/19 12:03 03/09/19 12:03 Exam: GEN: NAD , alert awake oriented CVS: RRR. S1, S2, No m/r/g RESP: CTAB ABD: Soft, NT, ND, +BS EXT: No edema. 2+ DP. Right lower extremity wrapped status post surgery NEURO: No focal neurological deficit - Assessment and Plan (1) Closed trimalleolar fracture of right ankle Current Visit: Yes Status: Acute Assessment and Plan: Patient has revised surgery of trimalleolar ankle fracture with dislocation with intramedullary nail, postop day 3. Pain reasonably controlled . Stopped IV fluid. Tolerating oral diet. PT OT on board and recommending for short-term rehabilitation. chore worker on board to find the place based on insurance coverage. Continue DVT prophylaxis with heparin subcutaneous. Is stopped IV morphine, [place]. Increased frequency of Percocet 5 325 every 4 hours when necessary pain management s/p ORIF right trimalleolar ankle fracture on 03/01 with revision and Removal of right ankle hardware, right ankle joint fusion, right subtalar joint fusion 03/05 with . Plan to discharge whenever bed is available in rehabilitation facility. (2) HTN (hypertension) Current Visit: Yes Status: Chronic Assessment and Plan: Continue home meds (3) Hypothyroid Current Visit: Yes Status: Chronic Assessment and Plan: Continue home meds (4) Chest pain Current Visit: Yes Status: Acute Assessment and Plan: Stress test negative. Chest chest pain free. (5) Insulin dependent diabetes mellitus Current Visit: Yes Status: Chronic Assessment and Plan: Continue sliding scale insulin. On Levemir 45 units daily at bedtime. Continue Accu-Cheks. Diabetic diet. Better controlled blood glucose level now after resuming home medicine. Accu- Chek change to the low sliding scale. (6) CHF (congestive heart failure) Current Visit: Yes Status: Acute Assessment and Plan: Stable continue home meds. Does not appear in acute exacerbation. Patient has intermittent PVCs in telemetry. EKG ordered with no acute finding except PVC and compared with the EKG on admission. Patient denies any cardiac symptoms. Continue to monitor. Echo done on March 03 2019 Impressions: LVEF 55-60%. Mildly dilated left ventricle. Moderately dilated left atrium. Mild segmental left ventricular systolic dysfunction. The IVC is dilated. Left Ventricular Wall Motion: Rest Echo Findings The apical anterior wall was hypokinetic. All other wall segments showed normal motion. (7) Diabetic foot ulcer Current Visit: Yes Status: Acute Assessment and Plan: Cultures are positive for strep agalactiae on 03/01/2019. Patient has been started on doxycycline since admission. (8) DVT prophylaxis Current Visit: No Status: Acute Assessment and Plan: Heparin subcutaneous - Time Spent with Patient Total time spent is greater than 50% in coordination of care (as documented) at patient's floor/unit and/or counseling patient: 25 - 35 minutes Plan of Care Discussed with: social work Internal Medicine: Result - Labs CBC & Chem 7: 03/09/19 05:44 03/09/19 05:44 Labs: Short CBC 03/09/19 Range/Units 05:44 WBC 8.7 (4.3-11.1) K/mcL Hgb 9.3 L (11.5-15.4) g/dL Hct 29.8 L (35.3-44.9) % Plt Count 238 (140-400) K/mcL Neutrophils # 5.0 (1.6-8.9) K/mcL BMP 03/09/19 05:44 Sodium 137 Potassium 3.9 Chloride 98 Carbon Dioxide 31 H BUN 41 H Creatinine 1.20 Glucose 110 H Calcium 8.5 L - ABG Interpretation ABG results: PT/INR, D-dimer D-Dimer 1126 ng/mLFEU (0-500) H 03/03/19 02:41 - Impressions Impressions Fluoroscopy 03/01/19 00:00 IMPRESSION: Right ankle open reduction and internal fixation with fluoroscopic guidance and spot images as above. D/ / Sancho Brady MD / Sancho Brady MD Interpreting Provider: Sancho Brady MD Consult Discharge Plan - Plan Additional Instructions: Follow up in podiatry office in 1 week. Please make appointment prior to d/c. Referrals: Tracy Rizzo, OCEANOGRAPHER GEOLOGICAL [Primary Care Provider] - (1) Closed trimalleolar fracture of right ankle Qualifiers: Encounter type: subsequent encounter Fracture healing: with nonunion Qualified Code(s): S82.851K - Displaced trimalleolar fracture of right lower leg, subsequent encounter for closed fracture with nonunion (2) HTN (hypertension) Qualifiers: Hypertension type: essential hypertension Qualified Code(s): I10 - Essential (primary) hypertension (3) Hypothyroid Qualifiers: Hypothyroidism type: unspecified Qualified Code(s): E03.9 - Hypothyroidism, unspecified (4) Chest pain Qualifiers: Chest pain type: unspecified Qualified Code(s): R07.9 - Chest pain, unspec ified (6) CHF (congestive heart failure) Qualifiers: Heart failure type: combined systolic and diastolic Heart failure chronicity: chronic Qualified Code(s): I50.42 - Chronic combined systolic (congestive) and diastolic (congestive) heart failure (7) Diabetic foot ulcer Qualifiers: Diabetic foot ulcer location: toe Diabetes mellitus type: type 2 Laterality: right Non-pressure ulcer stage: unspecified non-pressure ulcer stage Qualified Code(s): E11.621 - Type 2 diabetes mellitus with foot ulcer; L97.519 - Non- pressure chronic ulcer of other part of right foot with unspecified severity
[2019-03-09] MEDS: Insulin DETEMIR 100 UNIT/ML X5UNITS SQ SCH (21:16)
[2019-03-09] MEDS: levoFLOXacin 750 MG TABLET PO SCH (21:16)
[2019-03-10] MEDS: *HR* Heparin 5,000 UNIT/ML VIAL SQ SCH (05:12)
[2019-03-10] MEDS: *HR* OxyCODONE/APAP 5/325 TABLET PO PRN ×2 (05:12→13:50)
[2019-03-10] MEDS: Pregabalin 50 MG CAPSULE PO SCH (08:56)
[2019-03-10] MEDS: Aspirin Enteric Coated 81 MG Tablet PO SCH (08:57)
[2019-03-10] MEDS: Insulin LISPRO 300 UNITS/3 ML VIAL SQ SCH ×2 (08:57→12:31)
[2019-03-10 09:08] LABS: Basophils % 0.3 %; Eosinophils # 0.1 K/mcL (0.0-0.6); Eosinophils % 0.9 %; Hematocrit 31.7 % (35.3-44.9); Hemoglobin 9.8 g/dL (11.5-15.4); Immature Granulocytes % 0.4 % (0-4); Lymphocytes # 1.7 K/mcL (0.6-4.6); Lymphocytes % 21.7 %; Mean Corpuscular HGB Conc 30.9 g/dL (31.6-35.5); Mean Corpuscular Volume 87.3 fL (83.0-100.0); Mean Platelet Volume 11.2 fL (9.4-12.4); Monocytes # 0.6 K/mcL (0.0-1.3); Neutrophils # 5.5 K/mcL (1.6-8.9); Platelet Count 241 K/mcL (140-400); Red Blood Count 3.63 M/mcL (3.82-4.97); Red Cell Distribution Width 13.7 % (11.5-14.5); Segmented Neutrophils % 68.7 %
[2019-03-10 09:31] LABS: BUN/Creatinine Ratio 29 (6-26); Blood Urea Nitrogen 29 mg/dL (6-20); Calcium 8.7 mg/dL (8.6-10.3); Carbon Dioxide 31 mEq/L (23-29); Chloride 99 mEq/L (98-107); Glucose 139 mg/dL (70-105); Magnesium 1.8 mg/dL (1.6-2.6); Osmolality,Calculated 292 (280-300); Potassium 4.1 mEq/L (3.5-5.1); Sodium 137 mEq/L (136-145); eGFR For Non-African Americans 58 (> 60)
--- NOTE | 2019-03-10 12:14 | Discharge Summary ---
- NOTES TO OUTPATIENT PROVIDER Notes to Outpatient Provider: A follow-up appointment with director of placement as advised in 1 wk. Continue DVT prophylaxis Lovenox 40 mEq subcutaneous daily for 21 days. Follow with PCP in 5-7 days Orders not resulted at time of discharge: Pending orders 03/03/19 12:54 NM bridgette perf SPECT multi [NM] Routine 03/06/19 18:05 XR calcaneus 2V RT [XR] Routine XR tibia fibula RT [XR] Routine 03/09/19 15:49 EKG [ECG 12 lead ECG] [ECG] Routine Date of Encounter: 03/10/19 Time of Encounter: 12:08 - Discharge Diagnosis (1) Closed trimalleolar fracture of right ankle Priority: Primary Status: Acute Assessment and Plan: Patient has revised surgery of trimalleolar ankle fracture with dislocation with intramedullary nail, postop day 3. Pain reasonably controlled . Stopped IV fluid. Tolerating oral diet. PT OT on board and recommending for short-term rehabilitation. Continue DVT prophylaxis with lovenox subcutaneous for 21 days. stopped IV morphine, [place]. pain is controlled on Percocet 5 325 every 4 hours when necessary pain management s/p ORIF right trimalleolar ankle fracture on 03/01 with revision and Removal of right ankle hardware, right ankle joint fusion, right subtalar joint fusion 03/05 with . Plan to transfer patient to short-term rehabilitation facility in [facility]. Qualifiers: Encounter type: subsequent encounter Fracture healing: with nonunion Qualified Code(s): S82.851K - Displaced trimalleolar fracture of right lower leg, subsequent encounter for closed fracture with nonunion (2) HTN (hypertension) Priority: Secondary Status: Chronic Assessment and Plan: Continue home meds Qualifiers: Hypertension type: essential hypertension Qualified Code(s): I10 - Essential (primary) hypertension (3) Hypothyroid Priority: Secondary Status: Chronic Assessment and Plan: Continue home meds Qualifiers: Hypothyroidism type: unspecified Qualified Code(s): E03.9 - Hypothyroidism, unspecified (4) Chest pain Priority: Primary Status: Acute Assessment and Plan: Stress test negative. Chest chest pain free. Qualifiers: Chest pain type: unspecified Qualified Code(s): R07.9 - Chest pain, unspecified (5) Insulin dependent diabetes mellitus Priority: Secondary Status: Chronic Assessment and Plan: On Levemir 45 units daily at bedtime. Diabetic diet. (6) CHF (congestive heart failure) Priority: Secondary Status: Acute Assessment and Plan: Stable continue home meds. Does not appear in acute exacerbation. Echo done on March 03 2019 Impressions: LVEF 55-60%. Mildly dilated left ventricle. Moderately dilated left atrium. Mild segmental left ventricular systolic dysfunction. The IVC is dilated. Left Ventricular Wall Motion: Rest Echo Findings The apical anterior wall was hypokinetic. All other wall segments showed normal motion. Qualifiers: Heart failure type: combined systolic and diastolic Heart failure chronicity: chronic Qualified Code(s): I50.42 - Chronic combined systolic (congestive) and diastolic (congestive) heart failure (7) Diabetic foot ulcer Priority: Primary Status: Acute Assessment and Plan: Cultures are positive for strep agalactiae on 03/01/2019. Patient completed doxycycline 7 days course with last dose on 03/07/2019. Patient is still on Levaquin today will be ninth a day of antibiotic- plan to discharge patient on Levaquin to complete course for 14 days. Qualifiers: Diabetic foot ulcer location: toe Diabetes mellitus type: type 2 Laterality: right Non-pressure ulcer stage: unspecified non-pressure ulcer stage Qualified Code(s): E11.621 - Type 2 diabetes mellitus with foot ulcer; L97.519 - Non-pressure chronic ulcer of other part of right foot with unspecified severity (8) DVT prophylaxis Priority: Primary Status: Acute Assessment and Plan: DVT prophylaxis for total 21 days. Continue [facility] course: Ms. Woo is a 48 year old female got admitted for right trimalleolar ankle fracture. Ortho PTOT was consulted. Please see details in diagnosis section of discharge summary. Patient is being transferred to short-term rehabilitation facility signature. At the time of transfer patient is in a dynamically stable, pain is under control with current medication, tolerating oral diet. Discharge discussed with: patient, nurse, social work, case management, quantitative consultant - Time Spent with Patient Total time spent providing and/or coordinating discharge services: Time spent: Greater than 30 minutes - Discharge Medications Prescriptions: No Action Carvedilol [Coreg] 50 mg PO BID DULoxetine [Cymbalta] 30 mg PO BID Levothyroxine [Synthroid] 75 mcg PO DAILY Furosemide [Lasix] 40 mg PO BID #30 tablet Aspirin [Lo-Dose Aspirin EC] 81 mg PO DAILY Pregabalin [Lyrica] 200 mg PO QPM Pregabalin [Lyrica] 100 mg PO QAM Sacubitril/Valsartan 97/103 mg [Entresto 97 mg-103 mg Tablet] 1 tab PO BID Dulaglutide [Trulicity] 1.5 mg SQ MO Insulin Regular U-500 [HumuLIN R U-500] 60 unit SQ BID Doxycycline 100 mg PO BID Levofloxacin [Levaquin] 750 mg PO DAILY Spironolactone 25 mg PO QAM Trazodone HCl 100 mg PO HS PRN PRN Reason: Sleep Home Medications: Carvedilol [Coreg] 50 mg PO BID 03/29/16 [History] DULoxetine [Cymbalta] 30 mg PO BID 08/11/17 [History] Levothyroxine [Synthroid] 75 mcg PO DAILY 08/11/17 [History] Furosemide [Lasix] 40 mg PO BID #30 tablet 08/12/17 [Rx] Aspirin [Lo-Dose Aspirin EC] 81 mg PO DAILY 02/28/19 [History] Pregabalin [Lyrica] 200 mg PO QPM 02/28/19 [History] Doxycycline 100 mg PO BID 03/01/19 [History] Dulaglutide [Trulicity] 1.5 mg SQ MO 03/01/19 [History] Insulin Regular U-500 [HumuLIN R U-500] 60 unit SQ BID 03/01/19 [History] Levofloxacin [Levaquin] 750 mg PO DAILY 03/01/19 [History] Pregabalin [Lyrica] 100 mg PO QAM 03/01/19 [History] Sacubitril/Valsartan 97/103 mg [Entresto 97 mg-103 mg Tablet] 1 tab PO BID 03/01/19 [History] Spironolactone 25 mg PO QAM 03/02/19 [History] Trazodone HCl 100 mg PO HS PRN 03/02/19 [History] Allergies/Adverse Reactions: Allergy/AdvReac Type Severity Reaction Status Date / Time vancomycin Allergy Severe See Verified 03/02/19 13:23 Comments Date of admission: 02/28/19 19:14 Primary care physician: Tracy Rizzo CNP Consults: 03/01/19 02:25 Consult to Physical Therapy [CONS] Routine Comment: Evaluate, develop and implement POC Reason for Consult: s/p right ankle ORIF Does patient have active BEDREST order?: No Is patient medically & hemodynamically stable?: Yes 03/01/19 15:47 Consult to Preparation Room Worker [CONS] Routine Reason for SW Consult: rehab - Constitutional Vitals: Temp Pulse Resp BP Pulse Ox 98.7 F 69 16 131/82 96 03/10/19 11:17 03/10/19 11:17 03/10/19 11:17 03/10/19 11:17 03/10/19 11:17 Exam: GEN: NAD , alert awake oriented CVS: RRR. S1, S2, No m/r/g RESP: CTAB ABD: Soft, NT, ND, +BS EXT: No edema. 2+ DP. Right lower extremity wrapped status post surgery NEURO: No focal neurological deficit - Patient Status Disposition: Transfer Inpatient Rehab Fac Condition: Fair Overall status at discharge: patient is progressing back to baseline - Discharge Instructions Follow Up With: Tracy Rizzo CNP [Primary Care Provider] - Additional Instructions: Follow up in podiatry office in 1 week. Please make appointment prior to d/c. - Diet and Activity Activity: as per physical therapy Diet: advance to your usual diet
[2019-03-10] MEDS ORDERED: *HR* Enoxaparin 40 MG/0.4 ML SYRINGE SQ ONE (12:19)
--- NOTE | 2019-03-10 13:38 | Podiatry Progress Note ---
Date of Encounter: 03/10/19 Time of Encounter: 12:00 - Assessment and Plan (1) Closed trimalleolar fracture of right ankle Current Visit: Yes Status: Acute s/p ORIF right trimalleolar ankle fracture on 03/01 with revision and Removal of right ankle hardware, right ankle joint fusion, right subtalar joint fusion 03/05 with . PLAN: Assessed at bedside Dressing to RLE clean dry and intact Patient stable and without acute needs at this time. Elevate and ice as needed for pain NWB to RLE at all times Patient will need to be followed and see in podiatry clinic in 1 week following discharge, please make appointment prior to discharge with Call sooner with any fevers, chills, n/v fls or dressing saturation ED with calf pain or sob Sensation and cap refill to toes assessed and without concern at this time Patient notes comfort of posterior splint Leave in place until post op visit. Patient will need to be discharged on DVT prophylaxis (xarelto or lovenox) [id number] and pain medication for pain control Qualifiers: Encounter type: subsequent encounter Fracture healing: with nonunion Qualified Code(s): S82.851K - Displaced trimalleolar fracture of right lower leg, subsequent encounter for closed fracture with nonunion (2) Diabetic foot ulcer Current Visit: Yes Status: Acute Assessment: Stable healing jones stage II diabetic ulceration sub mt head #2 right foot PLAN Healing well and without complication No appearance of infection Chronic ulceration Cleansed with saline Applied adaptic, 4x4 and bulk dressing leave dressing intact Continue to monitor. Qualifiers: Diabetic foot ulcer location: toe Diabetes mellitus type: type 2 Laterality: right Non-pressure ulcer stage: unspecified non-pressure ulcer stage Qualified Code(s): E11.621 - Type 2 diabetes mellitus with foot ulcer; L97.519 - Non-pressure chronic ulcer of other part of right foot with unspecified severity Subjective Principal diagnosis: s/p ORIF right ankle fracture Interval history: s/p ORIF right trimalleolar ankle fracture on 03/01 with revision and Removal of right ankle hardware, right ankle joint fusion, right subtalar joint fusion 03/05 with . Patient resting comfortably on arrival. Awakened upon entering room. States she is in minimal pain at this time. Patient has been accepted to [facility] and is pending discharge. Patient denies any fevers, chills, n/v or fls. Denies any calf pain or sob. Patient dressing CDI and elevated with ice behind her knee. No acute issues at this time. Objective - Vital Signs Vital Signs: Vital Signs Temp Pulse Resp BP Pulse Ox 03/10/19 11:17 98.7 F 69 16 131/82 96 03/10/19 07:19 98.2 F 67 16 117/81 98 03/10/19 04:07 97.4 F L 56 17 144/75 98 03/10/19 00:56 98.3 F 81 17 147/78 95 03/09/19 20:27 98.1 F 73 16 148/65 94 03/09/19 16:00 98.9 F 65 17 136/82 96 Intake and Output 03/09/19 03/10/19 03/10/19 23:59 07:59 15:59 Other: Meal Breakfast Percent of Meal Consumed 100% # Voids 1 1 Blood Glucose* 234 170 183 - Exam Exam: CONSTITUTIONAL: Awake, alert and oriented VASCULAR: Toes warm, cap refill <3 seconds, no calf pain with manual compression NEUROLOGICAL: slightly diminished sensation to light touch MUSCULOSKELETAL: movement of toes intact Left posterior splint to RLE intact. No need to remove at this time. Will leave intact until post operative visit. - Lab Result Diagrams: 03/10/19 08:38 03/10/19 08:38 Labs: Abnormal lab results RBC 3.63 M/mcL (3.82-4.97) L 03/10/19 08:38 Hgb 9.8 g/dL (11.5-15.4) L 03/10/19 08:38 Hct 31.7 % (35.3-44.9) L 03/10/19 08:38 MCH 27.0 pg (28.0-33.3) L 03/10/19 08:38 MCHC 30.9 g/dL (31.6-35.5) L 03/10/19 08:38 D-Dimer 1126 ng/mLFEU (0-500) H 03/03/19 02:41 Carbon Dioxide 31 mEq/L (23-29) H 03/10/19 08:38 BUN 29 mg/dL (6-20) H 03/10/19 08:38 Est GFR (Non-Af Amer) 58 (> 60) L 03/10/19 08:38 BUN/Creatinine Ratio 29 (6-26) H 03/10/19 08:38 Glucose 139 mg/dL (70-105) H 03/10/19 08:38 POC Glucose 183 mg/dL (70-99) H 03/10/19 11:22 Hemoglobin A1c 12.7 % (-5.6) H 03/02/19 05:53 Phosphorus 4.7 mg/dL (2.7-4.5) H 03/07/19 01:05 Consult Discharge Plan - Plan Additional Instructions: Follow up in podiatry office in 1 week. Please make appointment prior to d/c. Referrals: Tracy Rizzo CNP [Primary Care Provider] - Prescriptions: Enoxaparin [Lovenox] 40 mg SQ DAILY #21 syr OxyCODONE/APAP 5/325 [Percocet 5/325 MG] 1 each PO Q4HR PRN 2 Days #10 tablet PRN Reason: Pain
[2019-03-10 15:05] VITALS: BP 139/87
--- NOTE | 2019-03-10 16:17 | Electrocardiograph Report ---
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
[2019-03-11] MEDS ORDERED: Spironolactone 25 MG TABLET PO SCH (09:00)
== END 2019-03-10 15:45 | DRG 313 ==
LOC: 3NENU
PROVIDERS: ADMIT Hospitalist; ATTEND General Practice

== ENCOUNTER 2019-12-14 14:04 | Observation (INO) ==
[2019-12-14 16:41] LABS: Potassium 3.9 mEq/L (3.5-5.1)
[2019-12-14 16:44] LABS: Basophils % 0.5 %; Eosinophils # 0.2 K/mcL (0.0-0.6); Eosinophils % 2.6 %; Hematocrit 37.3 % (35.3-44.9); Hemoglobin 11.3 g/dL (11.5-15.4); Immature Granulocytes % 0.3 % (0-4); Lymphocytes # 1.6 K/mcL (0.6-4.6); Lymphocytes % 18.6 %; Mean Corpuscular HGB Conc 30.3 g/dL (31.6-35.5); Mean Corpuscular Hemoglobin 25.5 pg (28.0-33.3); Mean Platelet Volume 11.5 fL (9.4-12.4); Monocytes # 0.6 K/mcL (0.0-1.3); Monocytes % 6.5 %; Neutrophils # 6.3 K/mcL (1.6-8.9); Platelet Count 325 K/mcL (140-400); Red Blood Count 4.44 M/mcL (3.82-4.97); Red Cell Distribution Width 14.4 % (11.5-14.5); Segmented Neutrophils % 71.5 %; White Blood Count 8.8 K/mcL (4.3-11.1)
[2019-12-14] MEDS ORDERED: Piperacillin/Tazobactam 3.375 GM in 0.9 % Sodium Chloride Mini Bag 100 ML IVPB ONE (21:10)
[2019-12-14] MEDS ORDERED: *HR* Acetylcysteine 20% 600 MG/3 ML ORAL SYRINGE PO SCH (22:10)
[2019-12-14] MEDS ORDERED: Isovue-370 500 ML BOTTLE IVP ONE (22:14)
[2019-12-14] MEDS ORDERED: Ondansetron 4 MG/2 ML VIAL IVP PRN (22:20)
[2019-12-14] MEDS: 0.9 % Sodium Chloride 1,000 ML IVC SCH (22:26)
[2019-12-14] MEDS ORDERED: *HR* OxyCODONE Immed Rel 5 MG TABLET PO PRN (23:26)
[2019-12-14] MEDS ORDERED: Naloxone 0.4 MG/ML INJ IVP PRN (23:26)
[2019-12-14] MEDS ORDERED: *HR* Dextrose 50 % in Water (Syg) 50 ML SYRINGE IVP PRN (23:33)
[2019-12-14] MEDS ORDERED: D5% in Water 1,000 ML IVC PRN (23:33)
[2019-12-14] MEDS ORDERED: Dextrose Gel 15 GM/37.5 ML TUBE PO PRN ×2 (23:33)
[2019-12-15] MEDS: Insulin LISPRO 300 UNITS/3 ML VIAL SQ SCH ×6 (01:07→18:15)
[2019-12-15] MEDS ORDERED: *HR* Acetylcysteine 20% 600 MG/3 ML ORAL SYRINGE PO SCH (02:00)
[2019-12-15] MEDS ORDERED: Insulin LISPRO 300 UNITS/3 ML VIAL SQ ONE ×2 (02:40→03:56)
[2019-12-15 05:26] LABS: Basophils % 0.3 %; Eosinophils # 0.2 K/mcL (0.0-0.6); Eosinophils % 2.5 %; Immature Granulocytes % 0.3 % (0-4); Lymphocytes % 22.7 %; Mean Corpuscular HGB Conc 30.3 g/dL (31.6-35.5); Mean Corpuscular Hemoglobin 25.5 pg (28.0-33.3); Mean Corpuscular Volume 84.2 fL (83.0-100.0); Mean Platelet Volume 12.1 fL (9.4-12.4); Monocytes # 0.9 K/mcL (0.0-1.3); Monocytes % 9.9 %; Neutrophils # 5.6 K/mcL (1.6-8.9); Platelet Count 273 K/mcL (140-400); Red Cell Distribution Width 14.5 % (11.5-14.5); Segmented Neutrophils % 64.3 %; White Blood Count 8.7 K/mcL (4.3-11.1)
[2019-12-15 05:27] LABS: Hemoglobin 9.7 g/dL (11.5-15.4)
[2019-12-15] MEDS: *HR* Heparin 5,000 UNIT/ML VIAL SQ SCH ×3 (05:39→23:02)
[2019-12-15 05:45] LABS: BUN/Creatinine Ratio 26 (6-26); Blood Urea Nitrogen 29 mg/dL (6-20); Calcium 8.2 mg/dL (8.6-10.3); Carbon Dioxide 26 mEq/L (23-29); Chloride 100 mEq/L (98-107); Glucose 253 mg/dL (70-105); Magnesium 1.7 mg/dL (1.6-2.6); Osmolality,Calculated 292 (280-300); Potassium 3.8 mEq/L (3.5-5.1); Sodium 134 mEq/L (136-145); eGFR For African Americans > 60 (> 60); eGFR For Non-African Americans 53 (> 60)
[2019-12-15] MEDS: 0.9 % Sodium Chloride 1,000 ML IVC SCH (07:42)
[2019-12-15] MEDS: Acetaminophen 325 MG TABLET PO PRN ×2 (07:42→23:02)
[2019-12-15] MEDS: Piperacillin/Tazobactam 3.375 GM in 0.9 % Sodium Chloride Mini Bag 100 ML IVPB SCH ×3 (08:28→23:09)
[2019-12-15] MEDS: carvediloL 25 MG TABLET PO SCH ×2 (08:31→18:15)
[2019-12-15] MEDS: Doxycycline 100 MG CAPSULE PO SCH ×2 (08:32→23:02)
[2019-12-15] MEDS: Aspirin Enteric Coated 81 MG Tablet PO SCH (08:32)
[2019-12-15] MEDS: Furosemide 40 MG TABLET PO SCH (08:32)
[2019-12-15 09:19] LABS: C-Reactive Protein 69 mg/L (Less than 10)
[2019-12-15 09:42] LABS: Estimated Average Glucose 272 mg/dl
[2019-12-15] MEDS: Insulin DETEMIR 100 UNIT/ML X5UNITS SQ SCH (13:30)
[2019-12-15] MEDS: Pregabalin 75 MG CAPSULE PO SCH (13:31)
[2019-12-15] MEDS ORDERED: Pregabalin 75 MG CAPSULE PO SCH (21:00)
[2019-12-15] MEDS: Sacubitril/Valsartan 97/103 MG 1 TAB TABLET PO SCH (23:02)
[2019-12-16 04:31] LABS: Basophils % 0.4 %; Eosinophils # 0.2 K/mcL (0.0-0.6); Eosinophils % 2.3 %; Hematocrit 29.4 % (35.3-44.9); Hemoglobin 8.9 g/dL (11.5-15.4); Immature Granulocytes % 0.3 % (0-4); Lymphocytes # 1.5 K/mcL (0.6-4.6); Lymphocytes % 20.8 %; Mean Corpuscular HGB Conc 30.3 g/dL (31.6-35.5); Mean Corpuscular Hemoglobin 25.6 pg (28.0-33.3); Mean Corpuscular Volume 84.7 fL (83.0-100.0); Monocytes # 0.4 K/mcL (0.0-1.3); Monocytes % 5.8 %; Neutrophils # 5.2 K/mcL (1.6-8.9); Platelet Count 253 K/mcL (140-400); Red Blood Count 3.47 M/mcL (3.82-4.97); Red Cell Distribution Width 14.6 % (11.5-14.5); Segmented Neutrophils % 70.4 %; White Blood Count 7.4 K/mcL (4.3-11.1)
[2019-12-16 04:49] LABS: Calcium 8.2 mg/dL (8.6-10.3); Magnesium 1.8 mg/dL (1.6-2.6); Potassium 4.1 mEq/L (3.5-5.1)
[2019-12-16] MEDS: *HR* Heparin 5,000 UNIT/ML VIAL SQ SCH (05:03)
[2019-12-16 07:15] VITALS: BP 125/71
[2019-12-16] MEDS: Insulin LISPRO 300 UNITS/3 ML VIAL SQ SCH ×4 (07:32→12:02)
[2019-12-16] MEDS: Insulin DETEMIR 100 UNIT/ML X5UNITS SQ SCH (07:57)
[2019-12-16] MEDS: Aspirin Enteric Coated 81 MG Tablet PO SCH (07:57)
[2019-12-16] MEDS: Furosemide 40 MG TABLET PO SCH (07:57)
[2019-12-16] MEDS: Doxycycline 100 MG CAPSULE PO SCH (07:57)
[2019-12-16] MEDS: carvediloL 25 MG TABLET PO SCH (07:57)
[2019-12-16] MEDS: Piperacillin/Tazobactam 3.375 GM in 0.9 % Sodium Chloride Mini Bag 100 ML IVPB SCH (07:59)
[2019-12-16] MEDS ORDERED: Pregabalin 75 MG CAPSULE PO SCH (08:00)
[2019-12-16] MEDS: Sacubitril/Valsartan 97/103 MG 1 TAB TABLET PO SCH (08:00)
[2019-12-16] MEDS ORDERED: amLODIPine 5 MG TABLET PO SCH (09:00)
[2019-12-16] MEDS: Pregabalin 75 MG CAPSULE PO SCH (12:02)
== END 2019-12-16 13:05 | disposition home or self-care (01) ==
LOC: SUATTDRO → 2ANU 14:04 → EMEROOARM 14:04 → SUATTDRO 22:42 → 2ANU 23:35
PROVIDERS: ADMIT Pharmacist; ATTEND Internal Medicine

== ENCOUNTER 2020-02-10 19:14 | Inpatient (IN) ==
[2020-02-10] MEDS ORDERED: *HR* OxyCODONE Immed Rel 5 MG TABLET PO ONE (20:47)
[2020-02-10 22:29] LABS: Basophils % 0.3 %; Eosinophils # 0.2 K/mcL (0.0-0.6); Eosinophils % 2.7 %; Hemoglobin 10.8 g/dL (11.5-15.4); Immature Granulocytes % 0.1 % (0-4); Lymphocytes # 1.5 K/mcL (0.6-4.6); Lymphocytes % 19.8 %; Mean Corpuscular Hemoglobin 24.2 pg (28.0-33.3); Mean Corpuscular Volume 80.5 fL (83.0-100.0); Mean Platelet Volume 11.9 fL (9.4-12.4); Monocytes # 0.5 K/mcL (0.0-1.3); Monocytes % 6.9 %; Neutrophils # 5.2 K/mcL (1.6-8.9); Platelet Count 216 K/mcL (140-400); Red Blood Count 4.47 M/mcL (3.82-4.97); Red Cell Distribution Width 15.7 % (11.5-14.5); Segmented Neutrophils % 70.2 %; White Blood Count 7.3 K/mcL (4.3-11.1)
[2020-02-10 22:34] LABS: INR 1.1; Prothrombin Time 12.8 Seconds (9.4-12.1)
[2020-02-10 22:37] LABS: Activated Partial Thrombo Time 35.3 Seconds (26.0-36.0)
[2020-02-10 22:49] LABS: Alanine Aminotransferase 10 Units/L (7-52); Albumin 3.3 g/dL (3.5-5.7); Albumin/Globulin Ratio 0.7 (1.1-2.2); Alkaline Phosphatase 172 Units/L (34-104); Aspartate Amino Transferase 11 Units/L (13-39); BUN/Creatinine Ratio 28 (6-26); Bilirubin,Total 0.4 mg/dL (0.3-1.0); Blood Urea Nitrogen 32 mg/dL (6-20); Calcium 8.9 mg/dL (8.6-10.3); Carbon Dioxide 29 mEq/L (23-29); Chloride 96 mEq/L (98-107); Globulin 4.6 g/dL (2.4-3.5); Glucose 326 mg/dL (70-105); Osmolality,Calculated 290 (280-300); Potassium 3.7 mEq/L (3.5-5.1); Sodium 130 mEq/L (136-145); Total Protein 7.9 g/dL (6.4-8.9); eGFR For African Americans > 60 (> 60); eGFR For Non-African Americans 50 (> 60)
[2020-02-11] MEDS ORDERED: Ondansetron 4 MG/2 ML VIAL IVP PRN (00:58)
[2020-02-11] MEDS ORDERED: Acetaminophen 325 MG TABLET PO PRN (00:58)
[2020-02-11] MEDS ORDERED: Naloxone 0.4 MG/ML INJ IVP PRN (00:58)
[2020-02-11] MEDS ORDERED: D5% in Water 1,000 ML IVC PRN (01:22)
[2020-02-11] MEDS ORDERED: *HR* Dextrose 50 % in Water (Syg) 50 ML SYRINGE IVP PRN (01:22)
[2020-02-11] MEDS ORDERED: Dextrose Gel 15 GM/37.5 ML TUBE PO PRN ×2 (01:22)
[2020-02-11 03:00] LABS: Basophils % 0.3 %; Eosinophils # 0.1 K/mcL (0.0-0.6); Hematocrit 35.8 % (35.3-44.9); Immature Granulocytes % 0.5 % (0-4); Lymphocytes # 0.7 K/mcL (0.6-4.6); Lymphocytes % 5.7 %; Mean Corpuscular HGB Conc 30.7 g/dL (31.6-35.5); Mean Corpuscular Hemoglobin 24.4 pg (28.0-33.3); Mean Corpuscular Volume 79.6 fL (83.0-100.0); Mean Platelet Volume 11.8 fL (9.4-12.4); Monocytes % 7.8 %; Platelet Count 221 K/mcL (140-400); Red Cell Distribution Width 15.7 % (11.5-14.5); Segmented Neutrophils % 84.7 %
[2020-02-11 03:01] LABS: Neutrophils # 10.3 K/mcL (1.6-8.9); White Blood Count 12.2 K/mcL (4.3-11.1)
[2020-02-11 03:04] LABS: INR 1.2; Prothrombin Time 13.6 Seconds (9.4-12.1)
[2020-02-11 03:19] LABS: Magnesium 1.4 mg/dL (1.6-2.6); Phosphorous 3.7 mg/dL (2.7-4.5)
[2020-02-11] MEDS: Insulin LISPRO 300 UNITS/3 ML VIAL SQ SCH ×5 (03:32→20:47)
[2020-02-11] MEDS: Insulin DETEMIR 100 UNIT/ML X5UNITS SQ SCH ×2 (03:33→20:47)
[2020-02-11] MEDS: carvediloL 25 MG TABLET PO SCH ×2 (03:33→17:35)
[2020-02-11] MEDS ORDERED: Pregabalin 75 MG CAPSULE PO ONE (04:57)
[2020-02-11] MEDS: Aspirin Enteric Coated 81 MG Tablet PO SCH (08:55)
[2020-02-11] MEDS: Ondansetron ODT 4 MG TAB.RAPDIS SL PRN (08:56)
[2020-02-11] MEDS ORDERED: Furosemide 40 MG TABLET PO SCH (09:00)
[2020-02-11] MEDS ORDERED: amLODIPine 5 MG TABLET PO SCH (09:00)
[2020-02-11] MEDS: Sacubitril/Valsartan 97/103 MG 1 TAB TABLET PO SCH ×2 (09:04→20:47)
[2020-02-11] MEDS: Pregabalin 75 MG CAPSULE PO SCH (12:19)
[2020-02-11 13:09] LABS: % Iron Saturation 5 % (15-50); Iron 13 mcg/dL (50-170); Transferrin 200 mg/dL (203-362)
[2020-02-11] MEDS: *HR* Heparin 5,000 UNIT/ML VIAL SQ SCH ×2 (15:24→21:35)
[2020-02-11] MEDS ORDERED: Neosporin OINT 1 APPL PACKET TP ONE (16:07)
[2020-02-11] MEDS: Piperacillin/Tazobactam 3.375 GM in 0.9 % Sodium Chloride Mini Bag 100 ML IVPB SCH (17:33)
[2020-02-11] MEDS: SULFAMETHOXAZOLE IVPB SCH (17:39)
[2020-02-11] MEDS: WATER IVPB SCH (17:39)
[2020-02-11] MEDS: TRIMETH IVPB SCH (17:39)
[2020-02-11] MEDS: D5 IVPB SCH (17:39)
[2020-02-11] MEDS ORDERED: Pregabalin 75 MG CAPSULE PO SCH (21:00)
[2020-02-12] MEDS: Piperacillin/Tazobactam 3.375 GM in 0.9 % Sodium Chloride Mini Bag 100 ML IVPB SCH ×3 (00:55→16:08)
[2020-02-12] MEDS: D5 IVPB SCH (02:45)
[2020-02-12] MEDS: SULFAMETHOXAZOLE IVPB SCH (02:45)
[2020-02-12] MEDS: TRIMETH IVPB SCH (02:45)
[2020-02-12] MEDS: WATER IVPB SCH (02:45)
[2020-02-12 04:30] LABS: Basophils % 0.2 %; Eosinophils # 0.2 K/mcL (0.0-0.6); Eosinophils % 2.1 %; Hematocrit 30.3 % (35.3-44.9); Immature Granulocytes % 0.2 % (0-4); Lymphocytes # 1.5 K/mcL (0.6-4.6); Lymphocytes % 16.5 %; Mean Corpuscular HGB Conc 30.7 g/dL (31.6-35.5); Mean Corpuscular Hemoglobin 25.3 pg (28.0-33.3); Mean Corpuscular Volume 82.6 fL (83.0-100.0); Mean Platelet Volume 12.6 fL (9.4-12.4); Monocytes # 0.7 K/mcL (0.0-1.3); Monocytes % 8.1 %; Neutrophils # 6.6 K/mcL (1.6-8.9); Platelet Count 187 K/mcL (140-400); Red Blood Count 3.67 M/mcL (3.82-4.97); Red Cell Distribution Width 15.9 % (11.5-14.5); Segmented Neutrophils % 72.9 %
[2020-02-12 04:32] LABS: Hemoglobin 9.3 g/dL (11.5-15.4)
[2020-02-12 04:49] LABS: Potassium 4.1 mEq/L (3.5-5.1)
[2020-02-12] MEDS: *HR* Heparin 5,000 UNIT/ML VIAL SQ SCH ×3 (05:26→21:03)
[2020-02-12] MEDS: Insulin LISPRO 300 UNITS/3 ML VIAL SQ SCH ×4 (08:24→21:01)
[2020-02-12] MEDS: 0.9 % Sodium Chloride 1,000 ML IVC SCH ×2 (08:39→21:00)
[2020-02-12] MEDS: carvediloL 25 MG TABLET PO SCH (08:39)
[2020-02-12] MEDS: Ondansetron ODT 4 MG TAB.RAPDIS SL PRN (08:40)
[2020-02-12] MEDS: Sacubitril/Valsartan 97/103 MG 1 TAB TABLET PO SCH ×2 (08:40→21:00)
[2020-02-12] MEDS: Aspirin Enteric Coated 81 MG Tablet PO SCH (08:40)
[2020-02-12] MEDS: Doxycycline 100 MG in 0.9 % Sodium Chloride Mini Bag 100 ML IVPB SCH ×2 (08:44→18:10)
[2020-02-12] MEDS ORDERED: Tdap (Boostrix) Vaccine 0.5 ML SYRINGE IM ONE (09:12)
[2020-02-12] MEDS: Pregabalin 75 MG CAPSULE PO SCH ×2 (11:40→21:00)
[2020-02-12] MEDS ORDERED: Iron Polysaccharide Complex 150 MG CAPSULE PO ONE (19:00)
[2020-02-12] MEDS ORDERED: PREGABALIN 300 MG PO SCH (21:00)
[2020-02-12] MEDS: Insulin DETEMIR 100 UNIT/ML X5UNITS SQ SCH (21:01)
[2020-02-13] MEDS: Piperacillin/Tazobactam 3.375 GM in 0.9 % Sodium Chloride Mini Bag 100 ML IVPB SCH ×3 (00:48→15:04)
[2020-02-13 03:00] LABS: Albumin 2.9 g/dL (3.5-5.7); Albumin/Globulin Ratio 0.8 (1.1-2.2); Bilirubin,Total 0.2 mg/dL (0.3-1.0); Globulin 3.8 g/dL (2.4-3.5); Potassium 4.2 mEq/L (3.5-5.1); Total Protein 6.7 g/dL (6.4-8.9)
[2020-02-13] MEDS: Doxycycline 100 MG in 0.9 % Sodium Chloride Mini Bag 100 ML IVPB SCH ×2 (05:47→17:48)
[2020-02-13] MEDS: *HR* Heparin 5,000 UNIT/ML VIAL SQ SCH ×3 (05:48→21:26)
[2020-02-13] MEDS: Insulin LISPRO 300 UNITS/3 ML VIAL SQ SCH ×4 (07:55→21:29)
[2020-02-13] MEDS: 0.9 % Sodium Chloride 1,000 ML IVC SCH ×2 (10:37→21:42)
[2020-02-13] MEDS: Sacubitril/Valsartan 97/103 MG 1 TAB TABLET PO SCH ×2 (10:38→21:26)
[2020-02-13] MEDS: Aspirin Enteric Coated 81 MG Tablet PO SCH (10:38)
[2020-02-13] MEDS: predniSONE 20 MG TABLET PO SCH (10:38)
[2020-02-13] MEDS: Pregabalin 75 MG CAPSULE PO SCH ×2 (12:34→21:25)
[2020-02-13] MEDS ORDERED: *HR* HYDROcodone/Acet 5/325 mg TABLET PO PRN (14:42)
[2020-02-13] MEDS ORDERED: *HR* OxyCODONE/APAP 5/325 TABLET PO PRN (14:42)
[2020-02-13] MEDS: Insulin DETEMIR 100 UNIT/ML X5UNITS SQ SCH (21:40)
[2020-02-14] MEDS: Piperacillin/Tazobactam 3.375 GM in 0.9 % Sodium Chloride Mini Bag 100 ML IVPB SCH ×3 (00:29→16:08)
[2020-02-14] MEDS: Doxycycline 100 MG in 0.9 % Sodium Chloride Mini Bag 100 ML IVPB SCH ×2 (05:19→18:23)
[2020-02-14] MEDS: *HR* Heparin 5,000 UNIT/ML VIAL SQ SCH ×3 (05:23→20:28)
[2020-02-14] MEDS: Ondansetron ODT 4 MG TAB.RAPDIS SL PRN (05:27)
[2020-02-14] MEDS: 0.9 % Sodium Chloride 1,000 ML IVC SCH ×2 (07:29→11:59)
[2020-02-14 08:25] LABS: Hematocrit 30.2 % (35.3-44.9); Hemoglobin 9.3 g/dL (11.5-15.4); Mean Corpuscular HGB Conc 30.8 g/dL (31.6-35.5); Mean Corpuscular Hemoglobin 25.3 pg (28.0-33.3); Mean Corpuscular Volume 82.1 fL (83.0-100.0); Mean Platelet Volume 11.6 fL (9.4-12.4); Platelet Count 185 K/mcL (140-400); Red Blood Count 3.68 M/mcL (3.82-4.97); Red Cell Distribution Width 15.8 % (11.5-14.5); White Blood Count 6.6 K/mcL (4.3-11.1)
[2020-02-14] MEDS: Insulin LISPRO 300 UNITS/3 ML VIAL SQ SCH ×4 (08:31→20:33)
[2020-02-14] MEDS: Aspirin Enteric Coated 81 MG Tablet PO SCH (08:32)
[2020-02-14] MEDS: predniSONE 20 MG TABLET PO SCH (08:32)
[2020-02-14] MEDS: Sacubitril/Valsartan 97/103 MG 1 TAB TABLET PO SCH ×2 (08:32→20:28)
[2020-02-14 08:46] LABS: Albumin/Globulin Ratio 0.8 (1.1-2.2); Bilirubin,Total 0.2 mg/dL (0.3-1.0); Calcium 8.8 mg/dL (8.6-10.3); Globulin 3.8 g/dL (2.4-3.5); Magnesium 2.1 mg/dL (1.6-2.6); Potassium 4.3 mEq/L (3.5-5.1); Total Protein 6.8 g/dL (6.4-8.9)
[2020-02-14] MEDS: Pregabalin 75 MG CAPSULE PO SCH ×2 (11:56→20:29)
[2020-02-14] MEDS: Insulin DETEMIR 100 UNIT/ML X5UNITS SQ SCH (20:28)
[2020-02-15 01:33] LABS: Hematocrit 28.5 % (35.3-44.9); Hemoglobin 8.7 g/dL (11.5-15.4); Mean Corpuscular HGB Conc 30.5 g/dL (31.6-35.5); Mean Corpuscular Hemoglobin 25.1 pg (28.0-33.3); Mean Corpuscular Volume 82.1 fL (83.0-100.0); Mean Platelet Volume 12.5 fL (9.4-12.4); Platelet Count 197 K/mcL (140-400); Red Blood Count 3.47 M/mcL (3.82-4.97); Red Cell Distribution Width 15.9 % (11.5-14.5)
[2020-02-15] MEDS: Piperacillin/Tazobactam 3.375 GM in 0.9 % Sodium Chloride Mini Bag 100 ML IVPB SCH (01:33)
[2020-02-15 01:56] LABS: Calcium 8.6 mg/dL (8.6-10.3); Potassium 5.1 mEq/L (3.5-5.1)
[2020-02-15] MEDS: 0.9 % Sodium Chloride 1,000 ML IVC SCH (02:29)
[2020-02-15] MEDS: Doxycycline 100 MG in 0.9 % Sodium Chloride Mini Bag 100 ML IVPB SCH (05:58)
[2020-02-15] MEDS: *HR* Heparin 5,000 UNIT/ML VIAL SQ SCH (06:00)
[2020-02-15] MEDS: Sacubitril/Valsartan 97/103 MG 1 TAB TABLET PO SCH (07:46)
[2020-02-15] MEDS: Aspirin Enteric Coated 81 MG Tablet PO SCH (07:46)
[2020-02-15] MEDS: predniSONE 20 MG TABLET PO SCH (07:46)
[2020-02-15] MEDS ORDERED: levoFLOXacin 750 MG TABLET PO SCH (08:15)
[2020-02-15] MEDS: Insulin LISPRO 300 UNITS/3 ML VIAL SQ SCH ×2 (08:20→12:44)
[2020-02-15 09:58] VITALS: BP 153/84
[2020-02-15] MEDS: Pregabalin 75 MG CAPSULE PO SCH (12:04)
== END 2020-02-15 15:11 | disposition home health service (06) ==
LOC: 3ANU 19:14 → EMEROOARM 19:14 → SUATTDRO 02-11 00:33 → 3ANU 02-11 01:07
PROVIDERS: ADMIT Student in an Organized Health Care Education/Training Program; ATTEND Internal Medicine

== ENCOUNTER 2020-02-26 14:51 | Inpatient (IN) ==
[2020-02-26 16:21] LABS: Eosinophils % 1.3 %; Hematocrit 30.1 % (35.3-44.9); Hemoglobin 8.9 g/dL (11.5-15.4); Immature Granulocytes % 0.3 % (0-4); Lymphocytes % 14.7 %; Mean Corpuscular HGB Conc 29.6 g/dL (31.6-35.5); Mean Corpuscular Hemoglobin 23.9 pg (28.0-33.3); Mean Corpuscular Volume 80.9 fL (83.0-100.0); Mean Platelet Volume 11.3 fL (9.4-12.4); Monocytes % 7.5 %; Platelet Count 263 K/mcL (140-400); Red Blood Count 3.72 M/mcL (3.82-4.97); Segmented Neutrophils % 75.9 %; White Blood Count 9.7 K/mcL (4.3-11.1)
[2020-02-26 16:22] LABS: Basophils % 0.3 %; Eosinophils # 0.1 K/mcL (0.0-0.6); Lymphocytes # 1.4 K/mcL (0.6-4.6); Monocytes # 0.7 K/mcL (0.0-1.3); Neutrophils # 7.3 K/mcL (1.6-8.9)
[2020-02-26 16:41] LABS: Calcium 9.3 mg/dL (8.6-10.3); Potassium 4.2 mEq/L (3.5-5.1)
[2020-02-26] MEDS ORDERED: Naloxone 0.4 MG/ML INJ IVP PRN (17:21)
[2020-02-26] MEDS ORDERED: Ondansetron 4 MG/2 ML VIAL IVP PRN (17:21)
[2020-02-26] MEDS ORDERED: D5% in Water 1,000 ML IVC PRN (17:23)
[2020-02-26] MEDS ORDERED: Dextrose Gel 15 GM/37.5 ML TUBE PO PRN ×2 (17:23)
[2020-02-26] MEDS ORDERED: *HR* HYDROcodone/Acet 5/325 mg TABLET PO PRN (17:24)
[2020-02-26] MEDS ORDERED: *HR* Metoprolol 5 MG/5 ML VIAL IVP PRN (17:32)
[2020-02-26 17:55] LABS: Estimated Average Glucose 223 mg/dl
[2020-02-26] MEDS: Pregabalin 75 MG CAPSULE PO SCH (23:37)
[2020-02-26] MEDS: Sacubitril/Valsartan 97/103 MG 1 TAB TABLET PO SCH (23:38)
[2020-02-26] MEDS: amLODIPine 5 MG TABLET PO SCH (23:38)
[2020-02-26] MEDS: Insulin LISPRO 300 UNITS/3 ML VIAL SQ SCH ×2 (23:38)
[2020-02-26] MEDS: Insulin DETEMIR 100 UNIT/ML X5UNITS SQ SCH (23:39)
[2020-02-27] MEDS ORDERED: *HR* OxyCODONE Immed Rel 5 MG TABLET PO ONE (01:40)
[2020-02-27 06:00] LABS: Basophils % 0.3 %; Eosinophils # 0.2 K/mcL (0.0-0.6); Eosinophils % 2.3 %; Hematocrit 28.7 % (35.3-44.9); Hemoglobin 8.6 g/dL (11.5-15.4); Immature Granulocytes % 0.2 % (0-4); Lymphocytes # 1.7 K/mcL (0.6-4.6); Lymphocytes % 25.4 %; Mean Corpuscular Hemoglobin 24.3 pg (28.0-33.3); Mean Corpuscular Volume 81.1 fL (83.0-100.0); Mean Platelet Volume 11.6 fL (9.4-12.4); Monocytes # 0.6 K/mcL (0.0-1.3); Monocytes % 8.9 %; Neutrophils # 4.2 K/mcL (1.6-8.9); Platelet Count 227 K/mcL (140-400); Red Blood Count 3.54 M/mcL (3.82-4.97); Red Cell Distribution Width 15.9 % (11.5-14.5); Segmented Neutrophils % 62.9 %; White Blood Count 6.6 K/mcL (4.3-11.1)
[2020-02-27 06:19] LABS: Calcium 8.7 mg/dL (8.6-10.3); Magnesium 1.6 mg/dL (1.6-2.6); Phosphorous 4.7 mg/dL (2.7-4.5); Potassium 3.8 mEq/L (3.5-5.1)
[2020-02-27] MEDS: Insulin LISPRO 300 UNITS/3 ML VIAL SQ SCH ×3 (09:04→17:46)
[2020-02-27] MEDS: Sacubitril/Valsartan 97/103 MG 1 TAB TABLET PO SCH ×2 (09:13→23:41)
[2020-02-27] MEDS: Aspirin Enteric Coated 81 MG Tablet PO SCH (09:13)
[2020-02-27] MEDS: amLODIPine 5 MG TABLET PO SCH (09:22)
[2020-02-27] MEDS: Pregabalin 75 MG CAPSULE PO SCH ×2 (12:22→23:42)
[2020-02-27] MEDS: *HR* OxyCODONE Immed Rel 5 MG TABLET PO PRN (14:33)
[2020-02-27] MEDS: Piperacillin/Tazobactam 3.375 GM in 0.9 % Sodium Chloride Mini Bag 100 ML IVPB SCH (17:47)
[2020-02-27] MEDS: Insulin DETEMIR 100 UNIT/ML X5UNITS SQ SCH (23:42)
[2020-02-28 01:02] LABS: Basophils % 0.3 %; Eosinophils # 0.3 K/mcL (0.0-0.6); Eosinophils % 4.8 %; Hematocrit 27.5 % (35.3-44.9); Hemoglobin 8.3 g/dL (11.5-15.4); Immature Granulocytes % 0.2 % (0-4); Lymphocytes # 1.7 K/mcL (0.6-4.6); Lymphocytes % 28.3 %; Mean Corpuscular HGB Conc 30.2 g/dL (31.6-35.5); Mean Corpuscular Hemoglobin 24.6 pg (28.0-33.3); Mean Corpuscular Volume 81.4 fL (83.0-100.0); Monocytes # 0.6 K/mcL (0.0-1.3); Monocytes % 9.7 %; Neutrophils # 3.3 K/mcL (1.6-8.9); Platelet Count 211 K/mcL (140-400); Red Blood Count 3.38 M/mcL (3.82-4.97); Red Cell Distribution Width 15.9 % (11.5-14.5); Segmented Neutrophils % 56.7 %; White Blood Count 5.9 K/mcL (4.3-11.1)
[2020-02-28 01:17] LABS: Calcium 8.7 mg/dL (8.6-10.3); Potassium 4.1 mEq/L (3.5-5.1)
[2020-02-28] MEDS: Piperacillin/Tazobactam 3.375 GM in 0.9 % Sodium Chloride Mini Bag 100 ML IVPB SCH ×3 (02:22→18:03)
[2020-02-28] MEDS: Insulin LISPRO 300 UNITS/3 ML VIAL SQ SCH ×5 (02:24→22:09)
[2020-02-28] MEDS: *HR* OxyCODONE Immed Rel 5 MG TABLET PO PRN ×2 (06:13→22:23)
[2020-02-28] MEDS: amLODIPine 5 MG TABLET PO SCH (08:37)
[2020-02-28] MEDS: Sacubitril/Valsartan 97/103 MG 1 TAB TABLET PO SCH ×2 (08:37→22:08)
[2020-02-28] MEDS: Aspirin Enteric Coated 81 MG Tablet PO SCH (08:37)
[2020-02-28] MEDS: Pregabalin 75 MG CAPSULE PO SCH ×2 (12:42→22:08)
[2020-02-28] MEDS ORDERED: Insulin DETEMIR 100 UNIT/ML X5UNITS SQ SCH (21:00)
[2020-02-29] MEDS: Piperacillin/Tazobactam 3.375 GM in 0.9 % Sodium Chloride Mini Bag 100 ML IVPB SCH ×3 (01:39→18:02)
[2020-02-29 05:29] LABS: Basophils % 0.5 %; Eosinophils # 0.2 K/mcL (0.0-0.6); Eosinophils % 3.4 %; Hematocrit 28.1 % (35.3-44.9); Hemoglobin 8.4 g/dL (11.5-15.4); Immature Granulocytes % 0.3 % (0-4); Lymphocytes # 1.6 K/mcL (0.6-4.6); Lymphocytes % 26.2 %; Mean Corpuscular HGB Conc 29.9 g/dL (31.6-35.5); Mean Corpuscular Hemoglobin 24.4 pg (28.0-33.3); Mean Corpuscular Volume 81.7 fL (83.0-100.0); Mean Platelet Volume 11.1 fL (9.4-12.4); Monocytes # 0.5 K/mcL (0.0-1.3); Monocytes % 8.5 %; Neutrophils # 3.6 K/mcL (1.6-8.9); Platelet Count 242 K/mcL (140-400); Red Blood Count 3.44 M/mcL (3.82-4.97); Red Cell Distribution Width 15.9 % (11.5-14.5); Segmented Neutrophils % 61.1 %; White Blood Count 5.9 K/mcL (4.3-11.1)
[2020-02-29 05:49] LABS: Calcium 8.2 mg/dL (8.6-10.3); Potassium 4.3 mEq/L (3.5-5.1)
[2020-02-29] MEDS ORDERED: Insulin LISPRO 300 UNITS/3 ML VIAL SQ SCH (06:00)
[2020-02-29] MEDS: Sacubitril/Valsartan 97/103 MG 1 TAB TABLET PO SCH ×2 (09:08→20:08)
[2020-02-29] MEDS: amLODIPine 5 MG TABLET PO SCH (09:08)
[2020-02-29] MEDS: Aspirin Enteric Coated 81 MG Tablet PO SCH (09:08)
[2020-02-29] MEDS: Insulin LISPRO 300 UNITS/3 ML VIAL SQ SCH ×2 (11:42→16:43)
[2020-02-29] MEDS: Pregabalin 75 MG CAPSULE PO SCH ×2 (12:38→20:09)
[2020-02-29] MEDS: *HR* OxyCODONE Immed Rel 5 MG TABLET PO PRN (12:40)
[2020-02-29] MEDS: DAPTOmycin 900 MG in 0.9 % Sodium Chloride 100 ML IVPB SCH (16:42)
[2020-02-29] MEDS ORDERED: Linezolid 600 MG TABLET PO SCH (21:00)
[2020-03-01] MEDS: Piperacillin/Tazobactam 3.375 GM in 0.9 % Sodium Chloride Mini Bag 100 ML IVPB SCH ×3 (01:22→17:35)
[2020-03-01] MEDS: *HR* OxyCODONE Immed Rel 5 MG TABLET PO PRN ×3 (04:17→22:29)
[2020-03-01 05:39] LABS: Basophils % 0.4 %; Eosinophils # 0.2 K/mcL (0.0-0.6); Eosinophils % 3.5 %; Hematocrit 30.5 % (35.3-44.9); Immature Granulocytes % 0.2 % (0-4); Lymphocytes # 1.5 K/mcL (0.6-4.6); Lymphocytes % 27.8 %; Mean Corpuscular HGB Conc 29.5 g/dL (31.6-35.5); Mean Corpuscular Volume 81.3 fL (83.0-100.0); Mean Platelet Volume 11.2 fL (9.4-12.4); Monocytes # 0.4 K/mcL (0.0-1.3); Monocytes % 6.8 %; Neutrophils # 3.3 K/mcL (1.6-8.9); Platelet Count 267 K/mcL (140-400); Red Blood Count 3.75 M/mcL (3.82-4.97); Segmented Neutrophils % 61.3 %; White Blood Count 5.4 K/mcL (4.3-11.1)
[2020-03-01 05:57] LABS: Calcium 8.3 mg/dL (8.6-10.3); Potassium 4.3 mEq/L (3.5-5.1)
[2020-03-01] MEDS: Sacubitril/Valsartan 97/103 MG 1 TAB TABLET PO SCH ×2 (09:30→22:30)
[2020-03-01] MEDS: Aspirin Enteric Coated 81 MG Tablet PO SCH (09:30)
[2020-03-01] MEDS: amLODIPine 5 MG TABLET PO SCH (09:30)
[2020-03-01] MEDS: Insulin LISPRO 300 UNITS/3 ML VIAL SQ SCH ×2 (12:25→17:36)
[2020-03-01] MEDS: Pregabalin 75 MG CAPSULE PO SCH ×2 (12:28→22:30)
[2020-03-01] MEDS: DAPTOmycin 900 MG in 0.9 % Sodium Chloride 100 ML IVPB SCH (17:36)
[2020-03-01] MEDS: *HR* Heparin 5,000 UNIT/ML VIAL SQ SCH (17:37)
[2020-03-01] MEDS ORDERED: Insulin DETEMIR 100 UNIT/ML X5UNITS SQ SCH (21:00)
[2020-03-02] MEDS: Piperacillin/Tazobactam 3.375 GM in 0.9 % Sodium Chloride Mini Bag 100 ML IVPB SCH ×3 (01:49→17:20)
[2020-03-02 05:05] LABS: Basophils % 0.4 %; Eosinophils # 0.2 K/mcL (0.0-0.6); Eosinophils % 4.3 %; Hematocrit 29.4 % (35.3-44.9); Hemoglobin 8.8 g/dL (11.5-15.4); Immature Granulocytes % 0.2 % (0-4); Lymphocytes # 1.6 K/mcL (0.6-4.6); Lymphocytes % 30.7 %; Mean Corpuscular HGB Conc 29.9 g/dL (31.6-35.5); Mean Corpuscular Hemoglobin 24.4 pg (28.0-33.3); Mean Corpuscular Volume 81.4 fL (83.0-100.0); Mean Platelet Volume 10.7 fL (9.4-12.4); Monocytes # 0.4 K/mcL (0.0-1.3); Monocytes % 8.3 %; Neutrophils # 2.9 K/mcL (1.6-8.9); Platelet Count 275 K/mcL (140-400); Red Blood Count 3.61 M/mcL (3.82-4.97); Red Cell Distribution Width 15.8 % (11.5-14.5); Segmented Neutrophils % 56.1 %; White Blood Count 5.1 K/mcL (4.3-11.1)
[2020-03-02 05:07] LABS: INR 1.2; Prothrombin Time 13.2 Seconds (9.4-12.1)
[2020-03-02 05:22] LABS: Calcium 8.5 mg/dL (8.6-10.3); Potassium 3.9 mEq/L (3.5-5.1)
[2020-03-02] MEDS: *HR* Heparin 5,000 UNIT/ML VIAL SQ SCH ×2 (06:03→17:21)
[2020-03-02] MEDS: Sacubitril/Valsartan 97/103 MG 1 TAB TABLET PO SCH ×2 (09:14→20:24)
[2020-03-02] MEDS: Aspirin Enteric Coated 81 MG Tablet PO SCH (09:14)
[2020-03-02] MEDS: amLODIPine 5 MG TABLET PO SCH (09:14)
[2020-03-02] MEDS: *HR* OxyCODONE Immed Rel 5 MG TABLET PO PRN (09:16)
[2020-03-02] MEDS: Insulin LISPRO 300 UNITS/3 ML VIAL SQ SCH ×3 (09:17→17:22)
[2020-03-02] MEDS: Pregabalin 75 MG CAPSULE PO SCH ×2 (14:00→20:23)
[2020-03-02] MEDS: DAPTOmycin 900 MG in 0.9 % Sodium Chloride 100 ML IVPB SCH (17:21)
[2020-03-02] MEDS ORDERED: Insulin DETEMIR 100 UNIT/ML X5UNITS SQ SCH (21:00)
[2020-03-03] MEDS: *HR* OxyCODONE Immed Rel 5 MG TABLET PO PRN ×2 (00:14→20:16)
[2020-03-03] MEDS: Piperacillin/Tazobactam 3.375 GM in 0.9 % Sodium Chloride Mini Bag 100 ML IVPB SCH ×4 (02:46→23:09)
[2020-03-03] MEDS: *HR* Heparin 5,000 UNIT/ML VIAL SQ SCH ×2 (04:45→18:11)
[2020-03-03 05:04] LABS: Basophils % 0.8 %; Eosinophils # 0.2 K/mcL (0.0-0.6); Eosinophils % 3.7 %; Hematocrit 31.9 % (35.3-44.9); Hemoglobin 9.3 g/dL (11.5-15.4); Immature Granulocytes % 0.2 % (0-4); Lymphocytes # 1.7 K/mcL (0.6-4.6); Lymphocytes % 33.6 %; Mean Corpuscular HGB Conc 29.2 g/dL (31.6-35.5); Mean Corpuscular Hemoglobin 24.1 pg (28.0-33.3); Mean Corpuscular Volume 82.6 fL (83.0-100.0); Mean Platelet Volume 10.3 fL (9.4-12.4); Monocytes # 0.4 K/mcL (0.0-1.3); Monocytes % 7.4 %; Neutrophils # 2.8 K/mcL (1.6-8.9); Platelet Count 288 K/mcL (140-400); Red Blood Count 3.86 M/mcL (3.82-4.97); Red Cell Distribution Width 15.7 % (11.5-14.5); Segmented Neutrophils % 54.3 %; White Blood Count 5.2 K/mcL (4.3-11.1)
[2020-03-03 05:24] LABS: BUN/Creatinine Ratio 21 (6-26); Blood Urea Nitrogen 24 mg/dL (6-20); Calcium 8.7 mg/dL (8.6-10.3); Carbon Dioxide 29 mEq/L (23-29); Chloride 105 mEq/L (98-107); Glucose 95 mg/dL (70-105); Osmolality,Calculated 290 (280-300); Potassium 4.1 mEq/L (3.5-5.1); Sodium 138 mEq/L (136-145); eGFR For African Americans > 60 (> 60); eGFR For Non-African Americans 50 (> 60)
[2020-03-03] MEDS: Insulin LISPRO 300 UNITS/3 ML VIAL SQ SCH ×3 (07:56→17:11)
[2020-03-03] MEDS: Aspirin Enteric Coated 81 MG Tablet PO SCH (08:12)
[2020-03-03] MEDS: amLODIPine 5 MG TABLET PO SCH (08:12)
[2020-03-03] MEDS: Sacubitril/Valsartan 97/103 MG 1 TAB TABLET PO SCH ×2 (08:12→20:15)
[2020-03-03] MEDS: *HR* Dextrose 50 % in Water (Syg) 50 ML SYRINGE IVP PRN ×2 (09:02→10:23)
[2020-03-03] MEDS ORDERED: *HR* FentaNYL (PF) 100 MCG/2 ML VIAL ONE (10:44)
[2020-03-03] MEDS ORDERED: Ondansetron 4 MG/2 ML VIAL ONE (10:44)
[2020-03-03] MEDS ORDERED: *HR* Propofol 200 MG/20 ML VIAL IVP ONE (10:44)
[2020-03-03] MEDS ORDERED: Dexamethasone 4 MG/ML VIAL ONE (10:47)
[2020-03-03] MEDS ORDERED: Bupivacaine/EPI 1:200k 0.25%PF 10 ML VIAL INFILT ONE (10:49)
[2020-03-03] MEDS ORDERED: *HR* Succinylcholine 200 MG/10 ML VIAL IVP ONE (10:50)
[2020-03-03] MEDS ORDERED: Lidocaine -MPF 2% 2 ML VIAL ONE (10:50)
[2020-03-03] MEDS ORDERED: *HR* OxyCODONE Immed Rel 5 MG TABLET PO PRN (10:54)
[2020-03-03] MEDS ORDERED: *HR* Metoprolol 5 MG/5 ML VIAL IVP PRN ×2 (10:54→15:04)
[2020-03-03] MEDS ORDERED: Ondansetron 4 MG/2 ML VIAL IVP ONE ×2 (10:54→15:04)
[2020-03-03] MEDS ORDERED: *HR* Promethazine 25 MG/ML VIAL IVP PRN (10:54)
[2020-03-03] MEDS ORDERED: *HR* HYDROmorphone PF 0.5 MG/0.5 ML SYRINGE IVP PRN (10:54)
[2020-03-03] MEDS ORDERED: Acetaminophen IV 1,000 MG/100 ML INFUS..BTL ONE (10:57)
[2020-03-03] MEDS ORDERED: EPHEDrine 50 MG/ML VIAL ONE (11:41)
[2020-03-03] MEDS ORDERED: *HR* PHENYLEPHRINE 1,000 MCG/10 ML SYRINGE IVP ONE (11:45)
[2020-03-03] MEDS: Pregabalin 75 MG CAPSULE PO SCH ×2 (13:36→20:15)
[2020-03-03] MEDS ORDERED: Dextrose Gel 15 GM/37.5 ML TUBE PO PRN ×2 (15:04)
[2020-03-03] MEDS ORDERED: Ondansetron 4 MG/2 ML VIAL IVP PRN (15:04)
[2020-03-03] MEDS ORDERED: Naloxone 0.4 MG/ML INJ IVP PRN (15:04)
[2020-03-03] MEDS ORDERED: D5% in Water 1,000 ML IVC PRN (15:04)
[2020-03-03] MEDS ORDERED: *HR* Dextrose 50 % in Water (Syg) 50 ML SYRINGE IVP PRN (15:04)
[2020-03-03] MEDS: DAPTOmycin 900 MG in 0.9 % Sodium Chloride 100 ML IVPB SCH (16:42)
[2020-03-03] MEDS ORDERED: Insulin DETEMIR 100 UNIT/ML X5UNITS SQ ONE (20:52)
[2020-03-03] MEDS ORDERED: Insulin DETEMIR 100 UNIT/ML X5UNITS SQ SCH (21:00)
[2020-03-03] MEDS: *HR* HYDROcodone/Acet 5/325 mg TABLET PO PRN (23:11)
[2020-03-04 02:33] LABS: Basophils % 0.2 %; Hematocrit 29.1 % (35.3-44.9); Hemoglobin 8.9 g/dL (11.5-15.4); Immature Granulocytes % 0.4 % (0-4); Lymphocytes # 0.5 K/mcL (0.6-4.6); Lymphocytes % 3.9 %; Mean Corpuscular HGB Conc 30.6 g/dL (31.6-35.5); Mean Corpuscular Volume 81.7 fL (83.0-100.0); Mean Platelet Volume 10.9 fL (9.4-12.4); Monocytes # 0.5 K/mcL (0.0-1.3); Monocytes % 4.3 %; Neutrophils # 11.3 K/mcL (1.6-8.9); Platelet Count 271 K/mcL (140-400); Red Blood Count 3.56 M/mcL (3.82-4.97); Red Cell Distribution Width 15.8 % (11.5-14.5); Segmented Neutrophils % 91.2 %
[2020-03-04 02:36] LABS: White Blood Count 12.4 K/mcL (4.3-11.1)
[2020-03-04 02:48] LABS: Calcium 8.1 mg/dL (8.6-10.3); Potassium 4.5 mEq/L (3.5-5.1)
[2020-03-04] MEDS: *HR* Heparin 5,000 UNIT/ML VIAL SQ SCH ×2 (06:56→17:39)
[2020-03-04] MEDS: *HR* OxyCODONE Immed Rel 5 MG TABLET PO PRN ×2 (07:47→11:35)
[2020-03-04] MEDS: Piperacillin/Tazobactam 3.375 GM in 0.9 % Sodium Chloride Mini Bag 100 ML IVPB SCH ×2 (07:48→16:17)
[2020-03-04] MEDS: Insulin LISPRO 300 UNITS/3 ML VIAL SQ SCH ×3 (07:52→17:36)
[2020-03-04] MEDS: Aspirin Enteric Coated 81 MG Tablet PO SCH (07:53)
[2020-03-04] MEDS: amLODIPine 5 MG TABLET PO SCH (07:54)
[2020-03-04] MEDS: Sacubitril/Valsartan 97/103 MG 1 TAB TABLET PO SCH ×2 (07:54→21:27)
[2020-03-04] MEDS: Pantoprazole 40 MG VIAL IVP SCH (10:04)
[2020-03-04] MEDS: *HR* HYDROcodone/Acet 5/325 mg TABLET PO PRN ×2 (10:04→14:28)
[2020-03-04] MEDS ORDERED: Naloxone 0.4 MG/ML INJ IVP PRN (11:07)
[2020-03-04] MEDS: Pregabalin 75 MG CAPSULE PO SCH ×2 (11:35→21:27)
[2020-03-04] MEDS ORDERED: *HR* OxyCODONE Immed Rel 5 MG TABLET PO SCH (12:00)
[2020-03-04] MEDS: DAPTOmycin 900 MG in 0.9 % Sodium Chloride 100 ML IVPB SCH (16:16)
[2020-03-04] MEDS: Insulin DETEMIR 100 UNIT/ML X5UNITS SQ SCH (21:30)
[2020-03-05] MEDS: Piperacillin/Tazobactam 3.375 GM in 0.9 % Sodium Chloride Mini Bag 100 ML IVPB SCH ×3 (00:03→17:12)
[2020-03-05 04:35] LABS: Basophils % 0.4 %; Eosinophils # 0.4 K/mcL (0.0-0.6); Eosinophils % 5.5 %; Hematocrit 27.7 % (35.3-44.9); Hemoglobin 8.1 g/dL (11.5-15.4); Immature Granulocytes % 0.4 % (0-4); Lymphocytes # 1.6 K/mcL (0.6-4.6); Lymphocytes % 21.7 %; Mean Corpuscular HGB Conc 29.2 g/dL (31.6-35.5); Mean Corpuscular Hemoglobin 24.3 pg (28.0-33.3); Mean Corpuscular Volume 83.2 fL (83.0-100.0); Mean Platelet Volume 10.5 fL (9.4-12.4); Monocytes # 0.6 K/mcL (0.0-1.3); Monocytes % 8.9 %; Neutrophils # 4.6 K/mcL (1.6-8.9); Platelet Count 237 K/mcL (140-400); Red Blood Count 3.33 M/mcL (3.82-4.97); Red Cell Distribution Width 16.6 % (11.5-14.5); Segmented Neutrophils % 63.1 %; White Blood Count 7.2 K/mcL (4.3-11.1)
[2020-03-05 05:08] LABS: Calcium 7.9 mg/dL (8.6-10.3); Potassium 4.2 mEq/L (3.5-5.1)
[2020-03-05] MEDS: *HR* Heparin 5,000 UNIT/ML VIAL SQ SCH ×2 (05:46→17:16)
[2020-03-05] MEDS: Insulin LISPRO 300 UNITS/3 ML VIAL SQ SCH ×3 (08:04→17:15)
[2020-03-05] MEDS: Aspirin Enteric Coated 81 MG Tablet PO SCH (10:12)
[2020-03-05] MEDS: Pantoprazole 40 MG VIAL IVP SCH (10:12)
[2020-03-05] MEDS: Sacubitril/Valsartan 97/103 MG 1 TAB TABLET PO SCH ×2 (10:12→21:29)
[2020-03-05] MEDS: amLODIPine 5 MG TABLET PO SCH (10:12)
[2020-03-05] MEDS: *HR* OxyCODONE Immed Rel 5 MG TABLET PO PRN (10:12)
[2020-03-05] MEDS: Pregabalin 75 MG CAPSULE PO SCH ×2 (12:05→21:28)
[2020-03-05] MEDS: DAPTOmycin 900 MG in 0.9 % Sodium Chloride 100 ML IVPB SCH (17:03)
[2020-03-05] MEDS: Acetaminophen 325 MG TABLET PO PRN (17:22)
[2020-03-05] MEDS: Insulin DETEMIR 100 UNIT/ML X5UNITS SQ SCH (21:28)
[2020-03-06] MEDS: Piperacillin/Tazobactam 3.375 GM in 0.9 % Sodium Chloride Mini Bag 100 ML IVPB SCH ×4 (00:37→23:41)
[2020-03-06 04:47] LABS: Basophils % 0.4 %; Eosinophils # 0.3 K/mcL (0.0-0.6); Eosinophils % 5.9 %; Hematocrit 26.7 % (35.3-44.9); Hemoglobin 7.8 g/dL (11.5-15.4); Immature Granulocytes % 0.4 % (0-4); Lymphocytes # 1.5 K/mcL (0.6-4.6); Lymphocytes % 27.7 %; Mean Corpuscular HGB Conc 29.2 g/dL (31.6-35.5); Mean Corpuscular Hemoglobin 24.1 pg (28.0-33.3); Mean Corpuscular Volume 82.7 fL (83.0-100.0); Mean Platelet Volume 10.9 fL (9.4-12.4); Monocytes # 0.6 K/mcL (0.0-1.3); Monocytes % 10.6 %; Neutrophils # 2.9 K/mcL (1.6-8.9); Platelet Count 229 K/mcL (140-400); Red Blood Count 3.23 M/mcL (3.82-4.97); Red Cell Distribution Width 16.5 % (11.5-14.5); White Blood Count 5.3 K/mcL (4.3-11.1)
[2020-03-06 05:05] LABS: BUN/Creatinine Ratio 21 (6-26); Blood Urea Nitrogen 24 mg/dL (6-20); Calcium 8.3 mg/dL (8.6-10.3); Carbon Dioxide 27 mEq/L (23-29); Chloride 104 mEq/L (98-107); Glucose 108 mg/dL (70-105); Osmolality,Calculated 291 (280-300); Sodium 138 mEq/L (136-145); eGFR For African Americans > 60 (> 60); eGFR For Non-African Americans 51 (> 60)
[2020-03-06] MEDS: *HR* Heparin 5,000 UNIT/ML VIAL SQ SCH ×2 (05:09→16:56)
[2020-03-06] MEDS: Acetaminophen 325 MG TABLET PO PRN ×2 (05:14→17:09)
[2020-03-06] MEDS: Insulin LISPRO 300 UNITS/3 ML VIAL SQ SCH ×3 (08:30→16:55)
[2020-03-06] MEDS: Aspirin Enteric Coated 81 MG Tablet PO SCH (08:36)
[2020-03-06] MEDS: Sacubitril/Valsartan 97/103 MG 1 TAB TABLET PO SCH ×2 (08:36→21:35)
[2020-03-06] MEDS: amLODIPine 5 MG TABLET PO SCH (08:36)
[2020-03-06] MEDS: Pantoprazole 40 MG VIAL IVP SCH (08:37)
[2020-03-06] MEDS: Pregabalin 75 MG CAPSULE PO SCH ×2 (12:34→21:35)
[2020-03-06] MEDS: DAPTOmycin 900 MG in 0.9 % Sodium Chloride 100 ML IVPB SCH (16:54)
[2020-03-06] MEDS: Insulin DETEMIR 100 UNIT/ML X5UNITS SQ SCH (21:35)
[2020-03-07] MEDS: Acetaminophen 325 MG TABLET PO PRN ×2 (03:17→17:27)
[2020-03-07] MEDS: *HR* Heparin 5,000 UNIT/ML VIAL SQ SCH ×2 (05:20→17:27)
[2020-03-07 07:47] LABS: Basophils % 0.3 %; Eosinophils # 0.3 K/mcL (0.0-0.6); Eosinophils % 4.4 %; Hemoglobin 8.6 g/dL (11.5-15.4); Immature Granulocytes % 0.3 % (0-4); Lymphocytes # 1.2 K/mcL (0.6-4.6); Lymphocytes % 18.3 %; Mean Corpuscular HGB Conc 29.7 g/dL (31.6-35.5); Mean Corpuscular Hemoglobin 24.2 pg (28.0-33.3); Mean Corpuscular Volume 81.7 fL (83.0-100.0); Mean Platelet Volume 10.6 fL (9.4-12.4); Monocytes # 0.4 K/mcL (0.0-1.3); Monocytes % 6.4 %; Neutrophils # 4.5 K/mcL (1.6-8.9); Platelet Count 258 K/mcL (140-400); Red Blood Count 3.55 M/mcL (3.82-4.97); Red Cell Distribution Width 16.4 % (11.5-14.5); Segmented Neutrophils % 70.3 %; White Blood Count 6.4 K/mcL (4.3-11.1)
[2020-03-07 08:11] LABS: BUN/Creatinine Ratio 18 (6-26); Blood Urea Nitrogen 18 mg/dL (6-20); Calcium 8.8 mg/dL (8.6-10.3); Carbon Dioxide 28 mEq/L (23-29); Chloride 105 mEq/L (98-107); Glucose 133 mg/dL (70-105); Osmolality,Calculated 292 (280-300); Potassium 4.1 mEq/L (3.5-5.1); Sodium 139 mEq/L (136-145); eGFR For African Americans > 60 (> 60); eGFR For Non-African Americans 59 (> 60)
[2020-03-07] MEDS: Piperacillin/Tazobactam 3.375 GM in 0.9 % Sodium Chloride Mini Bag 100 ML IVPB SCH ×2 (08:44→17:27)
[2020-03-07] MEDS: Insulin LISPRO 300 UNITS/3 ML VIAL SQ SCH ×3 (08:44→17:29)
[2020-03-07] MEDS: Sacubitril/Valsartan 97/103 MG 1 TAB TABLET PO SCH ×2 (08:45→21:49)
[2020-03-07] MEDS: Aspirin Enteric Coated 81 MG Tablet PO SCH (08:45)
[2020-03-07] MEDS: amLODIPine 5 MG TABLET PO SCH (08:45)
[2020-03-07] MEDS: Pantoprazole 40 MG VIAL IVP SCH (08:45)
[2020-03-07 11:03] LABS: Creatine Kinase 50 Units/L (30-223)
[2020-03-07] MEDS: Pregabalin 75 MG CAPSULE PO SCH ×2 (13:07→21:49)
[2020-03-07 14:27] LABS: C-Reactive Protein 79 mg/L (Less than 10)
[2020-03-07] MEDS ORDERED: *HR* OxyCODONE Immed Rel 5 MG TABLET PO PRN (15:55)
[2020-03-07] MEDS: DAPTOmycin 900 MG in 0.9 % Sodium Chloride 100 ML IVPB SCH (17:28)
[2020-03-07] MEDS: Lactobacillus 1 EACH CAP.SPRINK PO SCH (21:49)
[2020-03-07] MEDS: Insulin DETEMIR 100 UNIT/ML X5UNITS SQ SCH (21:56)
[2020-03-08] MEDS: Acetaminophen 325 MG TABLET PO PRN ×2 (00:30→09:22)
[2020-03-08] MEDS: Piperacillin/Tazobactam 3.375 GM in 0.9 % Sodium Chloride Mini Bag 100 ML IVPB SCH ×2 (00:31→09:13)
[2020-03-08] MEDS: *HR* Heparin 5,000 UNIT/ML VIAL SQ SCH ×2 (06:12→17:00)
[2020-03-08 06:40] LABS: Basophils % 0.4 %; Eosinophils # 0.3 K/mcL (0.0-0.6); Eosinophils % 5.6 %; Hematocrit 29.2 % (35.3-44.9); Hemoglobin 8.8 g/dL (11.5-15.4); Immature Granulocytes % 0.4 % (0-4); Lymphocytes # 1.5 K/mcL (0.6-4.6); Lymphocytes % 31.1 %; Mean Corpuscular HGB Conc 30.1 g/dL (31.6-35.5); Mean Corpuscular Hemoglobin 24.1 pg (28.0-33.3); Mean Platelet Volume 11.3 fL (9.4-12.4); Monocytes # 0.5 K/mcL (0.0-1.3); Monocytes % 9.9 %; Neutrophils # 2.6 K/mcL (1.6-8.9); Platelet Count 281 K/mcL (140-400); Red Blood Count 3.65 M/mcL (3.82-4.97); Red Cell Distribution Width 16.4 % (11.5-14.5); Segmented Neutrophils % 52.6 %; White Blood Count 4.9 K/mcL (4.3-11.1)
[2020-03-08 06:57] LABS: BUN/Creatinine Ratio 19 (6-26); Blood Urea Nitrogen 18 mg/dL (6-20); Calcium 8.9 mg/dL (8.6-10.3); Carbon Dioxide 28 mEq/L (23-29); Chloride 104 mEq/L (98-107); Glucose 125 mg/dL (70-105); Osmolality,Calculated 291 (280-300); Potassium 3.7 mEq/L (3.5-5.1); Sodium 139 mEq/L (136-145); eGFR For African Americans > 60 (> 60); eGFR For Non-African Americans > 60 (> 60)
[2020-03-08] MEDS: Insulin LISPRO 300 UNITS/3 ML VIAL SQ SCH ×3 (08:42→17:01)
[2020-03-08] MEDS: amLODIPine 5 MG TABLET PO SCH (09:14)
[2020-03-08] MEDS: Sacubitril/Valsartan 97/103 MG 1 TAB TABLET PO SCH ×2 (09:14→20:29)
[2020-03-08] MEDS: Aspirin Enteric Coated 81 MG Tablet PO SCH (09:14)
[2020-03-08] MEDS: Lactobacillus 1 EACH CAP.SPRINK PO SCH ×2 (09:14→20:28)
[2020-03-08] MEDS: Pregabalin 75 MG CAPSULE PO SCH ×2 (11:49→20:29)
[2020-03-08] MEDS: Amoxicillin 500 MG CAPSULE PO SCH ×2 (14:44→20:29)
[2020-03-08] MEDS: Sulfamethoxazole/Trimeth DS 1 EACH TABLET PO SCH (20:29)
[2020-03-08] MEDS: Insulin DETEMIR 100 UNIT/ML X5UNITS SQ SCH (20:29)
[2020-03-09] MEDS: *HR* Heparin 5,000 UNIT/ML VIAL SQ SCH ×2 (06:06→17:30)
[2020-03-09] MEDS: Insulin LISPRO 300 UNITS/3 ML VIAL SQ SCH ×3 (08:41→17:30)
[2020-03-09] MEDS: Sulfamethoxazole/Trimeth DS 1 EACH TABLET PO SCH ×2 (08:41→22:35)
[2020-03-09] MEDS: amLODIPine 5 MG TABLET PO SCH (08:41)
[2020-03-09] MEDS: Lactobacillus 1 EACH CAP.SPRINK PO SCH ×2 (08:41→22:35)
[2020-03-09] MEDS: Amoxicillin 500 MG CAPSULE PO SCH ×3 (08:41→22:35)
[2020-03-09] MEDS: Aspirin Enteric Coated 81 MG Tablet PO SCH (08:41)
[2020-03-09] MEDS: Sacubitril/Valsartan 97/103 MG 1 TAB TABLET PO SCH ×2 (08:41→22:35)
[2020-03-09] MEDS: Pregabalin 75 MG CAPSULE PO SCH ×2 (12:16→22:35)
[2020-03-09] MEDS: Insulin DETEMIR 100 UNIT/ML X5UNITS SQ SCH (22:39)
[2020-03-10] MEDS: *HR* Heparin 5,000 UNIT/ML VIAL SQ SCH ×2 (06:02→17:35)
[2020-03-10] MEDS: Insulin LISPRO 300 UNITS/3 ML VIAL SQ SCH ×3 (07:39→17:35)
[2020-03-10] MEDS: Lactobacillus 1 EACH CAP.SPRINK PO SCH ×2 (09:38→21:18)
[2020-03-10] MEDS: Aspirin Enteric Coated 81 MG Tablet PO SCH (09:39)
[2020-03-10] MEDS: Sacubitril/Valsartan 97/103 MG 1 TAB TABLET PO SCH ×2 (09:39→21:17)
[2020-03-10] MEDS: Sulfamethoxazole/Trimeth DS 1 EACH TABLET PO SCH ×2 (09:39→21:17)
[2020-03-10] MEDS: amLODIPine 5 MG TABLET PO SCH (09:39)
[2020-03-10] MEDS: Amoxicillin 500 MG CAPSULE PO SCH ×3 (09:39→21:18)
[2020-03-10] MEDS: Pregabalin 75 MG CAPSULE PO SCH ×2 (12:17→21:17)
[2020-03-10] MEDS: Insulin DETEMIR 100 UNIT/ML X5UNITS SQ SCH (21:21)
[2020-03-11] MEDS: *HR* Heparin 5,000 UNIT/ML VIAL SQ SCH ×2 (06:44→18:42)
[2020-03-11] MEDS: Insulin LISPRO 300 UNITS/3 ML VIAL SQ SCH ×3 (07:53→16:48)
[2020-03-11] MEDS: Amoxicillin 500 MG CAPSULE PO SCH ×3 (08:50→22:24)
[2020-03-11] MEDS: Sulfamethoxazole/Trimeth DS 1 EACH TABLET PO SCH ×2 (08:51→22:23)
[2020-03-11] MEDS: Sacubitril/Valsartan 97/103 MG 1 TAB TABLET PO SCH ×2 (08:51→22:24)
[2020-03-11] MEDS: Aspirin Enteric Coated 81 MG Tablet PO SCH (08:51)
[2020-03-11] MEDS: Lactobacillus 1 EACH CAP.SPRINK PO SCH ×2 (08:51→22:24)
[2020-03-11] MEDS: amLODIPine 5 MG TABLET PO SCH (08:51)
[2020-03-11] MEDS: Pregabalin 75 MG CAPSULE PO SCH ×2 (13:14→22:23)
[2020-03-11] MEDS: Nystatin POWDER 30 GM BOTTLE TP SCH ×2 (16:49→22:25)
[2020-03-11] MEDS: Insulin DETEMIR 100 UNIT/ML X5UNITS SQ SCH (22:23)
[2020-03-12] MEDS ORDERED: metroNIDAZOLE 500 MG TABLET PO ONE (04:26)
[2020-03-12] MEDS: *HR* Heparin 5,000 UNIT/ML VIAL SQ SCH ×2 (05:11→17:21)
[2020-03-12] MEDS: Insulin LISPRO 300 UNITS/3 ML VIAL SQ SCH ×3 (08:35→17:21)
[2020-03-12] MEDS: Aspirin Enteric Coated 81 MG Tablet PO SCH (08:36)
[2020-03-12] MEDS: Sulfamethoxazole/Trimeth DS 1 EACH TABLET PO SCH ×2 (08:36→21:11)
[2020-03-12] MEDS: amLODIPine 5 MG TABLET PO SCH (08:36)
[2020-03-12] MEDS: Sacubitril/Valsartan 97/103 MG 1 TAB TABLET PO SCH ×2 (08:36→21:11)
[2020-03-12] MEDS: Lactobacillus 1 EACH CAP.SPRINK PO SCH ×2 (08:36→21:11)
[2020-03-12] MEDS: Amoxicillin 500 MG CAPSULE PO SCH ×3 (08:36→21:11)
[2020-03-12] MEDS: Nystatin POWDER 30 GM BOTTLE TP SCH ×2 (08:38→21:38)
[2020-03-12] MEDS: Pregabalin 75 MG CAPSULE PO SCH ×2 (11:57→21:11)
[2020-03-12] MEDS: Insulin DETEMIR 100 UNIT/ML X5UNITS SQ SCH (21:11)
[2020-03-13] MEDS: *HR* Heparin 5,000 UNIT/ML VIAL SQ SCH ×2 (06:31→17:27)
[2020-03-13] MEDS: Insulin LISPRO 300 UNITS/3 ML VIAL SQ SCH ×3 (08:09→17:28)
[2020-03-13] MEDS: Sulfamethoxazole/Trimeth DS 1 EACH TABLET PO SCH ×2 (08:10→21:19)
[2020-03-13] MEDS: Sacubitril/Valsartan 97/103 MG 1 TAB TABLET PO SCH ×2 (08:10→21:19)
[2020-03-13] MEDS: Amoxicillin 500 MG CAPSULE PO SCH ×3 (08:10→21:19)
[2020-03-13] MEDS: Aspirin Enteric Coated 81 MG Tablet PO SCH (08:10)
[2020-03-13] MEDS: Lactobacillus 1 EACH CAP.SPRINK PO SCH ×2 (08:10→21:20)
[2020-03-13] MEDS: amLODIPine 5 MG TABLET PO SCH (08:10)
[2020-03-13] MEDS: Nystatin POWDER 30 GM BOTTLE TP SCH ×2 (08:11→21:20)
[2020-03-13] MEDS: Pregabalin 75 MG CAPSULE PO SCH ×2 (13:15→21:20)
[2020-03-13] MEDS: Insulin DETEMIR 100 UNIT/ML X5UNITS SQ SCH (21:21)
[2020-03-14] MEDS: *HR* Heparin 5,000 UNIT/ML VIAL SQ SCH ×2 (05:40→17:18)
[2020-03-14] MEDS: Amoxicillin 500 MG CAPSULE PO SCH ×3 (08:50→21:04)
[2020-03-14] MEDS: Sulfamethoxazole/Trimeth DS 1 EACH TABLET PO SCH ×2 (08:51→21:04)
[2020-03-14] MEDS: Insulin LISPRO 300 UNITS/3 ML VIAL SQ SCH ×4 (08:51→21:04)
[2020-03-14] MEDS: amLODIPine 5 MG TABLET PO SCH (08:51)
[2020-03-14] MEDS: Sacubitril/Valsartan 97/103 MG 1 TAB TABLET PO SCH ×2 (08:51→21:04)
[2020-03-14] MEDS: Lactobacillus 1 EACH CAP.SPRINK PO SCH ×2 (08:51→21:04)
[2020-03-14] MEDS: Aspirin Enteric Coated 81 MG Tablet PO SCH (08:53)
[2020-03-14] MEDS: Nystatin POWDER 30 GM BOTTLE TP SCH ×2 (08:53→21:05)
[2020-03-14] MEDS: Pregabalin 75 MG CAPSULE PO SCH ×2 (14:06→21:04)
[2020-03-14] MEDS: Insulin DETEMIR 100 UNIT/ML X5UNITS SQ SCH (21:05)
[2020-03-15] MEDS: *HR* Heparin 5,000 UNIT/ML VIAL SQ SCH ×2 (05:39→17:11)
[2020-03-15] MEDS: Insulin LISPRO 300 UNITS/3 ML VIAL SQ SCH ×4 (08:55→20:53)
[2020-03-15] MEDS: Amoxicillin 500 MG CAPSULE PO SCH ×3 (08:56→21:14)
[2020-03-15] MEDS: Sacubitril/Valsartan 97/103 MG 1 TAB TABLET PO SCH ×2 (08:56→21:15)
[2020-03-15] MEDS: Sulfamethoxazole/Trimeth DS 1 EACH TABLET PO SCH ×2 (08:56→21:30)
[2020-03-15] MEDS: amLODIPine 5 MG TABLET PO SCH (08:56)
[2020-03-15] MEDS: Aspirin Enteric Coated 81 MG Tablet PO SCH (08:56)
[2020-03-15] MEDS: Lactobacillus 1 EACH CAP.SPRINK PO SCH ×2 (08:56→21:13)
[2020-03-15] MEDS: Nystatin POWDER 30 GM BOTTLE TP SCH ×2 (08:58→21:30)
[2020-03-15] MEDS: Pregabalin 75 MG CAPSULE PO SCH ×2 (12:24→21:14)
[2020-03-15] MEDS: Insulin DETEMIR 100 UNIT/ML X5UNITS SQ SCH (21:15)
[2020-03-16] MEDS: *HR* Heparin 5,000 UNIT/ML VIAL SQ SCH ×2 (05:34→17:54)
[2020-03-16] MEDS: Sulfamethoxazole/Trimeth DS 1 EACH TABLET PO SCH ×2 (08:27→21:18)
[2020-03-16] MEDS: Lactobacillus 1 EACH CAP.SPRINK PO SCH ×2 (08:27→21:18)
[2020-03-16] MEDS: Aspirin Enteric Coated 81 MG Tablet PO SCH (08:27)
[2020-03-16] MEDS: Sacubitril/Valsartan 97/103 MG 1 TAB TABLET PO SCH ×2 (08:27→21:18)
[2020-03-16] MEDS: amLODIPine 5 MG TABLET PO SCH (08:27)
[2020-03-16] MEDS: Amoxicillin 500 MG CAPSULE PO SCH ×3 (08:27→21:18)
[2020-03-16] MEDS: Insulin LISPRO 300 UNITS/3 ML VIAL SQ SCH ×4 (08:28→21:18)
[2020-03-16] MEDS: Nystatin POWDER 30 GM BOTTLE TP SCH ×2 (08:32→21:19)
[2020-03-16] MEDS: Pregabalin 75 MG CAPSULE PO SCH ×2 (12:22→21:18)
[2020-03-16] MEDS: Insulin DETEMIR 100 UNIT/ML X5UNITS SQ SCH (21:19)
[2020-03-17] MEDS: *HR* Heparin 5,000 UNIT/ML VIAL SQ SCH (06:06)
[2020-03-17] MEDS: Insulin LISPRO 300 UNITS/3 ML VIAL SQ SCH ×2 (09:46→12:52)
[2020-03-17] MEDS: Aspirin Enteric Coated 81 MG Tablet PO SCH (09:51)
[2020-03-17] MEDS: amLODIPine 5 MG TABLET PO SCH (09:51)
[2020-03-17] MEDS: Lactobacillus 1 EACH CAP.SPRINK PO SCH (09:51)
[2020-03-17] MEDS: Sacubitril/Valsartan 97/103 MG 1 TAB TABLET PO SCH (09:51)
[2020-03-17] MEDS: Nystatin POWDER 30 GM BOTTLE TP SCH (11:20)
[2020-03-17 12:02] VITALS: BP 148/82
[2020-03-17] MEDS: Pregabalin 75 MG CAPSULE PO SCH (12:52)
== END 2020-03-17 14:50 | DRG 364 ==
LOC: EMEROOARM 14:51 → 3ANU 14:51 → SUATTDRO 17:19 → 3ANU 18:48 → SUATTDRO 02-27 17:08
PROVIDERS: ADMIT Student in an Organized Health Care Education/Training Program; ATTEND Internal Medicine

== ENCOUNTER 2020-05-26 18:07 | Inpatient (IN) ==
[2020-05-26] MEDS ORDERED: Piperacillin/Tazobactam 3.375 GM in 0.9 % Sodium Chloride Mini Bag 100 ML IVPB ONE (18:27)
[2020-05-26] MEDS ORDERED: 0.9 % Sodium Chloride 1,000 ML IVC STA (18:28)
[2020-05-26] MEDS ORDERED: Isovue-370 500 ML BOTTLE IVP ONE (18:36)
[2020-05-26 19:43] LABS: INR 1.5; Prothrombin Time 16.5 Seconds (9.4-12.1)
[2020-05-26 19:46] LABS: Activated Partial Thrombo Time 36.4 Seconds (26.0-36.0)
[2020-05-26 19:51] LABS: Basophils % 0.2 %; Eosinophils % 0.1 %; Hematocrit 27.7 % (35.3-44.9); Hemoglobin 8.6 g/dL (11.5-15.4); Immature Granulocytes % 0.6 % (0-4); Lymphocytes % 6.8 %; Mean Corpuscular Hemoglobin 24.2 pg (28.0-33.3); Mean Corpuscular Volume 77.8 fL (83.0-100.0); Mean Platelet Volume 11.7 fL (9.4-12.4); Monocytes % 8.6 %; Platelet Count 151 K/mcL (140-400); Red Blood Count 3.56 M/mcL (3.82-4.97); Red Cell Distribution Width 17.2 % (11.5-14.5); Segmented Neutrophils % 83.7 %; White Blood Count 9.5 K/mcL (4.3-11.1)
[2020-05-26 19:52] LABS: Lymphocytes # 0.7 K/mcL (0.6-4.6); Monocytes # 0.8 K/mcL (0.0-1.3); Neutrophils # 7.9 K/mcL (1.6-8.9)
[2020-05-26 19:52] LABS: Bacteria,Urine Many per hpf (None-Few); Bilirubin,Urine Negative (Negative); Blood,Urine Moderate (Negative); Clarity,Urine Turbid (Clear); Color,Urine Yellow (Yellow); Glucose,Urine (UA) Normal (Normal); Granular Casts,Urine Few per lpf (None Seen); Ketones,Urine Negative (Negative); Leukocyte Esterase,Urine Large (Negative); Mucus,Urine Few per lpf (None-Few); Nitrite,Urine Positive (Negative); PH,Urine 5.5 pH Units (5.0-8.0); Protein,Urine >=300 mg/dL (Neg-Trace); Specific Gravity,Urine 1.022 (1.010-1.025); Squamous Epithelial Cell,Urine Few per hpf (None-Few); Urobilinogen,Urine Normal (Normal); WBC,Urine 50-100 per hpf (0-3)
[2020-05-26 19:56] LABS: Albumin 2.8 g/dL (3.5-5.7); Albumin/Globulin Ratio 0.7 (1.1-2.2); Bilirubin,Direct 0.2 mg/dL (0.0-0.2); Bilirubin,Indirect 0.3 mg/dL (0.0-1.0); Bilirubin,Total 0.5 mg/dL (0.3-1.0); Calcium 8.1 mg/dL (8.6-10.3); Globulin 4.1 g/dL (2.4-3.5); Magnesium 1.5 mg/dL (1.6-2.6); Phosphorous 2.9 mg/dL (2.7-4.5); Potassium 3.9 mEq/L (3.5-5.1); Total Protein 6.9 g/dL (6.4-8.9); Troponin I 0.04 ng/mL (< 0.04)
[2020-05-26 20:00] LABS: Platelet Estimate Normal (Normal)
[2020-05-26 21:50] LABS: Adenovirus Not Detected (Not Detect); Bordetella Pertussis Not Detected (Not Detect); Chlamydophila pneumoniae Not Detected (Not Detect); Coronavirus 229E Not Detected (Not Detect); Coronavirus HKU1 Not Detected (Not Detect); Coronavirus NL63 Not Detected (Not Detect); Coronavirus OC43 Not Detected (Not Detect); Human Metapneumovirus Not Detected (Not Detect); Human Rhinovirus/Enterovirus Not Detected (Not Detect); Influenza A Subtype 2009 H1 Not Detected (Not Detect); Influenza B Not Detected (Not Detect); Mycoplasma pneumoniae Not Detected (Not Detect); Parainfluenza Virus 1 Not Detected (Not Detect); Parainfluenza Virus 2 Not Detected (Not Detect); Parainfluenza Virus 3 Not Detected (Not Detect); Parainfluenza Virus 4 Not Detected (Not Detect); Respiratory Syncytial Virus Not Detected (Not Detect)
[2020-05-26] MEDS ORDERED: Naloxone 0.4 MG/ML INJ IVP PRN (23:16)
[2020-05-26] MEDS ORDERED: Magnesium Sulfate 1 GM/102 ML PIGGYBACK IVPB ONE (23:22)
[2020-05-26] MEDS ORDERED: Perflutren Lipid Microsphere 1.3 ML in 0.9 % Sodium Chloride 8.7 ML IVP PRN (23:54)
[2020-05-27] MEDS: Ipratropium/Albuterol Neb 3 ML IH SCH ×5 (00:26→22:29)
[2020-05-27 00:31] LABS: ABG Base Excess 1 mEq/L (-2 to 3); ABG HCO3 26 mEq/L (21-27); ABG Oxygen Saturation 97 % (95-98); ABG PCO2 41 mmHg (35-45); ABG PH 7.41 pH Units (7.32-7.45); ABG PO2 87 mmHg (85-104); ABG TCO2 27 mEq/L (20-26)
[2020-05-27] MEDS: Azithromycin 250 MG TABLET PO SCH (00:40)
[2020-05-27] MEDS ORDERED: Dextrose Gel 15 GM/37.5 ML TUBE PO PRN ×2 (00:41)
[2020-05-27] MEDS ORDERED: *HR* Dextrose 50 % in Water (Vial) 50 ML VIAL IVP PRN (00:41)
[2020-05-27] MEDS ORDERED: D5% in Water 1,000 ML IVC PRN (00:41)
[2020-05-27] MEDS ORDERED: Insulin DETEMIR 100 UNIT/ML X5UNITS SQ SCH (00:45)
[2020-05-27 00:57] LABS: Basophils % 0.3 %; Eosinophils % 0.1 %; Hemoglobin 7.4 g/dL (11.5-15.4); Red Cell Distribution Width 17.2 % (11.5-14.5)
[2020-05-27 00:59] LABS: Hematocrit 25.3 % (35.3-44.9); Immature Granulocytes % 0.3 % (0-4); Immature Platelets 6.8 % (1.1-6.1); Lymphocytes # 0.8 K/mcL (0.6-4.6); Lymphocytes % 10.3 %; Mean Corpuscular HGB Conc 29.2 g/dL (31.6-35.5); Mean Corpuscular Hemoglobin 23.1 pg (28.0-33.3); Mean Corpuscular Volume 79.1 fL (83.0-100.0); Mean Platelet Volume 12.5 fL (9.4-12.4); Monocytes # 0.6 K/mcL (0.0-1.3); Monocytes % 8.4 %; Platelet Count 127 K/mcL (140-400); Segmented Neutrophils % 80.6 %; White Blood Count 7.4 K/mcL (4.3-11.1)
[2020-05-27 01:04] LABS: INR 1.5; Prothrombin Time 17.5 Seconds (9.4-12.1)
[2020-05-27 01:18] LABS: Alanine Aminotransferase 11 Units/L (7-52); Albumin 2.5 g/dL (3.5-5.7); Albumin/Globulin Ratio 0.7 (1.1-2.2); Alkaline Phosphatase 97 Units/L (34-104); Aspartate Amino Transferase 11 Units/L (13-39); BUN/Creatinine Ratio 21 (6-26); Bilirubin,Total 0.6 mg/dL (0.3-1.0); Blood Urea Nitrogen 23 mg/dL (6-20); Carbon Dioxide 24 mEq/L (23-29); Chloride 107 mEq/L (98-107); Globulin 3.6 g/dL (2.4-3.5); Glucose 87 mg/dL (70-105); Magnesium 1.6 mg/dL (1.6-2.6); Osmolality,Calculated 287 (280-300); Phosphorous 3.8 mg/dL (2.7-4.5); Potassium 3.7 mEq/L (3.5-5.1); Sodium 137 mEq/L (136-145); Total Protein 6.1 g/dL (6.4-8.9); eGFR For African Americans > 60 (> 60); eGFR For Non-African Americans 52 (> 60)
[2020-05-27 01:42] LABS: Folate 17.5 ng/mL (3.0-16.0)
[2020-05-27 01:44] LABS: C-Reactive Protein 187 mg/L (Less than 10); Ferritin 132 ng/mL (10-120); Iron < 10 mcg/dL (50-170); Transferrin 141 mg/dL (203-362)
[2020-05-27] MEDS ORDERED: Acetaminophen IV 1,000 MG/100 ML INFUS..BTL IVPB ONE (03:21)
[2020-05-27] MEDS: Ondansetron 4 MG/2 ML VIAL IVP PRN ×2 (03:41→13:42)
[2020-05-27] MEDS: Piperacillin/Tazobactam 3.375 GM in 0.9 % Sodium Chloride Mini Bag 100 ML IVPB SCH ×3 (05:12→21:22)
[2020-05-27] MEDS: Insulin LISPRO 300 UNITS/3 ML VIAL SQ SCH ×4 (05:32→21:23)
[2020-05-27] MEDS ORDERED: 0.9 % Sodium Chloride 500 ML IVC ONE (05:40)
[2020-05-27 09:13] LABS: Hemoglobin 7.3 g/dL (11.5-15.4)
[2020-05-27 09:15] LABS: Hematocrit 25.1 % (35.3-44.9)
[2020-05-27 13:53] LABS: Acinetobacter baumannii by PCR Not Detected (Not Detect); Candida albicans by PCR Not Detected (Not Detect); Candida glabrata by PCR Not Detected (Not Detect); Candida krusei by PCR Not Detected (Not Detect); Candida parapsilosis by PCR Not Detected (Not Detect); Candida tropicalis by PCR Not Detected (Not Detect); Enterobacter cloacae Cmplx PCR Not Detected (Not Detect); Enterobacteriaceae by PCR Not Detected (Not Detect); Enterococcus by PCR Not Detected (Not Detect); Escherichia coli by PCR Not Detected (Not Detect); Klebsiella oxytoca by PCR Not Detected (Not Detect); Klebsiella pneumoniae by PCR Not Detected (Not Detect); Proteus by PCR Not Detected (Not Detect); Pseudomonas aeruginosa by PCR Not Detected (Not Detect); Serratia marcescens by PCR Not Detected (Not Detect); Staphylococcus aureus by PCR DETECTED (Not Detect); Streptococcus agalactiae(B)PCR Not Detected (Not Detect); Streptococcus by PCR Not Detected (Not Detect); Streptococcus pneumoniae PCR Not Detected (Not Detect); Streptococcus pyogenes (A) PCR Not Detected (Not Detect); mecA Methicillin-Resist Gene DETECTED (Not Detect)
[2020-05-27] MEDS ORDERED: Iron Sucrose Complex 200 MG in 0.9 % Sodium Chloride 100 ML IVPB ONE (16:00)
[2020-05-27] MEDS: Acetaminophen 325 MG TABLET PO PRN (17:08)
[2020-05-27] MEDS: Cyanocobalamin (B-12) 1,000 MCG/ML VIAL IM SCH (17:09)
[2020-05-27] MEDS: *HR* Heparin 5,000 UNIT/ML VIAL SQ SCH (18:53)
[2020-05-27] MEDS: Sacubitril/Valsartan 97/103 MG 1 TAB TABLET PO SCH (21:22)
[2020-05-27] MEDS: Insulin DETEMIR 100 UNIT/ML X5UNITS SQ SCH (21:23)
[2020-05-28] MEDS: Ipratropium/Albuterol Neb 3 ML IH SCH ×4 (04:06→21:50)
[2020-05-28] MEDS: *HR* Heparin 5,000 UNIT/ML VIAL SQ SCH ×3 (05:02→18:45)
[2020-05-28] MEDS: Acetaminophen 325 MG TABLET PO PRN ×2 (05:02→20:55)
[2020-05-28] MEDS: Piperacillin/Tazobactam 3.375 GM in 0.9 % Sodium Chloride Mini Bag 100 ML IVPB SCH ×3 (05:03→22:28)
[2020-05-28] MEDS ORDERED: Morphine Sulfate 2 MG/ML SYRINGE IVP ONE (06:17)
[2020-05-28] MEDS: Insulin LISPRO 300 UNITS/3 ML VIAL SQ SCH ×4 (07:34→20:56)
[2020-05-28] MEDS: Azithromycin 250 MG TABLET PO SCH (08:54)
[2020-05-28] MEDS: Cyanocobalamin (B-12) 1,000 MCG/ML VIAL IM SCH (08:55)
[2020-05-28] MEDS: Sacubitril/Valsartan 97/103 MG 1 TAB TABLET PO SCH ×2 (08:55→20:55)
[2020-05-28 11:35] LABS: Basophils % 0.2 %; Red Cell Distribution Width 17.2 % (11.5-14.5)
[2020-05-28 11:36] LABS: Eosinophils # 0.1 K/mcL (0.0-0.6); Eosinophils % 1.9 %; Hematocrit 22.2 % (35.3-44.9); Hemoglobin 6.6 g/dL (11.5-15.4); Immature Granulocytes % 0.4 % (0-4); Lymphocytes # 0.9 K/mcL (0.6-4.6); Lymphocytes % 18.4 %; Mean Corpuscular HGB Conc 29.7 g/dL (31.6-35.5); Mean Corpuscular Hemoglobin 24.4 pg (28.0-33.3); Mean Corpuscular Volume 82.2 fL (83.0-100.0); Mean Platelet Volume 13.1 fL (9.4-12.4); Monocytes # 0.4 K/mcL (0.0-1.3); Neutrophils # 3.3 K/mcL (1.6-8.9); Platelet Count 133 K/mcL (140-400); Segmented Neutrophils % 70.1 %; White Blood Count 4.7 K/mcL (4.3-11.1)
[2020-05-28 11:56] LABS: Calcium 8.2 mg/dL (8.6-10.3); Potassium 3.9 mEq/L (3.5-5.1)
[2020-05-28] MEDS: Pregabalin 75 MG CAPSULE PO SCH ×2 (13:15→20:55)
[2020-05-28] MEDS ORDERED: 0.9 % Sodium Chloride 500 ML ONE (18:39)
[2020-05-28] MEDS: Insulin DETEMIR 100 UNIT/ML X5UNITS SQ SCH (20:56)
[2020-05-28 23:57] LABS: Hematocrit 23.8 % (35.3-44.9)
[2020-05-29 00:21] LABS: Basophils % 0.5 %; Eosinophils # 0.2 K/mcL (0.0-0.6); Eosinophils % 3.9 %; Immature Granulocytes % 0.3 % (0-4); Lymphocytes # 1.1 K/mcL (0.6-4.6); Lymphocytes % 29.2 %; Mean Corpuscular HGB Conc 29.2 g/dL (31.6-35.5); Mean Corpuscular Hemoglobin 23.7 pg (28.0-33.3); Mean Corpuscular Volume 81.1 fL (83.0-100.0); Monocytes # 0.4 K/mcL (0.0-1.3); Monocytes % 11.6 %; Neutrophils # 2.1 K/mcL (1.6-8.9); Platelet Count 121 K/mcL (140-400); Red Blood Count 2.91 M/mcL (3.82-4.97); Red Cell Distribution Width 17.2 % (11.5-14.5); Segmented Neutrophils % 54.5 %; White Blood Count 3.8 K/mcL (4.3-11.1)
[2020-05-29 00:33] LABS: Albumin 2.5 g/dL (3.5-5.7); Albumin/Globulin Ratio 0.7 (1.1-2.2); Bilirubin,Total 0.5 mg/dL (0.3-1.0); Calcium 7.8 mg/dL (8.6-10.3); Globulin 3.8 g/dL (2.4-3.5); Potassium 4.3 mEq/L (3.5-5.1); Total Protein 6.3 g/dL (6.4-8.9)
[2020-05-29] MEDS: Ipratropium/Albuterol Neb 3 ML IH SCH ×4 (03:32→22:05)
[2020-05-29 05:21] LABS: Basophils % 0.5 %; Eosinophils # 0.2 K/mcL (0.0-0.6); Eosinophils % 4.2 %; Hematocrit 24.3 % (35.3-44.9); Hemoglobin 7.1 g/dL (11.5-15.4); Immature Granulocytes % 0.3 % (0-4); Lymphocytes % 25.1 %; Mean Corpuscular HGB Conc 29.2 g/dL (31.6-35.5); Mean Corpuscular Hemoglobin 23.7 pg (28.0-33.3); Mean Corpuscular Volume 81.3 fL (83.0-100.0); Mean Platelet Volume 12.2 fL (9.4-12.4); Monocytes # 0.4 K/mcL (0.0-1.3); Monocytes % 11.6 %; Neutrophils # 2.2 K/mcL (1.6-8.9); Platelet Count 133 K/mcL (140-400); Red Blood Count 2.99 M/mcL (3.82-4.97); Red Cell Distribution Width 17.2 % (11.5-14.5); Segmented Neutrophils % 58.3 %; White Blood Count 3.8 K/mcL (4.3-11.1)
[2020-05-29] MEDS: *HR* Heparin 5,000 UNIT/ML VIAL SQ SCH ×2 (05:24→16:56)
[2020-05-29] MEDS: Piperacillin/Tazobactam 3.375 GM in 0.9 % Sodium Chloride Mini Bag 100 ML IVPB SCH ×3 (05:58→21:06)
[2020-05-29] MEDS: Azithromycin 250 MG TABLET PO SCH (08:10)
[2020-05-29] MEDS: Aspirin 325 MG TABLET PO SCH (08:10)
[2020-05-29] MEDS: Sacubitril/Valsartan 97/103 MG 1 TAB TABLET PO SCH (08:11)
[2020-05-29] MEDS: Pregabalin 75 MG CAPSULE PO SCH ×2 (08:11→21:05)
[2020-05-29] MEDS: Insulin LISPRO 300 UNITS/3 ML VIAL SQ SCH ×4 (08:14→20:49)
[2020-05-29] MEDS: Cyanocobalamin (B-12) 1,000 MCG/ML VIAL IM SCH (08:15)
[2020-05-29 08:22] LABS: Albumin 2.5 g/dL (3.5-5.7); Albumin/Globulin Ratio 0.7 (1.1-2.2); Bilirubin,Total 0.5 mg/dL (0.3-1.0); Calcium 8.2 mg/dL (8.6-10.3); Globulin 3.8 g/dL (2.4-3.5); Potassium 4.1 mEq/L (3.5-5.1); Total Protein 6.3 g/dL (6.4-8.9)
[2020-05-29] MEDS ORDERED: Aminoglycoside Consult 1 EACH MC ONE (09:43)
[2020-05-29] MEDS: Pantoprazole 40 MG VIAL IVP SCH (12:09)
[2020-05-29] MEDS: 0.9 % Sodium Chloride 1,000 ML IVC SCH (12:09)
[2020-05-29 12:22] LABS: Appearance of Body Fluid Cloudy (Clear); Source of Body Fluid Right lower extremit; Volume of Body Fluid 1 mL
[2020-05-29] MEDS ORDERED: Ondansetron Oral Soln 2 MG/2.5 ML ORAL.SYG PO ONE (16:22)
[2020-05-29] MEDS: Acetaminophen 325 MG TABLET PO PRN (16:54)
[2020-05-29 17:13] LABS: Bilirubin,Urine Negative (Negative); Blood,Urine Moderate (Negative); Clarity,Urine Clear (Clear); Color,Urine Yellow (Yellow); Glucose,Urine (UA) Normal (Normal); Ketones,Urine Negative (Negative); Leukocyte Esterase,Urine Small (Negative); Mucus,Urine Few per lpf (None-Few); Nitrite,Urine Negative (Negative); PH,Urine 5.5 pH Units (5.0-8.0); Protein,Urine 50 mg/dL (Neg-Trace); Specific Gravity,Urine 1.025 (1.010-1.025); Squamous Epithelial Cell,Urine Few per hpf (None-Few)
[2020-05-29 17:21] LABS: Protein/Creatinine Ratio,Urine 0.87 mg/mg (0.00-0.20); Sodium, Urine 65.4 mEq/L
[2020-05-29] MEDS ORDERED: Iron Sucrose Complex 200 MG in 0.9 % Sodium Chloride 100 ML IVPB ONE (17:35)
[2020-05-29] MEDS ORDERED: Vancomycin 1,500 MG/265 ML IV.SOLN IVPB ONE (18:30)
[2020-05-29] MEDS: Insulin DETEMIR 100 UNIT/ML X5UNITS SQ SCH (21:06)
[2020-05-30 01:56] LABS: Red Cell Distribution Width 17.2 % (11.5-14.5)
[2020-05-30 01:57] LABS: Basophils % 0.5 %; Eosinophils # 0.2 K/mcL (0.0-0.6); Eosinophils % 3.9 %; Hematocrit 25.2 % (35.3-44.9); Hemoglobin 7.3 g/dL (11.5-15.4); Immature Granulocytes % 0.5 % (0-4); Lymphocytes # 0.9 K/mcL (0.6-4.6); Lymphocytes % 20.7 %; Mean Corpuscular Hemoglobin 23.9 pg (28.0-33.3); Mean Corpuscular Volume 82.4 fL (83.0-100.0); Mean Platelet Volume 12.2 fL (9.4-12.4); Monocytes # 0.5 K/mcL (0.0-1.3); Monocytes % 10.5 %; Neutrophils # 2.8 K/mcL (1.6-8.9); Platelet Count 142 K/mcL (140-400); Red Blood Count 3.06 M/mcL (3.82-4.97); Segmented Neutrophils % 63.9 %; White Blood Count 4.4 K/mcL (4.3-11.1)
[2020-05-30 02:16] LABS: Albumin 2.5 g/dL (3.5-5.7); Albumin/Globulin Ratio 0.7 (1.1-2.2); Bilirubin,Total 0.4 mg/dL (0.3-1.0); Calcium 7.9 mg/dL (8.6-10.3); Globulin 3.8 g/dL (2.4-3.5); Potassium 4.5 mEq/L (3.5-5.1); Total Protein 6.3 g/dL (6.4-8.9)
[2020-05-30 02:42] LABS: Platelet Estimate Normal (Normal)
[2020-05-30] MEDS: Ipratropium/Albuterol Neb 3 ML IH SCH ×4 (04:32→22:24)
[2020-05-30] MEDS: *HR* Heparin 5,000 UNIT/ML VIAL SQ SCH ×2 (05:21→16:29)
[2020-05-30] MEDS: Piperacillin/Tazobactam 3.375 GM in 0.9 % Sodium Chloride Mini Bag 100 ML IVPB SCH ×3 (05:26→22:41)
[2020-05-30] MEDS: 0.9 % Sodium Chloride 1,000 ML IVC SCH (05:27)
[2020-05-30] MEDS: Insulin LISPRO 300 UNITS/3 ML VIAL SQ SCH ×4 (08:05→21:30)
[2020-05-30] MEDS: Pregabalin 75 MG CAPSULE PO SCH ×2 (10:00→22:39)
[2020-05-30] MEDS: Pantoprazole 40 MG VIAL IVP SCH (10:01)
[2020-05-30] MEDS: Aspirin 325 MG TABLET PO SCH (10:01)
[2020-05-30] MEDS: Cyanocobalamin (B-12) 1,000 MCG/ML VIAL IM SCH (10:02)
[2020-05-30] MEDS: Azithromycin 250 MG TABLET PO SCH (10:38)
[2020-05-30] MEDS ORDERED: Iron Sucrose Complex 200 MG in 0.9 % Sodium Chloride 100 ML IVPB ONE ×2 (17:25→20:30)
[2020-05-30] MEDS: Ceftaroline Fosamil Acetate 600 MG in 0.9 % Sodium Chloride 50 ML IVPB SCH (20:27)
[2020-05-30] MEDS: Insulin DETEMIR 100 UNIT/ML X5UNITS SQ SCH (22:40)
[2020-05-31 02:07] LABS: Hematocrit 25.4 % (35.3-44.9); Hemoglobin 7.5 g/dL (11.5-15.4); Mean Corpuscular HGB Conc 29.5 g/dL (31.6-35.5); Mean Corpuscular Hemoglobin 24.3 pg (28.0-33.3); Mean Corpuscular Volume 82.2 fL (83.0-100.0); Mean Platelet Volume 12.2 fL (9.4-12.4); Platelet Count 161 K/mcL (140-400); Red Blood Count 3.09 M/mcL (3.82-4.97); Red Cell Distribution Width 17.1 % (11.5-14.5); White Blood Count 5.2 K/mcL (4.3-11.1)
[2020-05-31 02:23] LABS: BUN/Creatinine Ratio 23 (6-26); Blood Urea Nitrogen 25 mg/dL (6-20); Calcium 8.2 mg/dL (8.6-10.3); Carbon Dioxide 20 mEq/L (23-29); Chloride 106 mEq/L (98-107); Glucose 120 mg/dL (70-105); Osmolality,Calculated 286 (280-300); Potassium 4.5 mEq/L (3.5-5.1); Sodium 135 mEq/L (136-145); eGFR For African Americans > 60 (> 60); eGFR For Non-African Americans 54 (> 60)
[2020-05-31] MEDS: Ipratropium/Albuterol Neb 3 ML IH SCH (03:41)
[2020-05-31] MEDS: *HR* Heparin 5,000 UNIT/ML VIAL SQ SCH ×2 (05:14→17:08)
[2020-05-31] MEDS: Piperacillin/Tazobactam 3.375 GM in 0.9 % Sodium Chloride Mini Bag 100 ML IVPB SCH (05:15)
[2020-05-31] MEDS ORDERED: DAPTOmycin 650 MG in 0.9 % Sodium Chloride 100 ML IVPB SCH (06:00)
[2020-05-31] MEDS: Pregabalin 75 MG CAPSULE PO SCH ×2 (08:19→22:02)
[2020-05-31] MEDS: Insulin LISPRO 300 UNITS/3 ML VIAL SQ SCH ×4 (08:32→21:56)
[2020-05-31] MEDS ORDERED: Ipratropium/Albuterol Neb 3 ML IH PRN (09:47)
[2020-05-31] MEDS: Ceftaroline Fosamil Acetate 600 MG in 0.9 % Sodium Chloride 50 ML IVPB SCH ×2 (13:41→22:03)
[2020-05-31] MEDS: Cyanocobalamin (B-12) 1,000 MCG/ML VIAL IM SCH (13:52)
[2020-05-31] MEDS: Pantoprazole 40 MG VIAL IVP SCH (13:53)
[2020-05-31] MEDS: Acetaminophen 325 MG TABLET PO PRN (17:07)
[2020-05-31] MEDS: Insulin DETEMIR 100 UNIT/ML X5UNITS SQ SCH (22:03)
[2020-06-01 03:34] LABS: Basophils % 0.4 %; Eosinophils # 0.2 K/mcL (0.0-0.6); Eosinophils % 3.7 %; Hematocrit 25.2 % (35.3-44.9); Hemoglobin 7.5 g/dL (11.5-15.4); Immature Granulocytes % 0.4 % (0-4); Lymphocytes # 0.8 K/mcL (0.6-4.6); Lymphocytes % 15.3 %; Mean Corpuscular HGB Conc 29.8 g/dL (31.6-35.5); Mean Corpuscular Volume 80.5 fL (83.0-100.0); Mean Platelet Volume 11.6 fL (9.4-12.4); Monocytes # 0.5 K/mcL (0.0-1.3); Monocytes % 10.1 %; Neutrophils # 3.8 K/mcL (1.6-8.9); Platelet Count 178 K/mcL (140-400); Red Blood Count 3.13 M/mcL (3.82-4.97); Red Cell Distribution Width 17.2 % (11.5-14.5); Segmented Neutrophils % 70.1 %; White Blood Count 5.4 K/mcL (4.3-11.1)
[2020-06-01 03:52] LABS: BUN/Creatinine Ratio 20 (6-26); Blood Urea Nitrogen 20 mg/dL (6-20); Calcium 8.2 mg/dL (8.6-10.3); Carbon Dioxide 25 mEq/L (23-29); Chloride 106 mEq/L (98-107); Glucose 104 mg/dL (70-105); Osmolality,Calculated 285 (280-300); Potassium 4.2 mEq/L (3.5-5.1); Sodium 136 mEq/L (136-145); eGFR For African Americans > 60 (> 60); eGFR For Non-African Americans 60 (> 60)
[2020-06-01] MEDS: *HR* Heparin 5,000 UNIT/ML VIAL SQ SCH ×2 (05:32→16:50)
[2020-06-01] MEDS ORDERED: Lidocaine Viscous Oral Soln 15 ML SOLUTION MM PRN (08:17)
[2020-06-01] MEDS ORDERED: 0.9 % Sodium Chloride 500 ML IVC ONE (08:17)
[2020-06-01] MEDS: *HR* FentaNYL (PF) 100 MCG/2 ML VIAL IVP PRN ×3 (08:50→09:00)
[2020-06-01] MEDS: *HR* Midazolam HCl 5 MG/5 ML VIAL IVP PRN ×3 (08:50→09:00)
[2020-06-01] MEDS: Insulin LISPRO 300 UNITS/3 ML VIAL SQ SCH ×4 (10:20→21:02)
[2020-06-01] MEDS: Cyanocobalamin (B-12) 1,000 MCG TABLET PO SCH (10:20)
[2020-06-01] MEDS: Pregabalin 75 MG CAPSULE PO SCH ×2 (10:20→21:13)
[2020-06-01] MEDS: Pantoprazole 40 MG VIAL IVP SCH (10:20)
[2020-06-01] MEDS: Ceftaroline Fosamil Acetate 600 MG in 0.9 % Sodium Chloride 50 ML IVPB SCH ×2 (10:48→21:14)
[2020-06-01] MEDS: Nystatin SUSP 5 ML UD.LIQ PO SCH ×2 (16:51→21:13)
[2020-06-01] MEDS: Sennosides/Docusate Sodium TABLET PO SCH (21:14)
[2020-06-01] MEDS: Insulin DETEMIR 100 UNIT/ML X5UNITS SQ SCH (21:14)
[2020-06-02 03:54] LABS: Basophils % 0.3 %; Eosinophils # 0.3 K/mcL (0.0-0.6); Eosinophils % 3.7 %; Hemoglobin 7.9 g/dL (11.5-15.4); Immature Granulocytes % 0.3 % (0-4); Lymphocytes # 1.2 K/mcL (0.6-4.6); Lymphocytes % 18.1 %; Mean Corpuscular HGB Conc 30.4 g/dL (31.6-35.5); Mean Corpuscular Hemoglobin 24.8 pg (28.0-33.3); Mean Corpuscular Volume 81.5 fL (83.0-100.0); Mean Platelet Volume 11.9 fL (9.4-12.4); Monocytes # 0.5 K/mcL (0.0-1.3); Monocytes % 7.8 %; Neutrophils # 4.7 K/mcL (1.6-8.9); Platelet Count 220 K/mcL (140-400); Red Blood Count 3.19 M/mcL (3.82-4.97); Red Cell Distribution Width 17.2 % (11.5-14.5); Segmented Neutrophils % 69.8 %; White Blood Count 6.8 K/mcL (4.3-11.1)
[2020-06-02 03:58] LABS: BUN/Creatinine Ratio 15 (6-26); Blood Urea Nitrogen 13 mg/dL (6-20); Calcium 8.3 mg/dL (8.6-10.3); Carbon Dioxide 26 mEq/L (23-29); Chloride 104 mEq/L (98-107); Glucose 85 mg/dL (70-105); Osmolality,Calculated 285 (280-300); Potassium 4.2 mEq/L (3.5-5.1); Sodium 138 mEq/L (136-145); eGFR For African Americans > 60 (> 60); eGFR For Non-African Americans > 60 (> 60)
[2020-06-02] MEDS: *HR* Promethazine 25 MG/ML VIAL IVP PRN (04:09)
[2020-06-02] MEDS: *HR* Heparin 5,000 UNIT/ML VIAL SQ SCH ×2 (05:24→17:12)
[2020-06-02] MEDS: Sacubitril/Valsartan 97/103 MG 1 TAB TABLET PO SCH ×2 (09:18→22:06)
[2020-06-02] MEDS: Cyanocobalamin (B-12) 1,000 MCG TABLET PO SCH (09:18)
[2020-06-02] MEDS: Pregabalin 75 MG CAPSULE PO SCH ×2 (09:18→22:06)
[2020-06-02] MEDS: Sennosides/Docusate Sodium TABLET PO SCH ×2 (09:18→22:06)
[2020-06-02] MEDS: Insulin LISPRO 300 UNITS/3 ML VIAL SQ SCH ×4 (09:18→22:07)
[2020-06-02] MEDS: Nystatin SUSP 5 ML UD.LIQ PO SCH ×4 (09:18→22:29)
[2020-06-02] MEDS: Ceftaroline Fosamil Acetate 600 MG in 0.9 % Sodium Chloride 50 ML IVPB SCH ×2 (09:27→22:29)
[2020-06-02] MEDS: amLODIPine 5 MG TABLET PO SCH (13:22)
[2020-06-02] MEDS: Insulin DETEMIR 100 UNIT/ML X5UNITS SQ SCH (22:07)
[2020-06-02] MEDS: Lactobacillus 1 EACH CAP.SPRINK PO SCH (22:07)
[2020-06-03] MEDS: *HR* Promethazine 25 MG/ML VIAL IVP PRN ×2 (00:04→09:30)
[2020-06-03 04:01] LABS: Basophils % 0.3 %; Eosinophils # 0.2 K/mcL (0.0-0.6); Eosinophils % 2.5 %; Hematocrit 26.4 % (35.3-44.9); Immature Granulocytes % 0.5 % (0-4); Lymphocytes # 1.2 K/mcL (0.6-4.6); Lymphocytes % 19.8 %; Mean Corpuscular HGB Conc 30.3 g/dL (31.6-35.5); Mean Corpuscular Hemoglobin 24.5 pg (28.0-33.3); Mean Corpuscular Volume 80.7 fL (83.0-100.0); Mean Platelet Volume 11.3 fL (9.4-12.4); Monocytes # 0.5 K/mcL (0.0-1.3); Monocytes % 8.3 %; Platelet Count 234 K/mcL (140-400); Red Blood Count 3.27 M/mcL (3.82-4.97); Red Cell Distribution Width 17.5 % (11.5-14.5); Segmented Neutrophils % 68.6 %; White Blood Count 5.9 K/mcL (4.3-11.1)
[2020-06-03 04:38] LABS: BUN/Creatinine Ratio 13 (6-26); Blood Urea Nitrogen 10 mg/dL (6-20); Calcium 8.4 mg/dL (8.6-10.3); Carbon Dioxide 28 mEq/L (23-29); Chloride 104 mEq/L (98-107); Glucose 97 mg/dL (70-105); Osmolality,Calculated 289 (280-300); Potassium 3.7 mEq/L (3.5-5.1); Sodium 140 mEq/L (136-145); eGFR For African Americans > 60 (> 60); eGFR For Non-African Americans > 60 (> 60)
[2020-06-03] MEDS: *HR* Heparin 5,000 UNIT/ML VIAL SQ SCH ×2 (05:47→17:37)
[2020-06-03] MEDS: Insulin LISPRO 300 UNITS/3 ML VIAL SQ SCH ×4 (08:16→21:01)
[2020-06-03] MEDS: Sacubitril/Valsartan 97/103 MG 1 TAB TABLET PO SCH ×2 (09:22→21:00)
[2020-06-03] MEDS: amLODIPine 5 MG TABLET PO SCH (09:22)
[2020-06-03] MEDS: Cyanocobalamin (B-12) 1,000 MCG TABLET PO SCH (09:22)
[2020-06-03] MEDS: Sennosides/Docusate Sodium TABLET PO SCH ×2 (09:22→21:02)
[2020-06-03] MEDS: Pregabalin 75 MG CAPSULE PO SCH ×2 (09:22→21:00)
[2020-06-03] MEDS: Nystatin SUSP 5 ML UD.LIQ PO SCH ×4 (09:22→21:00)
[2020-06-03] MEDS: Lactobacillus 1 EACH CAP.SPRINK PO SCH ×2 (09:22→20:59)
[2020-06-03] MEDS: Ceftaroline Fosamil Acetate 600 MG in 0.9 % Sodium Chloride 50 ML IVPB SCH ×2 (09:41→20:59)
[2020-06-03] MEDS ORDERED: Milk and Molasses Enema 200 ML RC ONE (13:05)
[2020-06-03] MEDS ORDERED: amLODIPine 5 MG TABLET PO ONE (14:07)
[2020-06-03] MEDS: Insulin DETEMIR 100 UNIT/ML X5UNITS SQ SCH (21:00)
[2020-06-04 05:42] LABS: BUN/Creatinine Ratio 14 (6-26); Blood Urea Nitrogen 13 mg/dL (6-20); Carbon Dioxide 31 mEq/L (23-29); Chloride 102 mEq/L (98-107); Glucose 123 mg/dL (70-105); Osmolality,Calculated 289 (280-300); Potassium 4.1 mEq/L (3.5-5.1); Sodium 139 mEq/L (136-145); eGFR For African Americans > 60 (> 60); eGFR For Non-African Americans > 60 (> 60)
[2020-06-04] MEDS: *HR* Heparin 5,000 UNIT/ML VIAL SQ SCH ×2 (06:37→16:55)
[2020-06-04] MEDS: Sennosides/Docusate Sodium TABLET PO SCH ×2 (09:44→20:48)
[2020-06-04] MEDS: Cyanocobalamin (B-12) 1,000 MCG TABLET PO SCH (09:44)
[2020-06-04] MEDS: Pregabalin 75 MG CAPSULE PO SCH ×2 (09:44→20:48)
[2020-06-04] MEDS: amLODIPine 5 MG TABLET PO SCH (09:44)
[2020-06-04] MEDS: Nystatin SUSP 5 ML UD.LIQ PO SCH ×4 (09:44→20:49)
[2020-06-04] MEDS: Sacubitril/Valsartan 97/103 MG 1 TAB TABLET PO SCH ×2 (09:44→20:48)
[2020-06-04] MEDS: Lactobacillus 1 EACH CAP.SPRINK PO SCH ×2 (09:44→20:48)
[2020-06-04] MEDS: Insulin LISPRO 300 UNITS/3 ML VIAL SQ SCH ×4 (09:45→20:49)
[2020-06-04] MEDS: Ceftaroline Fosamil Acetate 600 MG in 0.9 % Sodium Chloride 50 ML IVPB SCH ×2 (09:51→20:49)
[2020-06-04] MEDS: *HR* Promethazine 25 MG/ML VIAL IVP PRN (12:46)
[2020-06-04] MEDS: Insulin DETEMIR 100 UNIT/ML X5UNITS SQ SCH (20:49)
[2020-06-05] MEDS: *HR* Promethazine 25 MG/ML VIAL IVP PRN ×3 (03:23→16:02)
[2020-06-05] MEDS: *HR* Heparin 5,000 UNIT/ML VIAL SQ SCH ×2 (05:18→16:01)
[2020-06-05] MEDS: Insulin LISPRO 300 UNITS/3 ML VIAL SQ SCH ×4 (09:15→20:54)
[2020-06-05] MEDS: amLODIPine 5 MG TABLET PO SCH (09:27)
[2020-06-05] MEDS: Pregabalin 75 MG CAPSULE PO SCH ×2 (09:28→21:00)
[2020-06-05] MEDS: Lactobacillus 1 EACH CAP.SPRINK PO SCH ×2 (09:28→21:00)
[2020-06-05] MEDS: Nystatin SUSP 5 ML UD.LIQ PO SCH ×4 (09:28→21:00)
[2020-06-05] MEDS: Sennosides/Docusate Sodium TABLET PO SCH ×2 (09:28→21:00)
[2020-06-05] MEDS: Sacubitril/Valsartan 97/103 MG 1 TAB TABLET PO SCH ×2 (09:28→21:00)
[2020-06-05] MEDS: Cyanocobalamin (B-12) 1,000 MCG TABLET PO SCH (09:29)
[2020-06-05] MEDS: Ceftaroline Fosamil Acetate 600 MG in 0.9 % Sodium Chloride 50 ML IVPB SCH ×2 (09:44→21:03)
[2020-06-05] MEDS: Ondansetron 4 MG/2 ML VIAL IVP PRN (21:04)
[2020-06-05] MEDS: Insulin DETEMIR 100 UNIT/ML X5UNITS SQ SCH (21:46)
[2020-06-06] MEDS: *HR* Heparin 5,000 UNIT/ML VIAL SQ SCH ×2 (06:00→17:09)
[2020-06-06] MEDS: Insulin LISPRO 300 UNITS/3 ML VIAL SQ SCH ×4 (08:24→21:41)
[2020-06-06] MEDS: Sennosides/Docusate Sodium TABLET PO SCH ×2 (09:50→21:40)
[2020-06-06] MEDS: Nystatin SUSP 5 ML UD.LIQ PO SCH ×4 (09:51→21:40)
[2020-06-06] MEDS: Pregabalin 75 MG CAPSULE PO SCH ×2 (09:51→21:40)
[2020-06-06] MEDS: Cyanocobalamin (B-12) 1,000 MCG TABLET PO SCH (09:51)
[2020-06-06] MEDS: Sacubitril/Valsartan 97/103 MG 1 TAB TABLET PO SCH ×2 (09:51→21:40)
[2020-06-06] MEDS: Lactobacillus 1 EACH CAP.SPRINK PO SCH ×2 (09:51→21:40)
[2020-06-06] MEDS: amLODIPine 5 MG TABLET PO SCH (09:52)
[2020-06-06] MEDS: Ceftaroline Fosamil Acetate 600 MG in 0.9 % Sodium Chloride 50 ML IVPB SCH ×2 (09:55→21:45)
[2020-06-06] MEDS: Ondansetron 4 MG/2 ML VIAL IVP PRN (10:01)
[2020-06-06 12:58] LABS: Basophils % 0.6 %; Eosinophils # 0.2 K/mcL (0.0-0.6); Eosinophils % 3.3 %; Hematocrit 29.7 % (35.3-44.9); Immature Granulocytes % 0.4 % (0-4); Lymphocytes % 20.2 %; Mean Corpuscular HGB Conc 30.3 g/dL (31.6-35.5); Mean Corpuscular Hemoglobin 24.7 pg (28.0-33.3); Mean Corpuscular Volume 81.4 fL (83.0-100.0); Mean Platelet Volume 10.9 fL (9.4-12.4); Monocytes # 0.4 K/mcL (0.0-1.3); Monocytes % 8.4 %; Neutrophils # 3.4 K/mcL (1.6-8.9); Platelet Count 259 K/mcL (140-400); Red Blood Count 3.65 M/mcL (3.82-4.97); Segmented Neutrophils % 67.1 %; White Blood Count 5.1 K/mcL (4.3-11.1)
[2020-06-06 13:21] LABS: BUN/Creatinine Ratio 13 (6-26); Blood Urea Nitrogen 14 mg/dL (6-20); Calcium 8.6 mg/dL (8.6-10.3); Carbon Dioxide 28 mEq/L (23-29); Chloride 101 mEq/L (98-107); Glucose 133 mg/dL (70-105); Osmolality,Calculated 286 (280-300); Sodium 137 mEq/L (136-145); eGFR For African Americans > 60 (> 60); eGFR For Non-African Americans 55 (> 60)
[2020-06-06] MEDS: Insulin DETEMIR 100 UNIT/ML X5UNITS SQ SCH (21:40)
[2020-06-06] MEDS: Acetaminophen 325 MG TABLET PO PRN (23:01)
[2020-06-07] MEDS: *HR* Heparin 5,000 UNIT/ML VIAL SQ SCH ×2 (05:47→16:57)
[2020-06-07] MEDS: Insulin LISPRO 300 UNITS/3 ML VIAL SQ SCH ×4 (10:12→20:18)
[2020-06-07] MEDS: Nystatin SUSP 5 ML UD.LIQ PO SCH ×4 (10:13→20:18)
[2020-06-07] MEDS: Sacubitril/Valsartan 97/103 MG 1 TAB TABLET PO SCH ×2 (10:13→20:18)
[2020-06-07] MEDS: Pregabalin 75 MG CAPSULE PO SCH ×2 (10:13→20:17)
[2020-06-07] MEDS: Sennosides/Docusate Sodium TABLET PO SCH ×2 (10:13→20:18)
[2020-06-07] MEDS: amLODIPine 5 MG TABLET PO SCH (10:13)
[2020-06-07] MEDS: Lactobacillus 1 EACH CAP.SPRINK PO SCH ×2 (10:13→20:18)
[2020-06-07] MEDS: Cyanocobalamin (B-12) 1,000 MCG TABLET PO SCH (10:13)
[2020-06-07] MEDS: Ceftaroline Fosamil Acetate 600 MG in 0.9 % Sodium Chloride 50 ML IVPB SCH ×2 (10:18→20:21)
[2020-06-07] MEDS: Insulin DETEMIR 100 UNIT/ML X5UNITS SQ SCH (20:18)
[2020-06-08] MEDS: *HR* Heparin 5,000 UNIT/ML VIAL SQ SCH ×2 (05:55→17:08)
[2020-06-08] MEDS: amLODIPine 5 MG TABLET PO SCH (08:33)
[2020-06-08] MEDS: Sennosides/Docusate Sodium TABLET PO SCH ×2 (08:33→20:40)
[2020-06-08] MEDS: Pregabalin 75 MG CAPSULE PO SCH ×2 (08:34→20:40)
[2020-06-08] MEDS: Lactobacillus 1 EACH CAP.SPRINK PO SCH ×2 (08:34→20:39)
[2020-06-08] MEDS: Ceftaroline Fosamil Acetate 600 MG in 0.9 % Sodium Chloride 50 ML IVPB SCH ×2 (08:34→20:41)
[2020-06-08] MEDS: Sacubitril/Valsartan 97/103 MG 1 TAB TABLET PO SCH ×2 (08:34→20:40)
[2020-06-08] MEDS: Cyanocobalamin (B-12) 1,000 MCG TABLET PO SCH (08:34)
[2020-06-08] MEDS: Nystatin SUSP 5 ML UD.LIQ PO SCH ×2 (08:36→11:51)
[2020-06-08] MEDS: Insulin LISPRO 300 UNITS/3 ML VIAL SQ SCH ×3 (08:39→17:41)
[2020-06-08] MEDS: Ondansetron 4 MG/2 ML VIAL IVP PRN (11:00)
[2020-06-08] MEDS: Insulin DETEMIR 100 UNIT/ML X5UNITS SQ SCH (20:41)
[2020-06-09 02:02] LABS: Calcium 8.6 mg/dL (8.6-10.3); Potassium 3.9 mEq/L (3.5-5.1)
[2020-06-09] MEDS: *HR* Heparin 5,000 UNIT/ML VIAL SQ SCH ×2 (05:49→16:55)
[2020-06-09] MEDS: Insulin LISPRO 300 UNITS/3 ML VIAL SQ SCH ×5 (05:49→20:27)
[2020-06-09] MEDS: Lactobacillus 1 EACH CAP.SPRINK PO SCH ×2 (09:09→20:25)
[2020-06-09] MEDS: Sacubitril/Valsartan 97/103 MG 1 TAB TABLET PO SCH ×2 (09:09→20:25)
[2020-06-09] MEDS: Sennosides/Docusate Sodium TABLET PO SCH ×2 (09:09→20:25)
[2020-06-09] MEDS: Ceftaroline Fosamil Acetate 600 MG in 0.9 % Sodium Chloride 50 ML IVPB SCH ×2 (09:10→20:27)
[2020-06-09] MEDS: Pregabalin 75 MG CAPSULE PO SCH ×2 (09:14→20:25)
[2020-06-09] MEDS: amLODIPine 5 MG TABLET PO SCH (09:14)
[2020-06-09] MEDS: Cyanocobalamin (B-12) 1,000 MCG TABLET PO SCH (09:15)
[2020-06-09] MEDS: Insulin DETEMIR 100 UNIT/ML X5UNITS SQ SCH (20:27)
[2020-06-10] MEDS: *HR* Heparin 5,000 UNIT/ML VIAL SQ SCH ×2 (05:26→17:31)
[2020-06-10] MEDS: Insulin LISPRO 300 UNITS/3 ML VIAL SQ SCH ×5 (09:04→20:32)
[2020-06-10] MEDS: Pregabalin 75 MG CAPSULE PO SCH ×2 (09:34→20:31)
[2020-06-10] MEDS: Sacubitril/Valsartan 97/103 MG 1 TAB TABLET PO SCH ×2 (09:34→20:31)
[2020-06-10] MEDS: Sennosides/Docusate Sodium TABLET PO SCH ×2 (09:34→20:31)
[2020-06-10] MEDS: amLODIPine 5 MG TABLET PO SCH (09:34)
[2020-06-10] MEDS: Cyanocobalamin (B-12) 1,000 MCG TABLET PO SCH (09:34)
[2020-06-10] MEDS: Lactobacillus 1 EACH CAP.SPRINK PO SCH ×2 (09:35→20:32)
[2020-06-10] MEDS: Ceftaroline Fosamil Acetate 600 MG in 0.9 % Sodium Chloride 50 ML IVPB SCH ×2 (09:36→20:32)
[2020-06-10] MEDS: Insulin DETEMIR 100 UNIT/ML X5UNITS SQ SCH (20:30)
[2020-06-11] MEDS: *HR* Heparin 5,000 UNIT/ML VIAL SQ SCH (05:15)
[2020-06-11 07:52] VITALS: BP 151/79
[2020-06-11] MEDS: Insulin LISPRO 300 UNITS/3 ML VIAL SQ SCH (07:52)
[2020-06-11] MEDS: Ceftaroline Fosamil Acetate 600 MG in 0.9 % Sodium Chloride 50 ML IVPB SCH (09:28)
[2020-06-11] MEDS: Cyanocobalamin (B-12) 1,000 MCG TABLET PO SCH (09:34)
[2020-06-11] MEDS: Sacubitril/Valsartan 97/103 MG 1 TAB TABLET PO SCH (09:34)
[2020-06-11] MEDS: Sennosides/Docusate Sodium TABLET PO SCH (09:34)
[2020-06-11] MEDS: Pregabalin 75 MG CAPSULE PO SCH (09:34)
[2020-06-11] MEDS: amLODIPine 5 MG TABLET PO SCH (09:35)
[2020-06-11] MEDS: Lactobacillus 1 EACH CAP.SPRINK PO SCH (09:35)
== END 2020-06-11 11:16 | disposition home or self-care (01) | DRG 720 ==
LOC: 3NENU 18:07 → EMEROOARM 18:07 → 3NENU 22:56 → SUATTDRO 05-28 10:02 → 3ANU 06-06 11:58
PROVIDERS: ADMIT Internal Medicine; ATTEND Student in an Organized Health Care Education/Training Program

== ENCOUNTER 2020-06-17 00:24 | Observation (INO) ==
[2020-06-17 03:54] LABS: Bacteria,Urine Few per hpf (None-Few); Bilirubin,Urine Negative (Negative); Blood,Urine Moderate (Negative); Clarity,Urine Clear (Clear); Color,Urine Light-Yellow (Yellow); Glucose,Urine (UA) 150 mg/dL (Normal); Ketones,Urine Negative (Negative); Leukocyte Esterase,Urine Negative (Negative); Mucus,Urine Few per lpf (None-Few); Nitrite,Urine Negative (Negative); Protein,Urine >=300 mg/dL (Neg-Trace); Squamous Epithelial Cell,Urine Few per hpf (None-Few); Urobilinogen,Urine Normal (Normal); WBC,Urine 0-3 per hpf (0-3)
[2020-06-17 04:43] LABS: Basophils % 0.7 %; Hematocrit 29.8 % (35.3-44.9)
[2020-06-17 04:45] LABS: Eosinophils # 0.1 K/mcL (0.0-0.6); Eosinophils % 1.9 %; Hemoglobin 9.1 g/dL (11.5-15.4); Immature Granulocytes % 0.3 % (0-4); Immature Platelets 11.9 % (1.1-6.1); Lymphocytes % 17.7 %; Mean Corpuscular HGB Conc 30.5 g/dL (31.6-35.5); Mean Corpuscular Hemoglobin 24.1 pg (28.0-33.3); Mean Platelet Volume 12.9 fL (9.4-12.4); Monocytes # 0.3 K/mcL (0.0-1.3); Monocytes % 5.2 %; Neutrophils # 4.3 K/mcL (1.6-8.9); Nucleated Red Blood Cells 0.3 /100 WBC (0); Platelet Count 179 K/mcL (140-400); Red Blood Count 3.77 M/mcL (3.82-4.97); Red Cell Distribution Width 18.1 % (11.5-14.5); Segmented Neutrophils % 74.2 %; White Blood Count 5.8 K/mcL (4.3-11.1)
[2020-06-17 05:01] LABS: Anisocytosis 1+ (Not Present); Microcytosis Present (Not Present); Platelet Estimate Normal (Normal)
[2020-06-17 05:04] LABS: Alanine Aminotransferase 12 Units/L (7-52); Albumin 3.1 g/dL (3.5-5.7); Albumin/Globulin Ratio 0.7 (1.1-2.2); Alkaline Phosphatase 139 Units/L (34-104); Aspartate Amino Transferase 10 Units/L (13-39); BUN/Creatinine Ratio 23 (6-26); Bilirubin,Direct 0.1 mg/dL (0.0-0.2); Bilirubin,Indirect 0.4 mg/dL (0.0-1.0); Bilirubin,Total 0.5 mg/dL (0.3-1.0); Blood Urea Nitrogen 21 mg/dL (6-20); Calcium 9.3 mg/dL (8.6-10.3); Carbon Dioxide 23 mEq/L (23-29); Chloride 100 mEq/L (98-107); Globulin 4.4 g/dL (2.4-3.5); Glucose 284 mg/dL (70-105); Lipase 62 Units/L (11-82); Osmolality,Calculated 291 (280-300); Potassium 3.9 mEq/L (3.5-5.1); Sodium 134 mEq/L (136-145); Total Protein 7.5 g/dL (6.4-8.9); Troponin I < 0.03 ng/mL (< 0.04); eGFR For African Americans > 60 (> 60); eGFR For Non-African Americans > 60 (> 60)
[2020-06-17] MEDS ORDERED: Isovue-370 500 ML BOTTLE IVP ONE (05:07)
[2020-06-17] MEDS ORDERED: *HR* LORazepam 2 MG/ML VIAL IVP ONE (06:40)
[2020-06-17] MEDS ORDERED: *HR* Heparin 5,000 UNIT/ML VIAL IVP PRN (07:21)
[2020-06-17] MEDS ORDERED: *HR* Heparin 5,000 UNIT/ML VIAL IVP ONE (07:21)
[2020-06-17 08:33] LABS: Adenovirus Not Detected (Not Detect); Bordetella Pertussis Not Detected (Not Detect); Chlamydophila pneumoniae Not Detected (Not Detect); Coronavirus 229E Not Detected (Not Detect); Coronavirus HKU1 Not Detected (Not Detect); Coronavirus NL63 Not Detected (Not Detect); Coronavirus OC43 Not Detected (Not Detect); Human Metapneumovirus Not Detected (Not Detect); Human Rhinovirus/Enterovirus Not Detected (Not Detect); Influenza A Subtype 2009 H1 Not Detected (Not Detect); Influenza B Not Detected (Not Detect); Mycoplasma pneumoniae Not Detected (Not Detect); Parainfluenza Virus 1 Not Detected (Not Detect); Parainfluenza Virus 2 Not Detected (Not Detect); Parainfluenza Virus 3 Not Detected (Not Detect); Parainfluenza Virus 4 Not Detected (Not Detect); Respiratory Syncytial Virus Not Detected (Not Detect); SARS-CoV-2 Not Detected (Not Detect)
[2020-06-17] MEDS: Heparin 25,000 UNIT/250 ML D5W 25,000 UNIT/250 ML IV.SOLN IVC SCH ×2 (08:50→22:57)
[2020-06-17 10:19] LABS: Red Cell Distribution Width 18.2 % (11.5-14.5)
[2020-06-17 10:21] LABS: Hematocrit 30.2 % (35.3-44.9); Hemoglobin 9.3 g/dL (11.5-15.4); Immature Platelets 10.1 % (1.1-6.1); Mean Corpuscular HGB Conc 30.8 g/dL (31.6-35.5); Mean Corpuscular Hemoglobin 24.9 pg (28.0-33.3); Mean Corpuscular Volume 80.7 fL (83.0-100.0); Mean Platelet Volume 12.7 fL (9.4-12.4); Red Blood Count 3.74 M/mcL (3.82-4.97); White Blood Count 6.6 K/mcL (4.3-11.1)
[2020-06-17 10:24] LABS: INR 1.3; Prothrombin Time 15.2 Seconds (9.4-12.1)
[2020-06-17 10:33] LABS: Heparin anti-factor XA UFH 1.21 IU/mL (0.30-0.70)
[2020-06-17] MEDS ORDERED: Ondansetron ODT 4 MG TAB.RAPDIS SL PRN (10:41)
[2020-06-17] MEDS ORDERED: Acetaminophen 325 MG TABLET PO PRN (10:41)
[2020-06-17] MEDS ORDERED: Naloxone 0.4 MG/ML INJ IVP PRN (10:41)
[2020-06-17] MEDS ORDERED: *HR* Dextrose 50 % in Water (Vial) 50 ML VIAL IVP PRN (10:49)
[2020-06-17] MEDS ORDERED: D5% in Water 1,000 ML IVC PRN (10:49)
[2020-06-17] MEDS ORDERED: Dextrose Gel 15 GM/37.5 ML TUBE PO PRN ×2 (10:49)
[2020-06-17] MEDS: Insulin LISPRO 300 UNITS/3 ML VIAL SQ SCH ×3 (12:03→20:44)
[2020-06-17] MEDS: *HR* Promethazine 25 MG/ML VIAL IVP PRN (17:31)
[2020-06-17] MEDS: *HR* OxyCODONE Immed Rel 5 MG TABLET PO PRN (17:31)
[2020-06-17] MEDS: *HR* Heparin 5,000 UNIT/ML VIAL IVP PRN (18:42)
[2020-06-17] MEDS: Pregabalin 75 MG CAPSULE PO SCH (20:44)
[2020-06-17] MEDS: Sacubitril/Valsartan 97/103 MG 1 TAB TABLET PO SCH (20:44)
[2020-06-18 05:22] LABS: Hematocrit 28.5 % (35.3-44.9)
[2020-06-18 05:24] LABS: Hemoglobin 8.5 g/dL (11.5-15.4); Mean Corpuscular HGB Conc 29.8 g/dL (31.6-35.5); Mean Corpuscular Volume 80.5 fL (83.0-100.0); Mean Platelet Volume 12.7 fL (9.4-12.4); Red Blood Count 3.54 M/mcL (3.82-4.97); Red Cell Distribution Width 18.2 % (11.5-14.5); White Blood Count 4.4 K/mcL (4.3-11.1)
[2020-06-18 05:26] LABS: INR 1.3; Prothrombin Time 14.3 Seconds (9.4-12.1)
[2020-06-18 05:41] LABS: BUN/Creatinine Ratio 15 (6-26); Blood Urea Nitrogen 15 mg/dL (6-20); Calcium 8.5 mg/dL (8.6-10.3); Carbon Dioxide 28 mEq/L (23-29); Chloride 102 mEq/L (98-107); Glucose 207 mg/dL (70-105); Osmolality,Calculated 293 (280-300); Potassium 3.3 mEq/L (3.5-5.1); Sodium 138 mEq/L (136-145); eGFR For African Americans > 60 (> 60); eGFR For Non-African Americans 58 (> 60)
[2020-06-18] MEDS: *HR* Promethazine 25 MG/ML VIAL IVP PRN (06:34)
[2020-06-18] MEDS: Pregabalin 75 MG CAPSULE PO SCH ×2 (08:58→21:33)
[2020-06-18] MEDS: Sacubitril/Valsartan 97/103 MG 1 TAB TABLET PO SCH ×2 (08:58→21:33)
[2020-06-18] MEDS: amLODIPine 5 MG TABLET PO SCH (08:58)
[2020-06-18] MEDS: Insulin LISPRO 300 UNITS/3 ML VIAL SQ SCH ×4 (08:59→21:35)
[2020-06-18] MEDS: Cyanocobalamin (B-12) 1,000 MCG TABLET PO SCH (08:59)
[2020-06-18] MEDS: *HR* OxyCODONE Immed Rel 5 MG TABLET PO PRN (09:02)
[2020-06-18] MEDS: Heparin 25,000 UNIT/250 ML D5W 25,000 UNIT/250 ML IV.SOLN IVC SCH (12:44)
[2020-06-18] MEDS: Nystatin POWDER 30 GM BOTTLE TP SCH (21:36)
[2020-06-19] MEDS: Heparin 25,000 UNIT/250 ML D5W 25,000 UNIT/250 ML IV.SOLN IVC SCH ×2 (04:03→17:46)
[2020-06-19 07:44] LABS: Hemoglobin 8.4 g/dL (11.5-15.4)
[2020-06-19] MEDS: Cyanocobalamin (B-12) 1,000 MCG TABLET PO SCH (07:54)
[2020-06-19] MEDS: Pregabalin 75 MG CAPSULE PO SCH ×2 (07:54→20:37)
[2020-06-19] MEDS: Sacubitril/Valsartan 97/103 MG 1 TAB TABLET PO SCH (07:54)
[2020-06-19] MEDS: amLODIPine 5 MG TABLET PO SCH (07:54)
[2020-06-19] MEDS: Insulin LISPRO 300 UNITS/3 ML VIAL SQ SCH ×3 (07:54→18:51)
[2020-06-19 08:04] LABS: Calcium 7.8 mg/dL (8.6-10.3); Magnesium 1.4 mg/dL (1.6-2.6); Potassium 3.9 mEq/L (3.5-5.1)
[2020-06-19] MEDS: Nystatin POWDER 30 GM BOTTLE TP SCH ×2 (08:04→20:37)
[2020-06-19] MEDS ORDERED: 0.9 % Sodium Chloride 1,000 ML IVC SCH (08:45)
[2020-06-19] MEDS ORDERED: Insulin DETEMIR 100 UNIT/ML X5UNITS SQ SCH (21:00)
[2020-06-19] MEDS: *HR* Heparin 5,000 UNIT/ML VIAL IVP PRN (23:45)
[2020-06-20 06:08] LABS: Hemoglobin 8.7 g/dL (11.5-15.4)
[2020-06-20 06:29] VITALS: BP 151/82
[2020-06-20 06:30] LABS: Calcium 8.1 mg/dL (8.6-10.3); Magnesium 1.7 mg/dL (1.6-2.6); Potassium 4.1 mEq/L (3.5-5.1)
[2020-06-20] MEDS: Insulin LISPRO 300 UNITS/3 ML VIAL SQ SCH (07:33)
[2020-06-20] MEDS: Heparin 25,000 UNIT/250 ML D5W 25,000 UNIT/250 ML IV.SOLN IVC SCH (07:34)
[2020-06-20] MEDS: Pregabalin 75 MG CAPSULE PO SCH (07:37)
[2020-06-20] MEDS: amLODIPine 5 MG TABLET PO SCH (07:37)
[2020-06-20] MEDS: Cyanocobalamin (B-12) 1,000 MCG TABLET PO SCH (07:38)
[2020-06-20] MEDS: *HR* Promethazine 25 MG/ML VIAL IVP PRN (07:47)
[2020-06-20] MEDS ORDERED: *HR* Rivaroxaban 15 MG TABLET PO ONE (09:15)
[2020-06-20] MEDS: Nystatin POWDER 30 GM BOTTLE TP SCH (10:39)
== END 2020-06-20 11:25 | disposition home or self-care (01) ==
LOC: EMEROOARM 00:24 → 3ANU 00:24 → SUATTDRO 08:39 → 3ANU 09:15
PROVIDERS: ADMIT Family Medicine; ATTEND Internal Medicine

== ENCOUNTER 2020-06-28 16:38 | Inpatient (IN) ==
[2020-06-28] MEDS ORDERED: Isovue-370 500 ML BOTTLE IVP ONE (16:58)
[2020-06-28 17:52] LABS: Basophils % 0.4 %; Eosinophils # 0.1 K/mcL (0.0-0.6); Hematocrit 25.7 % (35.3-44.9); Hemoglobin 7.8 g/dL (11.5-15.4); Immature Granulocytes % 0.4 % (0-4); Lymphocytes # 1.4 K/mcL (0.6-4.6); Mean Corpuscular HGB Conc 30.4 g/dL (31.6-35.5); Mean Corpuscular Hemoglobin 24.4 pg (28.0-33.3); Mean Corpuscular Volume 80.3 fL (83.0-100.0); Mean Platelet Volume 12.1 fL (9.4-12.4); Monocytes # 0.6 K/mcL (0.0-1.3); Monocytes % 8.3 %; Neutrophils # 5.1 K/mcL (1.6-8.9); Platelet Count 238 K/mcL (140-400); Segmented Neutrophils % 70.9 %; White Blood Count 7.3 K/mcL (4.3-11.1)
[2020-06-28 18:03] LABS: Potassium 4.3 mEq/L (3.5-5.1)
[2020-06-28] MEDS ORDERED: Piperacillin/Tazobactam 3.375 GM in 0.9 % Sodium Chloride Mini Bag 100 ML IVPB ONE (18:51)
[2020-06-28] MEDS ORDERED: Naloxone 0.4 MG/ML INJ IVP PRN (21:20)
[2020-06-28] MEDS ORDERED: *HR* OxyCODONE/APAP 5/325 TABLET PO PRN (21:23)
[2020-06-28] MEDS ORDERED: 0.9 % Sodium Chloride 1,000 ML IVC SCH (21:30)
[2020-06-29] MEDS ORDERED: Piperacillin/Tazobactam 3.375 GM in 0.9 % Sodium Chloride Mini Bag 100 ML IVPB SCH (02:00)
[2020-06-29] MEDS: Ondansetron 4 MG/2 ML VIAL IVP PRN ×2 (06:59→14:21)
[2020-06-29] MEDS: Pregabalin 75 MG CAPSULE PO SCH ×2 (09:33→19:52)
[2020-06-29] MEDS: Piperacillin/Tazobactam 3.375 GM in 0.9 % Sodium Chloride Mini Bag 100 ML IVPB SCH ×3 (09:34→23:19)
[2020-06-29 10:56] LABS: Basophils % 0.6 %; Eosinophils # 0.1 K/mcL (0.0-0.6); Hematocrit 25.7 % (35.3-44.9); Hemoglobin 7.7 g/dL (11.5-15.4); Immature Granulocytes % 0.3 % (0-4); Lymphocytes # 1.4 K/mcL (0.6-4.6); Lymphocytes % 20.4 %; Mean Corpuscular Hemoglobin 24.1 pg (28.0-33.3); Mean Corpuscular Volume 80.3 fL (83.0-100.0); Mean Platelet Volume 11.7 fL (9.4-12.4); Monocytes # 0.6 K/mcL (0.0-1.3); Monocytes % 7.9 %; Neutrophils # 4.9 K/mcL (1.6-8.9); Platelet Count 237 K/mcL (140-400); Red Cell Distribution Width 18.4 % (11.5-14.5); Segmented Neutrophils % 68.8 %; White Blood Count 7.1 K/mcL (4.3-11.1)
[2020-06-29 11:06] LABS: Albumin 2.6 g/dL (3.5-5.7); Albumin/Globulin Ratio 0.6 (1.1-2.2); Bilirubin,Total 0.4 mg/dL (0.3-1.0); Calcium 8.8 mg/dL (8.6-10.3); Globulin 4.6 g/dL (2.4-3.5); Potassium 4.3 mEq/L (3.5-5.1); Total Protein 7.2 g/dL (6.4-8.9)
[2020-06-29 11:08] LABS: % Iron Saturation 8 % (15-50); Iron 14 mcg/dL (50-170); Transferrin 132 mg/dL (203-362)
[2020-06-29 11:26] LABS: Ferritin 496 ng/mL (10-120)
[2020-06-29 12:06] LABS: Folate 12.3 ng/mL (3.0-16.0)
[2020-06-29 16:24] LABS: Estimated Average Glucose 169 mg/dl
[2020-06-29] MEDS ORDERED: Insulin DETEMIR 100 UNIT/ML X5UNITS SQ SCH (18:00)
[2020-06-29] MEDS: *HR* Enoxaparin 150 MG/ML SYRINGE SQ SCH (18:12)
[2020-06-29] MEDS: Sacubitril/Valsartan 97/103 MG 1 TAB TABLET PO SCH (19:52)
[2020-06-29] MEDS ORDERED: Acetaminophen 325 MG TABLET PO ONE (20:50)
[2020-06-30] MEDS: Ondansetron 4 MG/2 ML VIAL IVP PRN (02:53)
[2020-06-30] MEDS ORDERED: *HR* Promethazine 25 MG/ML VIAL IVP ONE (04:03)
[2020-06-30] MEDS: *HR* Enoxaparin 150 MG/ML SYRINGE SQ SCH ×2 (05:00→17:28)
[2020-06-30 06:28] LABS: Hematocrit 22.7 % (35.3-44.9); Hemoglobin 6.8 g/dL (11.5-15.4); Mean Corpuscular Hemoglobin 24.6 pg (28.0-33.3); Mean Corpuscular Volume 82.2 fL (83.0-100.0); Platelet Count 208 K/mcL (140-400); Red Blood Count 2.76 M/mcL (3.82-4.97); Red Cell Distribution Width 18.5 % (11.5-14.5); White Blood Count 5.6 K/mcL (4.3-11.1)
[2020-06-30 06:52] LABS: Calcium 8.4 mg/dL (8.6-10.3); Potassium 4.2 mEq/L (3.5-5.1)
[2020-06-30] MEDS: Piperacillin/Tazobactam 3.375 GM in 0.9 % Sodium Chloride Mini Bag 100 ML IVPB SCH ×2 (08:38→16:09)
[2020-06-30] MEDS: Pregabalin 75 MG CAPSULE PO SCH ×2 (08:39→20:28)
[2020-06-30] MEDS: Sacubitril/Valsartan 97/103 MG 1 TAB TABLET PO SCH (08:39)
[2020-06-30] MEDS ORDERED: 0.9 % Sodium Chloride 250 ML ONE (08:54)
[2020-06-30] MEDS ORDERED: amLODIPine 5 MG TABLET PO SCH (09:00)
[2020-06-30] MEDS ORDERED: *HR* FentaNYL (PF) 100 MCG/2 ML VIAL ONE (09:22)
[2020-06-30] MEDS ORDERED: Ondansetron 4 MG/2 ML VIAL ONE (09:22)
[2020-06-30] MEDS ORDERED: Lidocaine -MPF 4% 5 ML AMPUL ONE (09:22)
[2020-06-30] MEDS ORDERED: *HR* Midazolam HCl 2 MG/2 ML VIAL ONE (09:22)
[2020-06-30] MEDS ORDERED: Lidocaine -MPF 2% 2 ML VIAL ONE (09:22)
[2020-06-30] MEDS ORDERED: *HR* Propofol 200 MG/20 ML VIAL IVP ONE (09:22)
[2020-06-30] MEDS ORDERED: *HR* Succinylcholine 200 MG/10 ML VIAL IVP ONE (09:22)
[2020-06-30] MEDS ORDERED: Dexamethasone 4 MG/ML VIAL ONE (09:22)
[2020-06-30] MEDS: *HR* HYDROmorphone PF 0.5 MG/0.5 ML SYRINGE IVP PRN ×4 (13:30→14:00)
[2020-06-30] MEDS ORDERED: Ringers Solution, Lactated 1,000 ML ONE (13:47)
[2020-06-30] MEDS ORDERED: Acetaminophen 325 MG TABLET PO PRN ×2 (15:30)
[2020-06-30] MEDS ORDERED: Naloxone 0.4 MG/ML INJ IVP PRN (15:30)
[2020-06-30] MEDS ORDERED: *HR* HYDROcodone/Acet 5/325 mg TABLET PO PRN (15:30)
[2020-06-30] MEDS ORDERED: *HR* OxyCODONE Immed Rel 5 MG TABLET PO PRN (15:30)
[2020-06-30] MEDS ORDERED: Ondansetron 4 MG/2 ML VIAL IVP PRN (15:30)
[2020-06-30] MEDS: *HR* HYDROcodone/Acet 5/325 mg TABLET PO PRN (16:10)
[2020-06-30] MEDS: Insulin DETEMIR 100 UNIT/ML X5UNITS SQ SCH (19:22)
[2020-06-30] MEDS: *HR* OxyCODONE Immed Rel 5 MG TABLET PO PRN (20:28)
[2020-07-01] MEDS: Piperacillin/Tazobactam 3.375 GM in 0.9 % Sodium Chloride Mini Bag 100 ML IVPB SCH ×4 (00:34→23:27)
[2020-07-01 02:21] LABS: Basophils % 0.3 %; Hematocrit 28.4 % (35.3-44.9); Hemoglobin 8.7 g/dL (11.5-15.4); Immature Granulocytes % 0.5 % (0-4); Lymphocytes # 0.7 K/mcL (0.6-4.6); Lymphocytes % 9.9 %; Mean Corpuscular HGB Conc 30.6 g/dL (31.6-35.5); Mean Corpuscular Hemoglobin 25.4 pg (28.0-33.3); Mean Platelet Volume 11.5 fL (9.4-12.4); Monocytes # 0.2 K/mcL (0.0-1.3); Monocytes % 2.3 %; Neutrophils # 6.3 K/mcL (1.6-8.9); Platelet Count 278 K/mcL (140-400); Red Blood Count 3.42 M/mcL (3.82-4.97); Red Cell Distribution Width 17.8 % (11.5-14.5); White Blood Count 7.3 K/mcL (4.3-11.1)
[2020-07-01 02:25] LABS: VBG Ionized Calcium 1.09 mmol/L (1.15-1.35)
[2020-07-01 02:40] LABS: Calcium 8.2 mg/dL (8.6-10.3); Magnesium 1.7 mg/dL (1.6-2.6); Potassium 4.9 mEq/L (3.5-5.1)
[2020-07-01] MEDS: *HR* Enoxaparin 150 MG/ML SYRINGE SQ SCH ×2 (05:50→18:20)
[2020-07-01] MEDS: *HR* HYDROcodone/Acet 5/325 mg TABLET PO PRN ×2 (06:05→11:56)
[2020-07-01] MEDS ORDERED: *HR* Dextrose 50 % in Water (Vial) 50 ML VIAL IVP PRN (06:54)
[2020-07-01] MEDS ORDERED: D5% in Water 1,000 ML IVC PRN (06:54)
[2020-07-01] MEDS ORDERED: Dextrose Gel 15 GM/37.5 ML TUBE PO PRN ×2 (06:54)
[2020-07-01] MEDS: Pregabalin 75 MG CAPSULE PO SCH ×2 (08:44→20:34)
[2020-07-01] MEDS: *HR* OxyCODONE Immed Rel 5 MG TABLET PO PRN (08:46)
[2020-07-01] MEDS: Insulin LISPRO 300 UNITS/3 ML VIAL SQ SCH ×4 (10:14→20:41)
[2020-07-01] MEDS ORDERED: Acetaminophen 325 MG TABLET PO PRN ×2 (11:48)
[2020-07-01] MEDS ORDERED: *HR* HYDROcodone/Acet 5/325 mg TABLET PO PRN ×2 (11:48)
[2020-07-01] MEDS ORDERED: *HR* OxyCODONE Immed Rel 5 MG TABLET PO PRN ×2 (11:48)
[2020-07-01] MEDS: amLODIPine 5 MG TABLET PO SCH (13:17)
[2020-07-01] MEDS: Insulin DETEMIR 100 UNIT/ML X5UNITS SQ SCH (17:19)
[2020-07-01] MEDS ORDERED: *HR* HYDROmorphone 2 MG TABLET PO ONE (19:51)
[2020-07-01] MEDS ORDERED: Acetaminophen IV 1,000 MG/100 ML INFUS..BTL IVPB ONE (22:48)
[2020-07-02] MEDS ORDERED: *HR* HYDROmorphone 2 MG TABLET PO ONE ×2 (00:14→05:25)
[2020-07-02 01:12] LABS: Basophils % 0.3 %; Eosinophils % 0.4 %; Hematocrit 24.8 % (35.3-44.9); Hemoglobin 7.6 g/dL (11.5-15.4); Immature Granulocytes % 0.4 % (0-4); Lymphocytes # 1.7 K/mcL (0.6-4.6); Lymphocytes % 21.2 %; Mean Corpuscular HGB Conc 30.6 g/dL (31.6-35.5); Mean Corpuscular Hemoglobin 24.8 pg (28.0-33.3); Mean Corpuscular Volume 80.8 fL (83.0-100.0); Mean Platelet Volume 11.5 fL (9.4-12.4); Monocytes # 0.3 K/mcL (0.0-1.3); Monocytes % 4.1 %; Neutrophils # 5.8 K/mcL (1.6-8.9); Platelet Count 302 K/mcL (140-400); Red Blood Count 3.07 M/mcL (3.82-4.97); Red Cell Distribution Width 18.1 % (11.5-14.5); Segmented Neutrophils % 73.6 %; White Blood Count 7.9 K/mcL (4.3-11.1)
[2020-07-02 01:29] LABS: Calcium 8.1 mg/dL (8.6-10.3); Potassium 4.1 mEq/L (3.5-5.1)
[2020-07-02] MEDS: *HR* Enoxaparin 150 MG/ML SYRINGE SQ SCH ×2 (05:50→16:23)
[2020-07-02] MEDS: *HR* HYDROmorphone 4 MG TABLET PO PRN ×2 (09:47→13:47)
[2020-07-02] MEDS: Pregabalin 75 MG CAPSULE PO SCH ×2 (09:47→20:16)
[2020-07-02] MEDS: amLODIPine 5 MG TABLET PO SCH (09:47)
[2020-07-02] MEDS: Piperacillin/Tazobactam 3.375 GM in 0.9 % Sodium Chloride Mini Bag 100 ML IVPB SCH ×3 (09:48→23:40)
[2020-07-02] MEDS: Insulin LISPRO 300 UNITS/3 ML VIAL SQ SCH ×4 (09:48→20:16)
[2020-07-02] MEDS: *HR* OxyCODONE Immed Rel 5 MG TABLET PO PRN ×2 (16:20→21:29)
[2020-07-02] MEDS: Insulin DETEMIR 100 UNIT/ML X5UNITS SQ SCH (16:24)
[2020-07-02] MEDS: *HR* HYDROmorphone 2 MG TABLET PO PRN ×2 (18:33→23:39)
[2020-07-03] MEDS: *HR* OxyCODONE Immed Rel 5 MG TABLET PO PRN ×5 (01:50→20:14)
[2020-07-03] MEDS: *HR* HYDROmorphone 2 MG TABLET PO PRN ×6 (04:29→23:44)
[2020-07-03 05:17] LABS: Basophils % 0.4 %; Eosinophils # 0.1 K/mcL (0.0-0.6); Eosinophils % 1.6 %; Hematocrit 27.4 % (35.3-44.9); Immature Granulocytes % 0.7 % (0-4); Lymphocytes # 1.7 K/mcL (0.6-4.6); Mean Corpuscular HGB Conc 29.2 g/dL (31.6-35.5); Mean Corpuscular Hemoglobin 24.3 pg (28.0-33.3); Mean Corpuscular Volume 83.3 fL (83.0-100.0); Mean Platelet Volume 10.9 fL (9.4-12.4); Monocytes # 0.6 K/mcL (0.0-1.3); Monocytes % 8.1 %; Neutrophils # 4.6 K/mcL (1.6-8.9); Platelet Count 299 K/mcL (140-400); Red Blood Count 3.29 M/mcL (3.82-4.97); Red Cell Distribution Width 18.6 % (11.5-14.5); Segmented Neutrophils % 65.2 %
[2020-07-03 05:36] LABS: BUN/Creatinine Ratio 17 (6-26); Blood Urea Nitrogen 19 mg/dL (6-20); Calcium 8.3 mg/dL (8.6-10.3); Carbon Dioxide 26 mEq/L (23-29); Chloride 102 mEq/L (98-107); Glucose 138 mg/dL (70-105); Osmolality,Calculated 288 (280-300); Potassium 4.2 mEq/L (3.5-5.1); Sodium 137 mEq/L (136-145); eGFR For African Americans > 60 (> 60); eGFR For Non-African Americans 51 (> 60)
[2020-07-03] MEDS: *HR* Enoxaparin 150 MG/ML SYRINGE SQ SCH ×2 (06:35→16:15)
[2020-07-03] MEDS: Piperacillin/Tazobactam 3.375 GM in 0.9 % Sodium Chloride Mini Bag 100 ML IVPB SCH ×3 (09:19→23:44)
[2020-07-03] MEDS: amLODIPine 5 MG TABLET PO SCH (09:19)
[2020-07-03] MEDS: Pregabalin 75 MG CAPSULE PO SCH ×2 (09:19→20:14)
[2020-07-03] MEDS: Insulin LISPRO 300 UNITS/3 ML VIAL SQ SCH ×4 (09:20→20:15)
[2020-07-03] MEDS: Insulin DETEMIR 100 UNIT/ML X5UNITS SQ SCH (16:15)
[2020-07-04] MEDS: *HR* OxyCODONE Immed Rel 5 MG TABLET PO PRN ×3 (00:26→21:44)
[2020-07-04] MEDS: *HR* HYDROmorphone 2 MG TABLET PO PRN ×10 (02:25→23:50)
[2020-07-04 05:58] LABS: Hematocrit 27.7 % (35.3-44.9); Hemoglobin 8.5 g/dL (11.5-15.4); Mean Corpuscular HGB Conc 30.7 g/dL (31.6-35.5); Mean Corpuscular Hemoglobin 25.6 pg (28.0-33.3); Mean Corpuscular Volume 83.4 fL (83.0-100.0); Mean Platelet Volume 10.8 fL (9.4-12.4); Platelet Count 307 K/mcL (140-400); Red Blood Count 3.32 M/mcL (3.82-4.97); Red Cell Distribution Width 18.6 % (11.5-14.5); White Blood Count 8.1 K/mcL (4.3-11.1)
[2020-07-04 06:13] LABS: Calcium 8.8 mg/dL (8.6-10.3); Potassium 4.2 mEq/L (3.5-5.1)
[2020-07-04] MEDS: *HR* Enoxaparin 150 MG/ML SYRINGE SQ SCH ×2 (06:19→17:35)
[2020-07-04] MEDS: Piperacillin/Tazobactam 3.375 GM in 0.9 % Sodium Chloride Mini Bag 100 ML IVPB SCH ×3 (08:06→23:49)
[2020-07-04] MEDS: amLODIPine 5 MG TABLET PO SCH (08:06)
[2020-07-04] MEDS: Pregabalin 75 MG CAPSULE PO SCH ×2 (08:06→19:41)
[2020-07-04] MEDS: *HR* OxyCODONE/APAP 5/325 TABLET PO PRN ×2 (08:06→14:21)
[2020-07-04] MEDS: Insulin LISPRO 300 UNITS/3 ML VIAL SQ SCH ×4 (08:07→19:40)
[2020-07-04] MEDS ORDERED: MOM Conc 10 ML UD.LIQ PO PRN (08:47)
[2020-07-04] MEDS: Linezolid 600 MG TABLET PO SCH (17:35)
[2020-07-04] MEDS: Insulin DETEMIR 100 UNIT/ML X5UNITS SQ SCH (17:36)
[2020-07-05] MEDS: *HR* HYDROmorphone 2 MG TABLET PO PRN ×5 (01:05→11:12)
[2020-07-05] MEDS: *HR* OxyCODONE Immed Rel 5 MG TABLET PO PRN ×2 (02:23→08:14)
[2020-07-05] MEDS: Linezolid 600 MG TABLET PO SCH (04:59)
[2020-07-05] MEDS: *HR* Enoxaparin 150 MG/ML SYRINGE SQ SCH (04:59)
[2020-07-05] MEDS: Pregabalin 75 MG CAPSULE PO SCH ×2 (08:13→20:23)
[2020-07-05] MEDS: Piperacillin/Tazobactam 3.375 GM in 0.9 % Sodium Chloride Mini Bag 100 ML IVPB SCH (08:14)
[2020-07-05] MEDS: amLODIPine 5 MG TABLET PO SCH (08:14)
[2020-07-05] MEDS: Insulin LISPRO 300 UNITS/3 ML VIAL SQ SCH ×4 (08:15→21:10)
[2020-07-05] MEDS ORDERED: *HR* OxyCODONE/APAP 5/325 TABLET PO PRN (14:15)
[2020-07-05] MEDS: *HR* OxyCODONE/APAP 10/325 TABLET PO PRN (16:29)
[2020-07-05] MEDS: *HR* Rivaroxaban 15 MG TABLET PO SCH (16:29)
[2020-07-05] MEDS: Insulin DETEMIR 100 UNIT/ML X5UNITS SQ SCH (18:41)
[2020-07-05] MEDS: *HR* OxyCODONE ER (12 HR) 20 MG TABLET PO SCH (20:23)
[2020-07-06] MEDS: *HR* OxyCODONE/APAP 10/325 TABLET PO PRN ×3 (02:59→17:24)
[2020-07-06] MEDS ORDERED: methocarbamoL 500 MG TABLET PO ONE (04:13)
[2020-07-06] MEDS: *HR* OxyCODONE ER (12 HR) 20 MG TABLET PO SCH ×2 (06:22→18:29)
[2020-07-06] MEDS: Pregabalin 75 MG CAPSULE PO SCH ×2 (09:49→21:29)
[2020-07-06] MEDS: amLODIPine 5 MG TABLET PO SCH (09:49)
[2020-07-06] MEDS: *HR* Rivaroxaban 15 MG TABLET PO SCH ×2 (09:49→17:24)
[2020-07-06] MEDS: Insulin LISPRO 300 UNITS/3 ML VIAL SQ SCH ×4 (09:49→21:29)
[2020-07-06] MEDS: Sacubitril/Valsartan 97/103 MG 1 TAB TABLET PO SCH ×2 (12:14→21:29)
[2020-07-06] MEDS: Insulin DETEMIR 100 UNIT/ML X5UNITS SQ SCH (18:29)
[2020-07-07] MEDS: *HR* OxyCODONE/APAP 10/325 TABLET PO PRN ×2 (03:29→09:34)
[2020-07-07] MEDS: *HR* OxyCODONE ER (12 HR) 20 MG TABLET PO SCH ×2 (06:36→18:07)
[2020-07-07] MEDS: amLODIPine 5 MG TABLET PO SCH (08:42)
[2020-07-07] MEDS: Pregabalin 75 MG CAPSULE PO SCH ×2 (08:43→21:18)
[2020-07-07] MEDS: Sacubitril/Valsartan 97/103 MG 1 TAB TABLET PO SCH ×2 (08:43→21:18)
[2020-07-07] MEDS: *HR* Rivaroxaban 15 MG TABLET PO SCH ×2 (08:43→17:46)
[2020-07-07] MEDS: Insulin LISPRO 300 UNITS/3 ML VIAL SQ SCH ×4 (08:44→20:52)
[2020-07-07] MEDS: Insulin DETEMIR 100 UNIT/ML X5UNITS SQ SCH (17:48)
[2020-07-08] MEDS: *HR* OxyCODONE ER (12 HR) 20 MG TABLET PO SCH (06:15)
[2020-07-08] MEDS: Insulin LISPRO 300 UNITS/3 ML VIAL SQ SCH ×2 (08:04→13:11)
[2020-07-08] MEDS: *HR* Rivaroxaban 15 MG TABLET PO SCH ×2 (08:07→16:39)
[2020-07-08] MEDS: Sacubitril/Valsartan 97/103 MG 1 TAB TABLET PO SCH (08:07)
[2020-07-08] MEDS: amLODIPine 5 MG TABLET PO SCH (08:07)
[2020-07-08] MEDS: Pregabalin 75 MG CAPSULE PO SCH (08:08)
[2020-07-08] MEDS: *HR* OxyCODONE/APAP 10/325 TABLET PO PRN (16:30)
[2020-07-08 16:55] VITALS: BP 151/65
== END 2020-07-08 17:57 | DRG 305 ==
LOC: 3BNU 16:38 → EMEROOARM 16:38 → SUATTDRO 20:37 → 3BNU 21:15 → 3ANU 07-05 16:24
PROVIDERS: ADMIT Student in an Organized Health Care Education/Training Program; ATTEND Nurse Practitioner Adult Health